=== PATIENT | female | born 1950 | race Caucasian/White ===

== ENCOUNTER 2019-05-21 06:00 | Outpatient (RCR) | payer MEDICARE, OTHER, SELFPAY | END 2019-06-11 00:01 | LOC: APT 06:00 | PROVIDERS: Family Provider Nurse Practitioner Family; Visit Provider Family Medicine | DX: M25.562 Pain in left knee (principal) | CPT/HCPCS: 97110 ×5; 97161 ==

== ENCOUNTER 2019-06-13 | Outpatient (RCR) | payer MEDICARE, OTHER, SELFPAY | END 2019-06-26 | disposition home or self-care (01) | LOC: APT | PROVIDERS: PCP Family Medicine; Visit Provider Family Medicine | DX: M25.562 Pain in left knee (principal) | CPT/HCPCS: 97110 ==

== ENCOUNTER 2019-08-05 13:17 | Outpatient (CLI) | payer MEDICARE, OTHER, SELFPAY ==
--- NOTE | 2019-08-05 13:38 | MM_ITS ---
WS: [id number] BILATERAL DIGITAL SCREENING MAMMOGRAPHY WITH CAD CLINICAL INFORMATION: SCREEN HISTORY: Screening mammogram. No current complaints. COMPARISON: May 15, 2018 TECHNIQUE: Bilateral CC and MLO views. FINDINGS: Scattered fibroglandular densities bilaterally. Punctate and lucent centered calcifications. No suspi cious focal mass, asymmetry, calcifications, or architectural distortion. No evidence of malignancy. MM/[place] [id number] IMPRESSION: BI-RADS: 2-Benign FOLLOW UP: 1 Year Follow-up Recommend return to annual screening mammography.
== END 2019-08-05 13:18 | disposition home or self-care (01) ==
LOC: RADSHAW 13:22
PROVIDERS: Family Provider Nurse Practitioner Family; PCP Family Medicine; Visit Provider Family Medicine
DX: Z12.31 Encounter for screening mammogram for malignant neoplasm of breast (principal)
CPT/HCPCS: 77067

== ENCOUNTER 2020-10-12 09:54 | Outpatient (CLI) | payer MEDICARE, OTHER, SELFPAY ==
--- NOTE | 2020-10-12 10:03 | MM_ITS ---
WS: [id number] BILATERAL SCREENING DIGITAL MAMMOGRAM WITH CAD HISTORY: SCREENING COMPARISON: 08/05/2019 and 05/08/2017 and 05/15/2018 Bilateral CC and MLO views submitted. Computer aided detection analyzed. Breast composition: There are scattered areas of fibroglandular density. No suspicious masses, microc alcifications or architectural distortion. Benign calcifications. MM/[place] [id number] IMPRESSION: BI-RADS: 2-Benign FOLLOW UP: 1 Year Follow-up
== END 2020-10-12 09:55 | disposition home or self-care (01) ==
LOC: RADSHAW 09:56
PROVIDERS: PCP Family Medicine; Visit Provider Family Medicine
DX: Z12.31 Encounter for screening mammogram for malignant neoplasm of breast (principal)
CPT/HCPCS: 77067

== ENCOUNTER 2020-12-06 20:00 | Emergency (ER) | payer MEDICARE, OTHER, SELFPAY ==
--- NOTE | 2020-12-06 20:25 | XRR_ITS ---
PROCEDURE INFORMATION: Exam: XR Chest Exam date and time: 12/06/2020 8:25 PM Age: 70 years old Clinical indication: Other: Weakness; Additional info: Nausea, weakness TECHNIQUE: Imaging protocol: XR of the chest. Views: 1 view. COMPARISON: No relevant prior studies available. FINDINGS: Lungs: Unremarkable. No consolidation. Pleural spaces: Unremarkable. No pleural effusion. No pneumothorax. Heart/Mediastinum: Unremarkable. No cardiomegaly. Bones/joints: Unremarkable. XR/XR chest 1V portable [id number] IMPRESSION: No acute findings.
--- NOTE | 2020-12-06 20:25 | ECG_ITS ---
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 Measurements Intervals [place] Rate: 83 P: 73 [place]: 164 QRS: 64 QRSD: 86 T: 76 QT: 388 QTc: 457 Interpretive Statements SINUS RHYTHM POSSIBLE LEFT ATRIAL ENLARGEMENT [-0.1mV P WAVE IN V1/V2] MINIMAL ST DEPRESSION [0.025+ mV ST DEPRESSION] No previous ECG available for comparison Electronically Signed On 12-07-2020 21:09:58 CDT by Jorge Yanes M.D. [id number]
[2020-12-06 20:57] VITALS: BP 151/79; PULSE 95; RESP 17; TEMP 36.6; O2SAT 96; BMI 32.9
[2020-12-06 21:32] VITALS: BP 148/82; PULSE 75; RESP 20; O2SAT 95
[2020-12-06 21:47] LABS: Basophils # 0.1 10^3/uL (0.0-0.1); Basophils % 0.8 %; Eosinophils # 0.1 10^3/uL (0.0-0.8); Eosinophils % 1.5 %; Hematocrit 43.2 % (37.0-47.0); Lymphocytes # 2.6 10^3/uL (0.8-4.8); Lymphocytes % 35.9 %; Mean Corpuscular HGB Conc 32.4 g/dL (30.0-36.0); Mean Corpuscular Hemoglobin 30.4 pg (28.0-34.0); Mean Corpuscular Volume 93.9 fL (81-99); Mean Platelet Volume 12.2 fL (7.4-10.4); Monocytes # 0.7 10^3/uL (0.2-0.9); Monocytes % 9.5 %; Neutrophils # 3.72 10^3/uL (1.8-7.7); Neutrophils % 52.2 %; Nucleated Red Blood Cells % 0 %; Platelet Count 261 10^3/cmm (130-400); Red Cell Distribution Width 13.1 % (12.1-15.1); White Blood Count 7.2 10^3/uL (4.0-10.0)
--- NOTE | 2020-12-06 21:49 | XRR_ITS ---
PROCEDURE INFORMATION: Exam: XR Abdomen Exam date and time: 12/06/2020 9:49 PM Age: 70 years old Clinical indication: Bloating; Additional info: Abd pain, bloating TECHNIQUE: Imaging protocol: XR of the abdomen. Views: Frontal supine view of the abdomen. 1 View. COMPARISON: CR (CHEST, ) 12/06/2020 9:31 PM FINDINGS: Gastrointestinal tract: Normal. No bowel dilation. Bones/joints: Unremarkable. XR/XR KUB portable [id number] IMPRESSION: No acute findings.
[2020-12-06 21:54] LABS: Bilirubin Urine Neg (Negative); Blood Urine Neg (Negative); Glucose Urine UA Norm (Normal); Ketones Urine Negative (Negative); Nitrate Urine Negative (Negative); Protein Urine Neg (Negative); Specific Gravity, Urine 1.005 (1.005-1.030); Urine Appearance Clear (CLEAR); Urine Color Yellow (Yellow); Urobilinogen Urine Norm (Negative); pH Urine 7 (5-7)
[2020-12-06 21:55] LABS: Add Urine Microscopic? YES; Leukocyte Esterase Urine 1+ (Negative)
[2020-12-06 21:58] LABS: Lactic Sepsis W/Reflex 1.1 mmol/L (0.5-2.2); Troponin(5th) Baseline 11 ng/L (0-10)
[2020-12-06 22:00] VITALS: BP 142/75; PULSE 77; RESP 22; O2SAT 94
[2020-12-06] MEDS: sodium chloride 0.9% 1,000 ML 999 ML IV ×2 (22:00→23:58)
[2020-12-06 22:03] LABS: Alanine Aminotransferase 24 U/L (0-33); Albumin Level 4.1 g/dL (3.5-5.2); Alkaline Phosphatase 74 IU/L (35-105); Anion Gap 14.4 (5-19); Aspartate Amino Transferase 34 U/L (0-32); Blood Urea Nitrogen 6 mg/dL (8-23); Calcium 9.6 mg/dL (8.5-10.5); Carbon Dioxide 27 mmol/L (22-29); Chloride 101 mmol/L (98-107); Globulin 2.3 g/dL (1.3-4.6); Glucose 117 mg/dL (65-115); Osmolality Calculated 287 mOsm/kg (285-295); Potassium 3.4 mmol/L (3.5-5.1); Sodium 139 mmol/L (136-145); Thyroid Stimulating Hormone 3.08 uIU/mL (0.27-4.20); Total Bilirubin 0.6 mg/dL (0.15-1.2); Total Protein 6.4 g/dL (6.6-8.7)
[2020-12-06 22:17] LABS: Magnesium 1.9 mg/dL (1.7-2.3)
[2020-12-06 22:17] LABS: Add Urine Culture? No; Bacteria Urine 2+ /hpf; RBC Urine 0-4 /hpf (0-2); Squamous Epithelial Cell Urine 15-25 /hpf (0-5); WBC Urine 25-40 /hpf (0-5)
[2020-12-06 22:20] LABS: Creatine Phosphokinase 515 U/L (26-192)
--- NOTE | 2020-12-06 22:25 | ECG_ITS ---
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 Measurements Intervals [place] Rate: 72 P: 69 MT: 175 QRS: 45 QRSD: 90 T: 74 QT: 438 QTc: 482 Interpretive Statements SINUS RHYTHM MINIMAL ST DEPRESSION [0.025+ mV ST DEPRESSION] Compared to ECG 12/06/2020 20:53:14 No significant changes Electronically Signed On 12-09-2020 0:33:16 CDT by Jorge Yanes M.D. [email or web address] [email or web address].[email or web address]/store/[id number]
[2020-12-06] MEDS: cefTRIAXone 1,000 MG in sodium chloride 0.9% (plus) 50 ML 100 MG IV (23:15)
[2020-12-06 23:45] VITALS: BP 162/103; PULSE 78; RESP 21; O2SAT 94
[2020-12-07] VITALS: BP 162/90; PULSE 85; RESP 21; O2SAT 95
[2020-12-07 00:38] VITALS: BP 155/85; PULSE 79; RESP 14; TEMP 36.6; O2SAT 96
--- NOTE | 2020-12-07 07:14 | W.ED.DIZZY ---
HPI - Dizziness General: Chief Complaint: Dizziness Stated Complaint: nausea, weak Time Seen by Provider: 12/06/20 21:20 History of Present Illness: HPI Narrative: 70-year-old female who complains of malaise, dizziness when getting up, nausea, anorexia, for the past few days. She notes that she has been moving, and working out in the heat quite a bit. She reports several instances of getting too hot . She notes that her urine has been stronger as well. She denies coughing or vomiting. She denies diarrhea. MD elicited complaint: dizziness and lightheadedness Pertinent past history: other Onset (ago): day(s) Timing: gradual onset Severity: moderate Description: lightheadedness, off-balance and near-syncope Context: exertion and other History of similar symptoms: No Exacerbating factors: movement/ambulation and change in body position Relieving factors: rest Associated symptoms: Reports malaise, nausea and weakness (Generalized); Denies change in hearing, chest pain, chills, cough, diaphoresis, fevers/chills, headache(s), nasal congestion, palpitations, rash, short of breath or syncope Associated neuro symptoms: Deny confusion, difficulty speaking, dysphagia, extremity weakness, facial numbness, facial weakness or visual changes Review of Systems Const: Reports: malaise; Denies: chills or diaphoresis ENMT: Denies: change in hearing or nasal congestion Card: Denies: chest pain, palpitations or syncope GI: Reports: nausea; Denies: dysphagia Neuro: Denies: headache(s) or confusion Physical Exam Const: GENERAL APPEARANCE: well developed ORIENTATION/CONSCIOUSNESS: Yes oriented to person, Yes oriented to place and Yes oriented to time HENMT: COMMON NORMALS: normocephalic, external ears normal and Normal external nose present HEAD & SCALP: normocephalic FACE & SINUS: normal facial exam NOSE: Normal external nose present and No nasal discharge present EXTERNAL EAR: Yes external ears normal THROAT: posterior oropharynx normal; no peritonsillar mass Eye: COMMON NORMALS: Equal, round and reactive pupils present, EOMs intact bilaterally and conjunctivae normal EYELID: eyelids normal CONJUNCTIVA: Yes conjunctivae normal PUPIL: Yes Equal, round and reactive pupils present Neck/C-Spine: GENERAL: No tracheal deviation Chest: COMMONS NORMALS: normal inspection of the chest CHEST: No tenderness Resp: COMMON NORMALS: clear to auscultation bilaterally EFFORT & INSPECTION: No tachypneic, No respiratory distress, No retractions, No uses accessory muscles and No tracheal deviation AUSCULTATION: clear to auscultation bilaterally, no rhonchi, no wheezes and lung sounds not diminished Cardio: COMMON NORMALS: regular rate and regular rhythm RATE: regular rate RHYTHM: regular rhythm HEART SOUNDS: no murmurs PERIPHERAL PULSES: radial pulses present GI: INSPECTION: No abdominal distension AUSCULTATION: No Hyperactive bowel sounds present and No Hypoactive bowel sounds present PALPATION: No Guarding due to palpation present (GI) and No Rigid due to palpation PERCUSSION: no dullness to percussion and no tympanic to percussion Neuro: SENSORIUM/ORIENTATION: Yes oriented to person, Yes oriented to place and Yes oriented to time Psych: COMMON NORMALS: mental status grossly normal Skin: COMMON NORMALS: no rashes or lesions noted GENERAL SKIN EXAM: no rashes or lesions noted Course Vital Signs: Vital signs: Vital Signs Temperature 98 F 12/07/20 00:38 Pulse Rate 79 12/07/20 00:38 Respiratory Rate 14 12/07/20 00:38 Blood Pressure 155/85 12/07/20 00:38 Pulse Oximetry 96 12/07/20 00:38 MDM - Dizziness MDM Narrative: Medical decision making narrative: Patient CK is only mildly elevated at 515. Renal function is normal. Potassium is minimally low, otherwise electrolytes and other labs are benign. She does have a significant urinary tract infection on urinalysis. She is received 2 L of fluid here, and is feeling improved. She has been treated with Rocephin for the UTI. She would like to go home. She is going to be discharged on cefdinir, and oral Zofran for the nausea. She knows to return for any worsening symptoms whatsoever. Her KUB was also negative as well as her chest x-ray. Lab Data: Labs: Lab Results 12/06/20 12/06/20 12/06/20 Range/Units 21:21 21:21 21:21 WBC 7.2 (4.0-10.0) 10^3/ uL RBC 4.60 (4.1-5.3) 10^6/u L Hgb 14.0 (11.5-15.3) g/dL Hct 43.2 (37.0-47.0) % MCV 93.9 (81-99) fL MCH 30.4 (28.0-34.0) pg MCHC 32.4 (30.0-36.0) g/dL RDW 13.1 (12.1-15.1) % Plt Count 261 (130-400) 10^3/c mm MPV 12.2 H (7.4-10.4) fL Neut % (Auto) 52.2 % Lymph % (Auto) 35.9 % [place] % (Auto) 9.5 % Eos % (Auto) 1.5 % Baso % (Auto) 0.8 % Neut # (Auto) 3.72 (1.8-7.7) 10^3/u L Lymph # (Auto) 2.6 (0.8-4.8) 10^3/u L [place] # (Auto) 0.7 (0.2-0.9) 10^3/u L Eos # (Auto) 0.1 (0.0-0.8) 10^3/u L Baso # (Auto) 0.1 (0.0-0.1) 10^3/u L Nucleated RBC % (a uto) 0 % Nucleated RBCs # 0.0 /100WBC Sodium 139 (136-145) mmol/L Potassium 3.4 L (3.5-5.1) mmol/L Chloride 101 (98-107) mmol/L Carbon Dioxide 27 (22-29) mmol/L Anion Gap 14.4 (5-19) BUN 6 L (8-23) mg/dL Creatinine 0.7 (0.5-0.9) mg/dL GFR Calculation Not Reportable Glucose 117 H (65-115) mg/dL Calculated Osmolal ity 287 (285-295) mOsm/k g Lactic Acid 1.1 (0.5-2.2) mmol/L Calcium 9.6 (8.5-10.5) mg/dL Magnesium (1.7-2.3) mg/dL Total Bilirubin 0.6 (0.15-1.2) mg/dL AST 34 H (0-32) U/L ALT 24 (0-33) U/L Alkaline Phosphata se 74 (35-105) IU/L Creatine Kinase (26-192) U/L Troponin T Baselin e (0-10) ng/L Total Protein 6.4 L (6.6-8.7) g/dL Albumin 4.1 (3.5-5.2) g/dL Globulin 2.3 (1.3-4.6) g/dL TSH 3.08 (0.27-4.20) uIU/ mL Urine Color (Yellow) Urine Appearance (CLEAR) Urine pH (5-7) Ur Specific Gravit y (1.005-1.030) Urine Protein (Negative) Urine Glucose (UA) (Normal) Urine Ketones (Negative) Urine Blood (Negative) Urine Nitrate (Negative) Urine Bilirubin (Negative) Urine Urobilinogen (Negative) mg/dL Ur Leukocyte [place] ase (Negative) Urine RBC (0-2) /hpf Urine WBC (0-5) /hpf Ur Squamous Epith Cells (0-5) /hpf Amorphous Sediment Urine Bacteria (NONE) /hpf 12/06/20 12/06/20 12/06/20 Range/Units 21:21 21:21 21:31 WBC (4.0-10.0) 10^3/ uL RBC (4.1-5.3) 10^6/u L Hgb (11.5-15.3) g/dL Hct (37.0-47.0) % MCV (81-99) fL MCH (28.0-34.0) pg MCHC (30.0-36.0) g/dL RDW (12.1-15.1) % Plt Count (130-400) 10^3/c mm MPV (7.4-10.4) fL Neut % (Auto) % Lymph % (Auto) % [place] % (Auto) % Eos % (Auto) % Baso % (Auto) % Neut # (Auto) (1.8-7.7) 10^3/u L Lymph # (Auto) (0.8-4.8) 10^3/u L [place] # (Auto) (0.2-0.9) 10^3/u L Eos # (Auto) (0.0-0.8) 10^3/u L Baso # (Auto) (0.0-0.1) 10^3/u L Nucleated RBC % (a uto) % Nucleated RBCs # /100WBC Sodium (136-145) mmol/L Potassium (3.5-5.1) mmol/L Chloride (98-107) mmol/L Carbon Dioxide (22-29) mmol/L Anion Gap (5-19) BUN (8-23) mg/dL Creatinine (0.5-0.9) mg/dL GFR Calculation Glucose (65-115) mg/dL Calculated Osmolal ity (285-295) mOsm/k g Lactic Acid (0.5-2.2) mmol/L Calcium (8.5-10.5) mg/dL Magnesium 1.9 (1.7-2.3) mg/dL Total Bilirubin (0.15-1.2) mg/dL AST (0-32) U/L ALT (0-33) U/L Alkaline Phosphata se (35-105) IU/L Creatine Kinase 515 H* (26-192) U/L Troponin T Baselin e 11 H (0-10) ng/L Total Protein (6.6-8.7) g/dL Albumin (3.5-5.2) g/dL Globulin (1.3-4.6) g/dL TSH (0.27-4.20) uIU/ mL Urine Color Yellow (Yellow) Urine Appearance Clear (CLEAR) Urine pH 7 (5-7) Ur Specific Gravit y 1.005 (1.005-1.030) Urine Protein Neg (Negative) Urine Glucose (UA) Norm (Normal) Urine Ketones Negative (Negative) Urine Blood Neg (Negative) Urine Nitrate Negative (Negative) Urine Bilirubin Neg (Negative) Urine Urobilinogen Norm (Negative) mg/dL Ur Leukocyte [place] ase 1+ H (Negative) Urine RBC 0-4 H (0-2) /hpf Urine WBC 25-40 H (0-5) /hpf Ur Squamous Epith Cells 15-25 H (0-5) /hpf Amorphous Sediment Not Reportable Urine Bacteria 2+ H (NONE) /hpf Discharge Plan Discharge Patient Disposition: Home Clinical Impression: Acute dehydration Urinary tract infection Qualifiers: Urinary tract infection type: acute cystitis Hematuria presence: without hematuria Qualified Code(s): N30.00 - Acute cystitis without hematuria Condition: Stable Prescriptions: New cefdinir 300 mg capsule 300 mg PO BID 7 Days Qty: 14 RF: 0 Zofran 4 mg tablet 4 mg PO Q6H PRN (Reason: nausea and vomiting) Qty: 10 RF: 0 Discharge Orders: Discharge ED (Routine); Ordered 12/07/20 Ordered By: Semaj Saab Referrals: Que Joyce MD [Primary Care Provider] - 1-3 days Discharge Diet: Advance as tolerated Discharge Activity: Increase activity as tolerated Patient Instructions: Dehydration (ED), Urinary Tract Infection in Women (ED) Activity Restrictions/Additional Instructions: Return for fever greater than 100, mental status changes, worsening dehydration, any other concerning symptoms. Make sure liquid intake is appropriate. Follow-up in the next couple of days with your doctor. Antibiotics as directed. Coding Level of Care Code ED Higher Level Teaching Assistant for Juliana Romero
== END 2020-12-07 00:40 | disposition home or self-care (01) ==
PROVIDERS: Physician Assistant; Emergency Provider Emergency Medicine; PCP Family Medicine
DX: N30.00 Acute cystitis without hematuria (principal); E86.0 Dehydration; R53.81 Other malaise
CPT/HCPCS: 71045; 74018; 80053; 81001; 82550; 83605; 83735; 84443; 84484; 85025; 93005; 96361; 96365; 99284; J0696; J7030

== ENCOUNTER 2021-03-08 15:45 | Outpatient (CLI) | payer MEDICARE, OTHER, SELFPAY ==
--- NOTE | 2021-03-08 | XR_ITS ---
WS: [id number] SCREENING DEXA SCAN [facility] CLINICAL INFORMATION: OSTEOPOROSIS COMPARISON: None. FINDINGS: The L1-L4 bone mineral density measures 1.249 g/cm2. This corresponds to a T score score of 0.6 and Z score of 1.9. Left femoral neck bone mineral density measures 0.951 g/cm2. This corresponds to a T score of -0.4 an d Z score of 0.9. Right femoral neck bone mineral density measures 0.978 g/cm2. This corresponds to a T score -0.2of an d Z score of 1.1. Mean femoral neck bone mineral density measures 0.965 g/cm2. This corresponds to a T score of -0.3 an d Z score of 1.0. XR/XR DEXA axial skeleton* [id number] IMPRESSION: Normal bone mineralization. Patient's FRAX calculated 10 year probability for major osteoporotic fracture i s 9.1 % and osteoporotic hip fracture is 1.1%.
== END 2021-03-08 15:46 | disposition home or self-care (01) ==
PROVIDERS: PCP Family Medicine; Visit Provider Family Medicine
DX: M81.0 Age-related osteoporosis without current pathological fracture (principal)
CPT/HCPCS: 77080

== ENCOUNTER 2021-11-12 13:02 | Outpatient (CLI) | payer MEDICARE, OTHER, SELFPAY ==
--- NOTE | 2021-11-12 13:07 | MM_ITS ---
WS: [id number] BILATERAL 3D TOMOSYNTHESIS DIGITAL SCREENING MAMMOGRAPHY WITH CAD CLINICAL INFORMATION: SCREENING HISTORY: Screening mammogram. No current complaints. COMPARISON: October 12, 2020 TECHNIQUE: Bilateral CC and MLO views. FINDINGS: Scattered fibroglandular densities bilaterally. Punctate and lucent centered calcifications. Stable i ntramammary lymph nodes upper outer LEFT breast. No suspicious focal mass, asymmetry, calcifications, or architectural distortion. No evidence of malignancy. MM/[place] [id number] IMPRESSION: BI-RADS: 2-Benign FOLLOW UP: 1 Year Follow-up Recommend return to annual screening mammography.
== END 2021-11-12 13:03 | disposition home or self-care (01) ==
LOC: RAD 13:03
PROVIDERS: PCP Family Medicine; Visit Provider Family Medicine
DX: Z12.31 Encounter for screening mammogram for malignant neoplasm of breast (principal)
CPT/HCPCS: 77063; 77067

== ENCOUNTER → 2021-12-24 10:39 | Outpatient (BNVA) | payer MEDICARE, OTHER, SELFPAY | PROVIDERS: PCP Family Medicine; Visit Provider Podiatrist Foot & Ankle Surgery | DX: S82.51XA Displaced fracture of medial malleolus of right tibia, initial encounter for closed fracture (principal); S99.911A Unspecified injury of right ankle, initial encounter; W19.XXXA Unspecified fall, initial encounter | CPT/HCPCS: 73610; 73620; 73630; 99204 ==

== ENCOUNTER → 2022-02-08 10:18 | Outpatient (BNVA) | payer MEDICARE, OTHER, SELFPAY | PROVIDERS: PCP Family Medicine; Visit Provider Nurse Practitioner Family | DX: R07.89 Other chest pain (principal) | CPT/HCPCS: 71046; 85025 ==

== ENCOUNTER → 2022-03-31 09:02 | Outpatient (BNVA) | payer MEDICARE, OTHER, SELFPAY | PROVIDERS: PCP Family Medicine; Visit Provider Nurse Practitioner Family | DX: R30.0 Dysuria (principal); N39.0 Urinary tract infection, site not specified | CPT/HCPCS: 81000 ==

== ENCOUNTER → 2022-04-27 11:32 | Outpatient (BNVA) | payer MEDICARE, OTHER, SELFPAY | PROVIDERS: PCP Family Medicine; Visit Provider Nurse Practitioner Family | DX: N39.0 Urinary tract infection, site not specified (principal) | CPT/HCPCS: 81000; 87077; 87086; 87184 ==

== ENCOUNTER → 2022-05-11 11:31 | Outpatient (BNVA) | payer MEDICARE, OTHER, SELFPAY | PROVIDERS: PCP Family Medicine; Visit Provider Nurse Practitioner Family | DX: N39.0 Urinary tract infection, site not specified (principal) | CPT/HCPCS: 81000 ==

== ENCOUNTER → 2022-06-29 13:47 | Outpatient (BNVA) | payer MEDICARE, OTHER, SELFPAY | PROVIDERS: PCP Family Medicine; Visit Provider Nurse Practitioner Family | DX: R30.0 Dysuria (principal) | CPT/HCPCS: 81000 ==

== ENCOUNTER → 2022-08-31 09:00 | Outpatient (BNVA) | payer MEDICARE, OTHER, SELFPAY | PROVIDERS: PCP Family Medicine; Visit Provider Nurse Practitioner Family | DX: J01.40 Acute pansinusitis, unspecified (principal); R05.9 Cough, unspecified | CPT/HCPCS: 87426 ==

== ENCOUNTER → 2022-11-02 10:06 | Outpatient (BNVA) | payer MEDICARE, OTHER, SELFPAY | PROVIDERS: PCP Family Medicine; Visit Provider Nurse Practitioner Family | DX: R30.0 Dysuria (principal) | CPT/HCPCS: 81000 ==

== ENCOUNTER → 2022-11-22 10:51 | Outpatient (BNVA) | payer MEDICARE, OTHER, SELFPAY | PROVIDERS: PCP Family Medicine; Visit Provider Nurse Practitioner Family | DX: N39.0 Urinary tract infection, site not specified (principal) | CPT/HCPCS: 81000 ==

== ENCOUNTER → 2023-01-06 10:10 | Outpatient (BNVA) | payer MEDICARE, OTHER, SELFPAY | PROVIDERS: PCP Family Medicine; Visit Provider Nurse Practitioner Family | DX: M79.89 Other specified soft tissue disorders (principal); R39.11 Hesitancy of micturition | CPT/HCPCS: 80053; 81000; 85025 ==

== ENCOUNTER 2023-02-21 11:06 | Outpatient (CLI) | payer MEDICARE, OTHER, SELFPAY ==
--- NOTE | 2023-02-21 11:24 | USCV_ITS ---
Venita Oconnell Age: 72 Gender: F : 1950 Exam Date: 02/21/2023 11:38 Ordering Phys: Deandre Bay DO Technologist: Exam [place] [facility] [place]: Chest pain BP: 125 / 70 HR: 70 Rhythm: Sinus Technical Quality: Adequate MEASUREMENTS (Male / Female) Normal Values 2D ECHO LV Diastolic Diameter PLAX 4.0 cm 4.2 - 5.9 / 3.9 - 5.3 cm LV Systolic Diameter PLAX 2.3 cm IVS Diastolic Thickness 0.9 cm 0.6 - 1.0 / 0.6 - 0.9 cm IVS Systolic Thickness 1.6 cm LVPW Diastolic Thickness 1.1 cm 0.6 - 1.0 / 0.6 - 0.9 cm LVPW Systolic Thickness 1.1 cm LVOT Diameter 2.0 cm LV Ejection Fraction 2D Teich 74.6 % LV Ejection Fraction MOD 2C 80.1 % LV Ejection Fraction 2C AL 80.2 % LA Diameter 2.8 cm IVC Diameter 1.2 cm M-MODE Aortic Annulus Diameter 2.5 cm LA Ao Ratio MM 1.2 MV E Point Septal Separation 0.6 cm DOPPLER AV Peak Velocity 182.0 cm/s LVOT Peak Velocity 100.0 cm/s AV Area Cont Eq vti 2.2 cm squared AV Area Cont Eq pk 1.8 cm squared MV Area PHT 3.9 cm squared Mitral E to A Ratio 0.9 MV E' Velocity 55.0 cm/s Mitral E to MV E' Ratio 9.5 Mitral E to LV E' Lateral Ratio 9.6 Mitral E to LV E' Septal Ratio 9.4 TR Peak Velocity 302.8 cm/s TR Peak Gradient 36.7 mmHg TV Peak E Velocity 101.0 cm/s Right Atrial Pressure 3.0 mmHg Pulmonary Artery Systolic Pressu 39.7 mmHg RV Acceleration Time 0.2 s FINDINGS Left Ventricle Normal left ventricular size, systolic function and wall thickness, with no regional wall motion abnormalities. Left ventricular ejection fraction is estimated at 65 %. Normal diastolic function. Right Ventricle Normal right ventricular size and systolic function. Right ventricular systolic pressure 39.7 mmHg. Right Atrium Normal right atrial size. Left Atrium Normal left atrial size. Mitral Valve Mildly thickened mitral valve. No mitral valve stenosis. Mild mitral valve regurgitation. Aortic Valve Structurally normal trileaflet aortic valve. No aortic valve stenosis. Trace aortic valve regurgitation. Tricuspid Valve Structurally normal tricuspid valve. No tricuspid valve stenosis. Mild tricuspid valve regurgitation. Pulmonic Valve Pulmonic valve not well visualized. Trace pulmonary valve regurgitation. Pericardium No pericardial effusion. Aorta Normal size aortic root and proximal ascending aorta. IVC Normal IVC dimension with >50% respiratory change of the inferior vena cava. CONCLUSIONS 1. Normal left ventricular size, systolic function and wall thickness, with no regional wall motion abnormalities. Left ventricular ejection fraction is estimated at 65 %. Normal diastolic function. 2. Mild mitral and tricuspid valve regurgitation. 3. No prior similar studies to compare. Indira Love MD (Electronically Signed) Final Date: 26 February 2023 08:14 S
== END 2023-02-21 11:07 | disposition home or self-care (01) ==
PROVIDERS: PCP Family Medicine; Visit Provider Electrodiagnostic Medicine
DX: R01.1 Cardiac murmur, unspecified (principal); I08.1 Rheumatic disorders of both mitral and tricuspid valves
CPT/HCPCS: 93306

== ENCOUNTER 2023-03-14 19:10 | Inpatient (IN) | payer MEDICARE, OTHER, SELFPAY ==
[2023-03-14 19:12] VITALS: BP 172/76; PULSE 68; RESP 16; TEMP 36.7; O2SAT 84; BMI 29.2
[2023-03-14 19:21] VITALS: O2SAT 99
--- NOTE | 2023-03-14 19:25 | XRR_ITS ---
PROCEDURE INFORMATION: Exam: XR Right Hip Exam date and time: 03/14/2023 7:52 PM Age: 72 years old Clinical indication: Injury or trauma; Fall; Blunt trauma (contusions or hematomas); Right; Hip and pelvic region TECHNIQUE: Imaging protocol: Radiologic exam of the right hip. Views: 1 view hip with pelvis when performed. COMPARISON: CR XR KUB portable [id number] 12/06/2020 9:57 PM FINDINGS: Bones/joints: Acute transverse fracture through the right proximal femur without involvement of the greater or lesser trochanter. Comminution is present with small displaced fracture fragments. Associated prominent medial angulation of the distal femur relative to the proximal femur. Soft tissues: Asymmetric soft tissue swelling about the right hip small thigh. XR/XR hip RT 2-3V wo/w pel* [id number] IMPRESSION: Acute transverse fracture of the right proximal femoral shaft with prominent medial angulation of the distal femur.
--- NOTE | 2023-03-14 19:25 | XRR_ITS ---
PROCEDURE INFORMATION: Exam: XR Right Knee Exam date and time: 03/14/2023 7:45 PM Age: 72 years old Clinical indication: Injury or trauma; Fall; Blunt trauma; Knee; Right TECHNIQUE: Imaging protocol: Radiologic exam of the right knee. Views: 3 views. COMPARISON: No relevant prior studies available. FINDINGS: Bones/joints: No acute fracture or malalignment. Mild tibiofemoral compartment osteoarthrosis. Soft tissues: Unremarkable. XR/XR knee RT 3V* [id number] IMPRESSION: No acute findings.
--- NOTE | 2023-03-14 19:26 | ED_ITS ---
HPI - Fall General: Chief Complaint: Fall Stated Complaint: fall, right hip pain Time Seen by Provider: 03/14/23 19:19 Source: patient Mode of arrival: EMS Limitations: physical limitation History of Present Illness: Patient is a 72-year-old female who presents to the emergency room via EMS for a fall. Patient states that she was at home moving a table, and slipped and fell on her right lateral hip. Patient has a complaint of lumbar back pain, right hip, right lateral leg, right knee pain. Patient denies any nausea or vomiting. Patient denies hitting her head or losing consciousness. Patient did state that she laid for hours before she was unable to contact family. Patient's pain at this time is 8/10 on pain scale. Denies any other complaints at this time. MD complaint: fall Fall from: standing Fall witnessed: no Loss of consciousness: None Associated symptoms-after fall: Denies abdominal pain, chest pain or headache(s) Review of Systems Const: Denies: fever(s) or chills Eyes: Denies: change in vision or blurry vision ENMT: Denies: throat pain or uvular edema Card: Denies: chest pain or palpitations Resp: Denies: dyspnea or productive cough GI: Denies: abdominal pain, nausea or vomiting : Denies: flank pain or difficulty voiding Musc: Reports: back pain and extremity pain Skin/Breast: Denies: rash or pruritus Neuro: Denies: headache(s) PFSH ED PFSH: Family History Other Cancer Diabetes Social History Smoking and tobacco status: former smoker Alcohol intake: never Caregiver/support person: No Lives independently: Yes Household members: none Marital status: / Number of children: 1 service: No Current occupational status: retired Physical Exam Const: COMMON NORMALS: patient oriented x3 and alert GENERAL APPEARANCE: cooperative HENMT: COMMON NORMALS: normocephalic HEAD & SCALP: normocephalic THROAT: no uvular edema Eye: COMMON NORMALS: Equal, round and reactive pupils present and EOMs intact bilaterally GENERAL EYE: appearance normal, both eyes and all related structures PUPIL: Yes Equal, round and reactive pupils present Neck/C-Spine: COMMON NORMALS: full ROM, no lymphadenopathy and no JVD Lymph: LYMPHATIC: no lymphadenopathy noted Chest: CHEST: Yes Symmetrical chest wall rise Resp: COMMON NORMALS: normal respiratory effort and clear to auscultation bilaterally EFFORT & INSPECTION: Yes symmetric chest movement AUSCULTATION: clear to auscultation bilaterally Cardio: COMMON NORMALS: no JVD and S1 normal heart sound present HEART SOUNDS: S1 normal heart sound present GI: COMMON NORMALS: Normal to inspection, nondistended, normoactive bowel sounds present : BLADDER/KIDNEY EXAM: Yes CVA tenderness Back/Pelvis: GENERAL BACK: Yes CVA tenderness LUMBAR SPINE/LOWER BACK: Yes lumbar spinal tenderness PELVIS: Yes tenderness over symphysis pubis Extremity: COMMON NORMALS: normal to inspection RIGHT LOWER EXTREMITY: Yes hip joint (pain) Right hip: Yes palpation and Yes knee joint (pain) Right knee: Yes palpation Neuro: COMMON NORMALS: patient oriented x3 SENSORIUM/ORIENTATION: Yes alert Course Vital Signs: Vital signs: Vital Signs Temperature 98.0 F 03/14/23 19:12 Pulse Rate 68 03/14/23 19:12 Respiratory Rate 18 03/14/23 19:46 Blood Pressure 172/76 03/14/23 19:12 Pulse Oximetry 98 03/14/23 19:46 Oxygen Delivery Me thod Nasal Cannula 03/14/23 19:21 Oxygen Flow Rate 2 03/14/23 19:21 MDM - Fall Medical Decision Making Patient presents with right hip fracture after a fall spoke to hospitalist along with orthopedist and will admit at this time. Medical Records I reviewed the patient's medical records. XR interpretation done by ED provider, pending radiology final review Discharge Plan Discharge Patient Disposition: Admitted As Inpatient Clinical Impression: Closed fracture of right hip Condition: Stable Coding Level of Care Code ED Talent Development Manager for Juliana Romero
--- NOTE | 2023-03-14 19:37 | XRR_ITS ---
PROCEDURE INFORMATION: Exam: XR Chest Exam date and time: 03/14/2023 8:00 PM Age: 72 years old Clinical indication: Injury or trauma; Fall; Blunt trauma (contusions or hematomas) TECHNIQUE: Imaging protocol: Radiologic exam of the chest. Views: 1 view. COMPARISON: CR XR chest 2V* [id number] 02/08/2022 10:17 AM FINDINGS: Lungs: Moderate lung expansion. Subtle asymmetric left basal opacities. Pleural spaces: No pleural effusion. No pneumothorax. Heart/Mediastinum: Normal cardiomediastinal silhouette. Bones/joints: No acute osseous abnormality. XR/XR chest 1V portable [id number] IMPRESSION: Subtle asymmetric left basal opacities which may be on the basis of atelectasis given suboptimal lung expansion. Superimposed aspiration in the setting of trauma possible.
[2023-03-14 19:46] VITALS: RESP 18; O2SAT 98
[2023-03-14] MEDS: morphine 4 mg/mL SDV 1 mL IVP (19:46)
[2023-03-14 19:49] VITALS: BP 200/94; PULSE 74; RESP 18; O2SAT 98
--- NOTE | 2023-03-14 19:59 | XRR_ITS ---
PROCEDURE INFORMATION: Exam: XR Left Femur Exam date and time: 03/14/2023 8:02 PM Age: 72 years old Clinical indication: Injury or trauma; Fall; Blunt trauma; Thigh or upper leg; Left TECHNIQUE: Imaging protocol: Radiologic exam of the left femur. Views: 2 views. COMPARISON: No relevant prior studies available. FINDINGS: Bones/joints: Unremarkable. No acute fracture. Soft tissues: Vascular calcification. XR/XR femur LT min 2V* [id number] IMPRESSION: No acute osseous abnormality of the left femur.
--- NOTE | 2023-03-14 20:32 | ECG_ITS ---
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 Measurements Intervals [place] Rate: 71 P: 74 [place]: 173 QRS: 44 QRSD: 92 T: 67 QT: 418 QTc: 457 Interpretive Statements SINUS RHYTHM NONSPECIFIC ST & T-WAVE ABNORMALITY Compared to ECG 12/06/2020 22:11:26 T-wave abnormality now present ST (T wave) deviation no longer present Electronically Signed On 03-15-2023 8:27:19 CDT by Benji Barnhart M.D. [id number]
[2023-03-14] MEDS: HYDROmorphone 1 mg/mL INJ 1 mL 0.5 MG IVP (20:34)
[2023-03-14 20:43] VITALS: BP 167/92; PULSE 80; RESP 18; O2SAT 97
--- NOTE | 2023-03-14 21:01 | P.CONIM_ITS ---
Providers/Reason For Consult Consulting Physician/Specialty*: Rc Ramachandran DO/orthopedic surgery Reason for Consult*: Right hip fracture (right subtrochanteric femur fracture Requesting Physician: Dr. Dell Steele Attending Physician: Diogo Sanchez MD Primary Care Provider: Que Joyce MD History of Present Illness History of Present Illness Venita Oconnell is a 72 year old female presents emergency department status post ground-level fall. Has pain in the right hip inability to bear weight found to have a right subtrochanteric femur fracture. History reveals patient has had some pain prior in the right femur region. She states a lot of this has been more sciatica which she has been worked up for. History reveals she has been on bisphosphonates for years she takes this weekly. Findings on x-ray con sistent with an atypical bisphosphonate subtrochanteric femur fracture. Overall patient's fairly healthy she denies any cardiac or pulmonary issues. Denies being on any anticoagulants. Denies loss of consciousness denies any other injuries at this time. Patient lives at home by herself and is very independent does not utilize any cane or walker at baseline. Accompanied by her granddaughter today. Review of Systems General: Reports: 10 or more systems reviewed and unremarkable except in HPI and below Medications/Allergies Home Medications Medication Instructions Recorded Confirmed Last Taken Type donepezil 10 mg tablet 10 mg PO DAILY 12/06/21 01/12/23 Unknown History mupirocin 2 % topical ointment 1 applic topical BID #15 grams 12/24/21 01/12/23 Unknown Rx famciclovir 500 mg tablet 500 mg PO TID 7 days #21 tabs 02/08/22 01/12/23 Un known Rx propranolol 20 mg tablet 10 mg PO ONCE 02/08/22 01/12/23 Unknown History gabapentin 300 mg capsule 300 mg PO BID #60 caps 02/18/22 01/12/23 Unknown Rx furosemide 20 mg tablet (Lasix) 20 mg PO DAILY edema #30 tabs 01/31/23 Unknown Rx Allergies Allergy/AdvReac Type Severity Reaction Status Date / Time No Known Allergies Allergy Verified 03/14/23 19:20 PFSH Acute PFSH: Family History Other Cancer Diabetes Social History (Reviewed 01/12/23 @ 09:34 by ROSALINDA Aleman Smoking and tobacco status: former smoker Alcohol intake: never Caregiver/support person: No Lives independently: Yes Household members: none Marital status: / Number of children: 1 service: No Current occupational status: retired Vitals/I&O/Wt Last Vital Signs Temp 98.0 F 03/14/23 19:12 Pulse 80 03/14/23 20:43 Resp 18 03/14/23 20:43 BP 167/92 03/14/23 20:43 Pulse Ox 97 03/14/23 20:43 O2 Del Method Room Air 03/14/23 20:43 O2 Flow Rate 2 03/14/23 19:21 Weight last 48 hrs Weight 160 lb Physical Exam Narrative: Orthopedic examination: Examination of the right lower extremity demonstrates a mild discomfort along the distal femur no significant swelling noted about the knee. Swelling noted at the right femur. Tenderness to palpation about the right hip. Patient's right lower extremity shortened and externally rotated. Patient has a positive logroll examination. Patient is able to wiggle toes plantarflex and dorsiflex ankle sensations intact light touch distally. Distal pulses palpable lower extremities warm well perfused. Compartments are soft and compressible. Patient is stable pelvis on compression examination. Secondary survey examination: No spine tenderness to palpation. Patient has normal range of motion no tenderness palpation of bilateral upper extremity joints with no deformities noted and no pain on palpation. Left lower extremity no deformities negative logroll left lower extremity has no pain along palpation along the left hip and femur. No tenderness to palpation on left lower extremity joints p atient able to wiggle toes plantarflex and dorsiflex ankle. Const: COMMON NORMALS: no acute distress and average body habitus HENMT: COMMON NORMALS: normocephalic and atraumatic HEAD & SCALP: normocephalic and atraumatic Resp: COMMON NORMALS: normal respiratory effort and No retractions Cardio: COMMON NORMALS: Peripheral pulses 2+ throughout PERIPHERAL PULSES: Peripheral pulses 2+ throughout Data Xray Ortho: My impression: X-rays of the right femur demonstrate a right subtrochanteric femur fracture transverse in nature with lateral cortical thickening consistent with an atypical femur fracture. X-rays of the left femur demonstrate possible subtle lateral cortical beaking but no evidence of fracture. A&P Assessment and plan (1) Subtrochanteric fracture of right femur: Plan N.p.o. at midnight Plan for surgical intervention tomorrow for a right trochanteric femur nail (long) Discontinue bisphosphonate Reviewed x-rays of the contralateral femur, no fracture and no pain at this point time continue for observation Internal medicine to admit as primary for medical management and medical optimization for surgical intervention tomorrow Pain control Hold anticoagulation tomorrow we will start DVT prophylaxis postoperatively MDM: Patient has a right atypical subtrochanteric femur fracture. At this point time would recommend surgical intervention of the long trochanteric femur nail. We will discontinue patient's bisphosphonates x-rays of the left femur show possible subtle lateral cortical wall thickening but there is no evidence of fracture and patient has no pain on examination and no history of any pain to the left side. At this point in time she will be medically optimized recommend surgical intervention given long bone fracture and recommend for earlier mobilization as well as pain control we will get her added onto the surgery schedule tomorrow. She understands the ins and outs procedure the risk benefits complications alternatives with surgery granddaughter is present at bedside. Risk of surgery include not limited to make a better make it worse, blood clot, heart attack, stroke, on the table, malunion, nonunion, infection, hardware complications. Understanding these risks and elects proceed with surgical intervention all questions answered at this time. Get her added on surgery tomorrow. Coding Level of Care Code Acute Code for Juliana Fwd Diagnoses Subtrochanteric fracture of right femur S72.21XA Time Spent (min) 45
--- NOTE | 2023-03-14 21:28 | P.HP_ITS ---
Providers/Chief Complaint Admitting Physician: Diogo Sanchez MD Primary Care Provider: Que Joyce MD Chief Complaint: fall, right hip pain History of Present Illness Venita Oconnell is a 72 year old female with a past medical history of hyperlipidemia, hypothyroidism, who presents [facility] for a fall, on her right hip with right hip pain. Patient tells me that this afternoon she was moving a piece of furniture, when it broke, and she slipped and fell and fell, hit her right hip on the ground, no head trauma, no loss of consciousness, no knee pain, no ankle pain, she does have chronic back pain, but not acutely worsening, currently she is in severe pain despite receiving 4 of morphine, pain is primarily in the right hip, having spasms, she denies a cardiovascular history, no history of smoking, no history of CAD, no history of COPD no history of strokes, no history of diabetes, no history of DVTs or PEs, no history of adverse reaction to anesthetic agents Review of Systems Card: Denies: chest pain Resp: Denies: dyspnea GI: Denies: abdominal pain : Denies: flank pain, difficulty voiding or dysuria Medications/Allergies Home Medications Medication Instructions Recorded Confirmed Last Taken Type donepezil 10 mg tablet 10 mg PO DAILY 12/06/21 01/12/23 Unknown History mupirocin 2 % topical ointment 1 applic topical BID #15 grams 12/24/21 01/12/23 Unknown Rx famciclovir 500 mg tablet 500 mg PO TID 7 days #21 tabs 02/08/22 01/12/23 Unknown Rx propranolol 20 mg tablet 10 mg PO ONCE 02/08/22 01/12/23 Unknown History gabapentin 300 mg capsule 300 mg PO BID #60 caps 02/18/22 01/12/23 Unknown Rx furosemide 20 mg tablet (Lasix) 20 mg PO DAILY edema #30 tabs 01/31/23 Unknown Rx Allergies Allergy/AdvReac Type Severity Reaction Status Date / Time No Known Allergies Allergy Verified 03/14/23 19:20 PFSH Acute PFSH: Medical History History of hyperlipidemia History of hypothyroidism Surgical History History of hysterectomy Family History Other Cancer Diabetes Social History Smoking and tobacco status: former smoker Alcohol intake: never Caregiver/support person: No Lives independently: Yes Household members: none Marital status: / Number of children: 1 service: No Current occupational status: retired Vitals/I&O/Wt Last Vital Signs Temp 98.0 F 03/14/23 19:12 Pulse 80 03/14/23 20:43 Resp 18 03/14/23 20:43 BP 167/92 03/14/23 20:43 Pulse Ox 97 03/14/23 20:43 O2 Del Method Room Air 03/14/23 20:43 O2 Flow Rate 2 03/14/23 19:21 Weight last 48 hrs Weight 72.575 kg Physical Exam Const: COMMON NORMALS: no acute distress and patient oriented x3 HENMT: COMMON NORMALS: normocephalic HEAD & SCALP: normocephalic Eye: COMMON NORMALS: Equal, round and reactive pupils present and EOMs intact bilaterally Neck/C-Spine: COMMON NORMALS: no JVD Lymph: LYMPHATIC: no lymphadenopathy noted Resp: COMMON NORMALS: normal respiratory effort, No retractions, No use of accessory muscles and clear to auscultation bilaterally AUSCULTATION: clear to auscultation bilaterally Cardio: COMMON NORMALS: no JVD, regular rate, regular rhythm, S1 normal heart sound present and S2 normal heart sound present RATE: regular rate RHYTHM: regular rhythm HEART SOUNDS: S1 normal heart sound present and S2 normal heart sound present GI: COMMON NORMALS: Normal to inspection, nondistended, normoactive bowel sounds present, Soft to palpation and non-tender PALPATION: Yes No hepatosplenomegaly present Extremity: COMMON NORMALS: no calf tenderness and no pedal edema Neuro: COMMON NORMALS: patient oriented x3, CN's II-XII intact bilaterally and moves all extremities OTHER: Severe right hip pain to palpation Psych: COMMON NORMALS: mental status grossly normal Urinary Catheter Management: Toribio: Cath Placed During This Visit: yes Urinary Catheter Date of Insertion: 03/14/23 Urinary Catheter Time of Insertion: 21:12 A&P Assessment and plan (1) Subtrochanteric fracture of right femur: Plan Right hip fracture -Pain control Dilaudid 1 mg IV push every 4 hours as needed -Zofran for nausea -SCDs for DVT prophylaxis, Lovenox currently on hold as there is plans of surgery tomorrow -IV fluids -N.p.o. at midnight -TSH, CBC, BMP, EKG series, chest x-ray -Full code Attestations Medical Necessity Statement*: Patient requires hospitalization, inpatient, greater than 2 midnights, for right hip pain with right hip fracture Diagnoses Subtrochanteric fracture of right femur S72.21XA
--- NOTE | 2023-03-14 21:28 | ECG_ITS ---
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 Measurements Intervals [place] Rate: 75 P: 83 CO: 161 QRS: 57 QRSD: 94 T: 74 QT: 396 QTc: 444 Interpretive Statements SINUS RHYTHM NONSPECIFIC ST & T-WAVE ABNORMALITY Compared to ECG 03/14/2023 20:32:36 No significant changes Electronically Signed On 03-15-2023 8:27:06 CDT by Benji Barnhart M.D. [email or web address] medical [id number]
[2023-03-14 21:30] VITALS: BP 170/79; PULSE 74; RESP 18; TEMP 36.7; O2SAT 96
[2023-03-14] MEDS: flu vacc pf 2023-24 (6 mos+) 60 MCG IM (22:05)
[2023-03-14] MEDS: pantoprazole 40 mg SDV IVP (22:08)
[2023-03-14] MEDS: dextrose 5%-sod chloride 0.9% 1,000 ML 100 ML IV (22:14)
[2023-03-14 22:21] LABS: Add Urine Microscopic? NO; Charge for UA Resulting for Rev
[2023-03-14 22:30] LABS: Basophils # 0.1 10^3/uL (0.0-0.1); Basophils % 0.6 %; Eosinophils % 0.2 %; Hematocrit 40.3 % (36-47); Lymphocytes # 1.4 10^3/uL (0.8-4.8); Lymphocytes % 13.5 %; Mean Corpuscular HGB Conc 32.5 g/dL (30-55); Mean Corpuscular Hemoglobin 28.7 pg (27-33); Mean Corpuscular Volume 88.4 fl (85-98); Monocytes # 0.6 10^3/uL (0.2-0.9); Monocytes % 5.8 %; Neutrophils # 8.38 10^3/uL (1.8-7.7); Neutrophils % 79.6 %; Nucleated Red Blood Cells % 0 %; Platelet Count 267 10^3/cmm (157-399); Red Blood Count 4.56 10^6/uL (3.85-5.65); Red Cell Distribution Width 13.4 % (12.1-15.1); White Blood Count 10.52 10^3/uL (3.29-11.43)
[2023-03-14 22:31] LABS: Bilirubin Urine Neg (Negative); Blood Urine Neg (Negative); Glucose Urine UA Norm (Normal); Ketones Urine 1+ (Negative); Leukocyte Esterase Urine Negative (Negative); Nitrate Urine Negative (Negative); Protein Urine Neg (Negative); Specific Gravity, Urine 1.015 (1.005-1.030); Sulfosalicylic Acid Urine Negative (Negative); Urine Appearance Clear (CLEAR); Urine Color Yellow (Yellow); Urobilinogen Urine Norm (Negative); pH Urine 8 (5-7)
[2023-03-14 22:46] LABS: INR 0.96 (0.8-1.2)
[2023-03-14 22:53] LABS: Troponin(5th) Baseline 11 ng/L (0-10)
[2023-03-14 23:00] LABS: Alanine Aminotransferase 13 U/L (0-33); Albumin Level 4.1 g/dL (3.5-5.2); Alkaline Phosphatase 73 U/L (35-105); Anion Gap 12.5 (5-19); Aspartate Amino Transferase 22 U/L (0-32); Blood Urea Nitrogen 11 mg/dL (8-23); Calcium 8.9 mg/dL (8.5-10.5); Carbon Dioxide 29 mmol/L (22-29); Chloride 99 mmol/L (98-107); Chol HDL Ratio 2.43 mg/dL (0.0-4.40); Cholesterol 204 mg/dL (0-200); Creatinine Clr Calc Pharmacy 58.4232; Globulin 2.2 g/dL (1.3-4.6); Glucose 145 mg/dL (65-115); HDL Cholesterol 84 mg/dL (60-100); LDL Cholesterol Calculated 106 mg/dL (50-129); LDL HDL Ratio 1.26 RATIO (0.00-3.22); Osmolality Calculated 286 mOsm/kg (285-295); Potassium 3.5 mmol/L (3.5-5.1); Sodium 137 mmol/L (136-145); Total Bilirubin 0.5 mg/dL (0.15-1.2); Total Protein 6.3 g/dL (6.6-8.7); Triglycerides 69 mg/dL (0-150)
[2023-03-14 23:04] LABS: Estmated Average Glucose 126
[2023-03-14 23:26] LABS: Thyroid Stimulating Hormone 30.45 uIU/mL (0.27-4.20)
[2023-03-15] VITALS (16 sets, daily range): BP systolic 99–151; BP diastolic 54–79; PULSE 72–108; RESP 14–20; TEMP 36.2–36.8; O2SAT 94–97
--- NOTE | 2023-03-15 | XR_ITS ---
WS: [id number] EXAMINATION: XR femur RT min 2V* [id number] REASON FOR EXAM: right hip orif FINDINGS: C-arm fluoroscopy provided for hip pinning procedure with total fluoroscopy time 351.1 seco nds ORDER DATE: 03/15/2023 12:00 AM
[2023-03-15 01:07] LABS: Troponin 5 2HR 11.55 ng/L (0-10)
[2023-03-15 01:08] LABS: Troponin 5 2HR Delta 0.55 ABS# (0-10)
[2023-03-15] MEDS: HYDROmorphone 1 mg/mL INJ 1 mL IVP ×2 (03:09→08:25)
--- NOTE | 2023-03-15 03:26 | ECG_ITS ---
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 Measurements Intervals [place] Rate: 72 P: 70 [place]: 174 QRS: 55 QRSD: 89 T: 63 QT: 397 QTc: 435 Interpretive Statements SINUS RHYTHM NONSPECIFIC ST & T-WAVE ABNORMALITY Compared to ECG 03/14/2023 21:58:16 No significant changes Electronically Signed On 03-15-2023 8:27:32 CDT by Benji Barnhart M.D. [email or web address] [id number]
[2023-03-15 04:18] LABS: Troponin 5 6HR 10.14 ng/L (0-10)
[2023-03-15 04:21] LABS: Troponin 5 6HR Delta -0.86 ng/L (0-12)
[2023-03-15 07:24] LABS: Free T4 Free Thyroxine 0.31 ng/dL (0.82-1.77); T3 Free 0.9 PG/ML (2.0-4.4)
[2023-03-15] MEDS: dextrose 5%-sod chloride 0.9% 1,000 ML 100 ML IV ×2 (08:26→21:30)
--- NOTE | 2023-03-15 08:42 | PC.PHAR ---
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
--- NOTE | 2023-03-15 10:18 | PC.CHAP ---
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 bending shed worker visit [] Patient/Family/Request visit [] Outpatient visit [] Follow-up visit [] Physician referral [] Code/Alert [x] Routine visit [] Staff referral [] Actively dying [] Patient sleeping [] Family support [] [] Out of room [] Palliative care [] [] Receiving care in room [] Pre-surgical visit [] Trauma [] Long length of stay [] ICU visit [] Other: Relational/Emotional Strength [x] Patient feels connected with others/family/visitors/staff [] Distress [] Loneliness/isolation [] Abandonment Spirituality of Patient [] Person of Maureen [] Attends Church of their Maureen [x] Believes in Prayer [] Reads Bible or Synagogue materials [] There are Spiritual issues to be addressed Brush Hand Interventions [x] Prayer [x] Active listening [] Non-anxious presence [] Spiritual/emotional support [] Crisis/trauma care [] Spiritual counseling [] Bereavement support [] Provided bereavement packet [] Provided Bible/devotional materials [] Provided toy/stuffed animal, coloring book to patient or family member [] Provided Communion [] Anointing/Beverly [] Salvation [] Completed spiritual assessment [] Other: Impact on Illness or Injury [] Angry [] Fearful [] Anxious [] Often cries [] Exhaustion [] Unable to work [] Unable to attend amish [] Unable to walk/stand [] Unable to read [] Unable to drive [] Unable to eat/drink [] Unable to sleep [] Unable to be with family [] Patient intubated [] Other: Summary Time spent with patient 10 min
--- NOTE | 2023-03-15 10:46 | PM.PN ---
Subjective Subjective: Patient is going for surgery around noon No history of hypothyroidism in the past Lives alone, will do PT evaluation after surgery Vitals/I&O/Wt Last Vital Signs Temp 98.0 F 03/15/23 07:41 Pulse 78 03/15/23 07:41 Resp 17 03/15/23 08:25 BP 146/66 03/15/23 07:41 Pulse Ox 97 03/15/23 07:41 O2 Del Method Room Air 03/15/23 07:41 O2 Flow Rate 2 03/14/23 19:21 03/14/23 03/15/23 03/15/23 22:59 06:59 14:59 Intake Total 500 / 500 0 / 500 950 / 950 Output Total 550 / 550 Balance 500 / 500 -550 / -50 950 / 950 Weight last 48 hrs Weight 72.575 kg Physical Exam Narrative: Euvolemic Laying supine Awake and alert GCS 15 Pleasant and cooperative Currently on room air S1, S2 Urinary Catheter Management: Toribio: Cath Placed During This Visit: yes Reason for Continuing Indwelling Catheter: Required Immobilization for Trauma or Surgery or Anesthesia Urinary Catheter Date of Insertion: 03/14/23 Urinary Catheter Time of Insertion: 21:12 Data 03/14/23 22:05 03/14/23 22:05 A&P Assessment and plan (1) Subtrochanteric fracture of right femur: (2) Closed fracture of right hip: (3) Avulsion fracture of medial malleolus of right tibia: Qualifiers: Encounter type: initial encounter Fracture type: closed Qualified Code(s): S82.51XA - Displaced fracture of medial malleolus of right tibia, initial encounter for closed fracture (4) Hypothyroidism: Plan Acute hip fracture Going for surgery today New diagnosis of hypothyroidism We will start low-dose levothyroxine after surgery Patient not complaining constipation, symptoms of hypothyroidism Lives alone, will request PT after surgery Full code Start diet after surgery She is euvolemic no need of Lasix Attestations Medical Necessity Statement*: Continue medical management Diagnoses Subtrochanteric fracture of right femur S72.21XA Closed fracture of right hip S72.001A Avulsion fracture of medial malleolus of right tibia S82.51XA Encounter type: initial encounter Fracture type: closed Hypothyroidism E03.9
[2023-03-15] MEDS: acetaminophen 1,000 MG/100 ML PIGGYBACK 400 MG IV ×2 (12:55→13:02)
--- NOTE | 2023-03-15 12:59 | P.HPUD_ITS ---
Surgery/Procedure H&P Update DATE OF PROCEDURE: March 15, 2023 DATE H&P PERFORMED: 03/14/23 H&P UPDATE INFORMATION: I have reviewed H&P completed within last 30 days, I have examined patient prior to procedure and No changes to prior documentation CHANGES TO PREVIOUS DOCUMENTATION: None. Patient has bisphosphonate fracture discontinue bisphosphonates. Plan to proceed with right subtrochanteric femur fracture open reduction internal f ixation with cephalomedullary nail long. PREOP DIAGNOSIS: Right subtrochanteric femur fracture PRIMARY INDICATION FOR PROCEDURE: Right subtrochanteric femur fracture PLANNED PROCEDURE: Operation Date: 03/15/23 12:50 Proposed Procedures p Trochanteric Femoral Nail(Right) - Rc Ramachandran DO
[2023-03-15] MEDS: ketorolac 30 mg/mL INJ IVP (13:03)
--- NOTE | 2023-03-15 13:12 | ANES.PREANE2 ---
Pre-Anesthetic Assessment Height/Weight: Height 1.57 m Weight 72.575 kg Temp Pulse Resp BP Pulse Ox O2 Del Method O2 Flow Rate 97.8 F 83 18 151/72 96 Room Air 2 03/15/23 11:19 03/15/23 11:19 03/15/23 11:19 03/15/23 11:19 03/15/23 11:19 03/15/23 11:19 03/14/23 19:21 Preop Diagnosis: Right subtrochanteric femur fracture Operation Date: 03/15/23 12:50 Proposed Procedures p Trochanteric Femoral Nail(Right) - Rc Madie, DO Familial anesthetic complications: None Was Beta Anthony taken within 24 hours: N/A Was Clonidine taken within 24 hours: N/A Last intake: Intake Last Liquid Date 03/14/23 Last Liquid Time 23:00 Last Solid Date 03/14/23 Last Solid Time 09:00 Social No alcohol and No tobacco Exam alert, oriented x 3, clear to auscultation bilaterally and regular rate & rhythm Airway Mallampati: Class II Dentition: false Metabolic Hyperlipidemia and Thyroid Disease [facility] [place] osteoporosis Anesthetic Plan ASA status: 2 Anesthesia: General Risk of > 500 ml blood loss (7ml/kg in children): No Medications/Allergies Home Medications Medication Instructions Recorded Confirmed Last Taken Type donepezil 10 mg tablet 10 mg PO DAILY 12/06/21 01/12/23 Unknown History mupirocin 2 % topical ointment 1 applic topical BID #15 grams 12/24/21 01/12/23 Unknown Rx famciclovir 500 mg tablet 500 mg PO TID 7 days #21 tabs 02/08/22 01/12/23 Unknown Rx propranolol 20 mg tablet 10 mg PO ONCE 02/08/22 01/12/23 Unknown History gabapentin 300 mg capsule 300 mg PO BID #60 caps 02/18/22 01/12/23 Unknown Rx furosemide 20 mg tablet (Lasix) 20 mg PO DAILY edema #30 tabs 01/31/23 Unknown Rx Allergies Allergy/AdvReac Type Severity Reaction Status Date / Time No Known Allergies Allergy Verified 03/14/23 19:20 Current Medications Generic Name Dose Route Start Last Admin Trade Name Freq PRN Reason Stop Dose Admin Donepezil HCl 10 mg 03/15/23 09:00 03/15/23 09:51 Donepezil 5 Mg Tablet PO Not Given DAILY KATHY Gabapentin 300 mg 03/15/23 09:00 03/15/23 09:51 Gabapentin 300 Mg Capsule PO Not Given BID KATHY Hydromorphone HCl 1 mg 03/14/23 21:30 03/15/23 08:25 Hydromorphone 1 Mg/Ml Inj 1 Ml IVP 1 mg Q4H PRN Administration pain Dextrose/Sodium Chloride 1,000 mls @ 100 mls/hr 03/14/23 21:30 03/15/23 08:26 Dextrose 5%-Sod Chloride 0.9% IV 100 mls/hr .Q10H KATHY Administration Acetaminophen 1,000 mg in 100 mls @ 400 mls/hr 03/15/23 13:00 03/15/23 13:11 Acetaminophen IV 03/15/23 13:14 Infused DITCH CLEANER ONE Infusion Pantoprazole Sodium 40 mg 03/14/23 21:30 03/14/23 22:08 Pantoprazole 40 Mg Sdv IVP 40 mg Q24H KATHY Administration PFSH Anesthesia Medical History History of hyperlipidemia History of hypothyroidism Surgical History History of hysterectomy Family History Other Cancer Diabetes Social History Smoking and tobacco status: former smoker Alcohol intake: never Caregiver/support person: No Lives independently: Yes Household members: none Marital status: / Number of children: 1 service: No Current occupational status: retired Data Anesthesia 03/14/23 22:05 03/14/23 22:05 Short CBC 03/14/23 Range/Units 22:05 WBC 10.52 (3.29-11.43) 10^3/uL Hgb 13.10 (11.27-16.99) g/dL Hct 40.3 (36-47) % MCV 88.4 (85-98) fl Plt Count 267 (157-399) 10^3/cmm Neut % (Auto) 79.6 % Neut # (Auto) 8.38 H (1.8-7.7) 10^3/uL BMP 03/14/23 22:05 Sodium 137 Potassium 3.5 Chloride 99 Carbon Dioxide 29 BUN 11 Creatinine 0.6 Glucose 145 H Calcium 8.9 Cardiac Enzymes 03/14/23 03/15/23 03/15/23 Range/Units 22:05 00:00 03:33 Troponin T Baseline 11 H (0-10) ng/L Troponin T 120 Minute 11.55 H (0-10) ng/L Delta Troponin T 0.55 (0-10) ABS# Troponin T Hi Sens 6Hr 10.14 H (0-10) ng/L Troponin T Hi Sens 6Hr Delta -0.86 L (0-12) ng/L Liver Function 03/14/23 Range/Units 22:05 Total Bilirubin 0.5 (0.15-1.2) mg/dL AST 22 (0-32) U/L ALT 13 (0-33) U/L Alkaline Phosphatase 73 (35-105) U/L Albumin 4.1 (3.5-5.2) g/dL Urine 03/14/23 Range/Units 22:00 Urine Color Yellow (Yellow) Urine Appearance Clear (CLEAR) Urine pH 8 H (5-7) Ur Specific [place] 1.015 (1.005-1.030) Urine Protein Neg (Negative) Urine Glucose (UA) Norm (Normal) Urine Ketones 1+ H (Negative) Urine Nitrate Negative (Negative) Urine Bilirubin Neg (Negative) Ur Leukocyte Esterase Negative (Negative) Blood Bank 03/14/23 22:05 Blood Type O Positive Rho(D) Type Positive Antibody Screen Negative Coags 03/14/23 22:05 PT 13.00 INR 0.96 Cardiac Studies: Echocardiogram 02/21/23
[2023-03-15] MEDS: sodium chloride 0.9% 1,000 ML 30 ML IV (13:17)
[2023-03-15] MEDS: ceFAZolin 2,000 MG in sodium chloride 0.9% (plus) 50 ML 100 MG IV ×2 (14:31→22:38)
[2023-03-15] MEDS: tranexamic acid 1,000 mg/10mL SDV 1000 MG IV (15:05)
[2023-03-15] MEDS: vancomycin 1,000 MG SDV 1000 MG XX (15:24)
--- NOTE | 2023-03-15 17:50 | P.OP_ITS ---
Operative Report Date of procedure: March 15, 2023 Surgeon: Rc Ramachandran DO Procedure: Preop Diagnosis ? Right Atypical BIsphosphanate Subtrochanteric femur fracture ? Procedure: Post-op diagnosis: Same Procedure done: Open reduction internal fixation RIght subtrochanteric femur fracture with cephalomedullary nail and grafting Implants: Akbar right long gamma nail 11 mm x 340 mm 125 degree Lag screw 10.5 mm x 90 mm Distal interlocking screws 42.5 mm, 47.5mm [place] DBM with cancellous chips 3 cc Surgeon: Rc Ramachandran DO Estimated blood loss: 250cc IV fluids: 1500mL Urine output: See anesthesia record Complications: None Condition: stable Disposition: floor Brief History: Patient is a pleasant 72-year-old female sustained a ground-level fall injuring her right femur.? She is brought to theED x-rays and found to have right subtrochanteric femur fracture.? She was admitted by the hospitalist team and she was medically optimized for surgical intervention.? Orthopedic surgery team was consulted.? Patient was then seen and evaluated by myself and showed her findings consistent with her preoperative diagnosis.?? Patient was found to have been on bisphosphonates for years and she has a short transverse fracture of the right subtrochanteric region consistent with an atypical bisphosphonate fracture with lateral cortical wall thickening. We did x-ray the other femur she has been asymptomatic there is mild thickening here but no significant beaking and no pain or fracture. We talked about the risks of these fractures as there is inherent increased risks of not needing with these. Patient was subsequently medically optimized by the hospitalist team and cleared for surgical intervention.? I detailed discussion with patient about her treatment options as far as nonoperative and operative intervention.? She understands the risk benefits complications alternatives to surgical and nonsurgical treatment options.? Ultimately recommended surgical intervention for pain control as well as early mobilization.? Patient understands and agrees with current plan.? All questions answered at this time.? Consent was obtained. Procedure: Patient was seen evaluated in the preoperative holding area.? Consent was reviewed with patient.? Correct extremity was then marked.? Patient was then seen evaluated by anesthesia once cleared for surgery was taken back to the operative suite.? She underwent anesthesia per the anesthesia department on the hospital bed and then once appropriately anesthetized and then transported onto the [place] table.? Once on the [place] table she was appropriately secured and all bony prominences were well-padded.? This point time patient received appropriate preoperative antibiotics.? Final timeout performed.? Large fluoroscopic C arm was then brought into the operative suite and visualized fracture.? Attempts were made to gross traction and manual reduction utilizing the [place] bed however these were unsuccessful for anatomic reduction with plan for requiring open reduction and internal fixation.? This point time the right lower extremity was then prepped and draped in standard orthopedic fashion. X-ray was then brought in marker was made to andria out the site of the fracture.? I then placed a longitudinal incision over the fracture site sharp scalpel incision through skin and subcutaneous tissue.? I utilized a Angel elevator to mobilize over the IT band.? This was split longitudinally.? I utilized electrocautery to maintain exact hemostasis.? Next I encountered the vastus lateralis.? This was just split longitudinally with its fibers utilizing a blunt Angel elevator.? I next encountered fracture hematoma this was completely evacuated and identified at the fracture fragments.? I then utilized a Bhakti clamp and was able to achieve a satisfactory reduction with alternating slight traction as well as altering rotation and the reduction the Bhakti clamp was tightened in my cortices were aligned anatomically. This was visible with my open fracture visualization. Reduction was satisfactory aligning the medial and lateral cortex which had appropriate bony contact. ?I was satisfied with my reduction on multiple orthogonal images and then proceeded with my cephalomedullary nail.? I made a standard 3 cm incision proximal to the greater trochanter.? I then made incision through skin and subcutaneous tissue bluntly split the fascia directly down to the greater trochanter.? I inserted my guidepin and made sure I was in center center position of the greater trochanter at the tip of the greater trochanter.? This is impacted into place confirmed on lateral images to be in appropriate position and then advanced to the level of the lesser trochanter.? I then inserted my o pening reamer.? And then passed my ball-tipped guidewire distally to appropriate depth.? This was confirmed to be intramedullary and I maintain my reduction throughout the case.? Ball tip was set right at the appropriate level at the level of the superior pole of the patella.? This was confirmed to be in center of the canal on the lateral film as well.? This was then subsequently measured? 340mm. I then sequentially reamed the canal up to a size 13 which had excellent chatter.? Reduction was maintained exactly throughout the entire reaming process. At this point time I selected 11 mm x 340 mm 125 degree long left gamma nail, then loaded my nail on the targeter and this was gently impacted into place appropriate depth.? This point time I looked distally at the tip of the nail in both AP and lateral confirming center center position and no anterior cortex perforation.? At this point time I then utilized bilateral previously made incision for my lag screw.? My lag screw guide sleeve was then inserted directly onto bone I then advanced my guidewire to a center center position into the femoral head with an excellent tip to apex distance this was measured to be 90 mm.? I then reamed op ened in place 10.5 mm x 90 mm lag screw by hand to appropriate tip to apex distance which had excellent fixation.? At this point time the setscrew was then subsequently placed and locked in the device.? Once this was then completed we then proceeded with placement of our distal interlocking screws.? We utilized freehand perfect alatna technique.? We then subsequently made small incisions blunt dissection directly onto bone inserted the drill bit utilizing perfect alatna technique drilled subsequently measured and placed 2 distal interlocking screws to appropriate depth and had excellent fixation.? This completed her construct.? The outer jig was subsequently removed.? reduction clamps were removed and final x-rays were taken which showed stable reduction of subtrochanteric femur fracture and stable fixation.? Wounds were then thoroughly irrigated with normal saline. Given the increased risks of nonunion with these fractures I subsequently placed graft of [place] DBM with cancellous chips around the fracture site to encourage healing. Vancomycin powder was placed within the incision sites. Incisions were then closed in layered fashion of deep 0 Vicryl suture and strata fix for fascia deep 0vicryl for subcutaneous tissue 2-0 Vicryl suture and janett.? Silverlon dressings were then applied to the incision.? Patient was then awakened from anesthesia she was then transported from the [place] bed onto the hospital bed in stable condition taken to PACU in stable condition. Disposition: Patient tolerated procedure without complications.? She is taken back in stable condition.? She will return to the floor.? She received appropriate discharge instruction as well as pain medication and DVT prophylaxis.?? She will be given appropriate instructions as far as her PWB 30-50%.? We will see her back in 2 weeks for repeat evaluation and x-rays and plan for staple removal.? She will receive appropriate PT/OT as well as perioperative antibiotics.? Patient understands agrees with current plan.? All questions answered.? We will see her in the office in 2 weeks.
--- NOTE | 2023-03-15 17:51 | W.PM.BPON ---
Documented by User: JUANA Kimbrough 03/15/23 17:54 Date of procedure: [March 15, 2023] Surgeon name: [Dr. Madie GO] Program Manager(s) name(s): [n/a] Procedure(s) performed: [right long trochanteric femur nail] Description of findings: [Right subtrochanteric femur fracture] Estimated blood loss: [250 ml] Specimen(s) removed: [n/a] Post-operative diagnosis: [Right subtrochanteric femur fracture] Documented by User: Rc Ramachandran DO 03/15/23 20:03 Date of procedure: [March 15, 2023] Surgeon name: [Dr. Madie GO] Program Manager(s) name(s): [n/a] Procedure(s) performed: [right subtrochanteric femur fracture open reduction internal fixation with cephalomedullary nail ] Description of findings: [Right subtrochanteric femur fracture] Estimated blood loss: [250 ml] Specimen(s) removed: [n/a] Post-operative diagnosis: [Right subtrochanteric femur fracture]
--- NOTE | 2023-03-15 17:55 | XRR_ITS ---
PROCEDURE INFORMATION: Exam: XR Right Hip Exam date and time: 03/15/2023 6:03 PM Age: 72 years old Clinical indication: Device placement; Prior surgery; Surgery date: Post-operative (0-2 days); Surgery type: Gamma nail right; Additional info: Post-op troch nail imaging needed TECHNIQUE: Imaging protocol: Radiologic exam of the right hip. Views: 1 view hip with pelvis when performed. COMPARISON: CR (PELVIS, ) 03/14/2023 7:52 PM FINDINGS: Bones/joints: Status post ORIF of proximal right femur fracture. Soft tissues: Postop changes of the soft tissues. XR/XR hip RT 2-3V wo/w pel* [id number] IMPRESSION: Status post ORIF of proximal right femur fracture.
--- NOTE | 2023-03-15 17:55 | PM.PACU ---
PACU note Narrative: Patient is a 72-year-old female that just underwent a right trochanteric femoral nail placement due to Right subtrochanteric femur fracture. pt transferred to PACU in stable condition. Dressing is dry. pt is awake and alert. pt can wiggle toes and plantarflex and dorsiflex foot. pt able to perform straight leg raise, Femoral nerve intact. Distal pulses are palpable toes are warm and well-perfused. Cap refill is normal and under 2 seconds. Sensation to foot is intact. Pain is controlled. Exam: awake Disposition: admitted
[2023-03-15] MEDS: fentaNYL 50 mcg/mL INJ 2mL 100 MCG (18:18)
--- NOTE | 2023-03-15 18:25 | ANE.PACU2 ---
Inpatient post-anesthesia follow up: Airway intact: Yes Vital signs: Temperature 98.2 F Pulse Rate 96 Respiratory Rate 17 Blood Pressure 112/60 Pulse Oximetry 96 Oxygen Delivery Me thod Nasal Cannula Oxygen Flow Rate 2 Fraction of Inspir ed Oxygen Hydration adequate: Yes Nausea and vomiting: No Pain level: 1 Mental status: Baseline
[2023-03-15] MEDS: pantoprazole 40 mg SDV IVP (20:31)
[2023-03-15] MEDS: chlorhexidine gluconate 0.12% Btl 473 mL 30 ML MUCOUS MEM (20:34)
[2023-03-15] MEDS: enoxaparin 40 mg/0.4 mL Syringe SUBCUT (20:35)
[2023-03-16] VITALS (13 sets, daily range): BP systolic 91–124; BP diastolic 45–71; PULSE 75–116; RESP 16–19; TEMP 36.6–37.7; O2SAT 90–96
[2023-03-16] MEDS: HYDROmorphone 1 mg/mL INJ 1 mL 0.5 MG IVP (03:42)
[2023-03-16 05:40] LABS: Basophils % 0.3 %; Hematocrit 27.8 % (36-47); Lymphocytes # 1.1 10^3/uL (0.8-4.8); Lymphocytes % 11.8 %; Mean Corpuscular HGB Conc 31.7 g/dL (30-55); Mean Corpuscular Hemoglobin 29.5 pg (27-33); Mean Corpuscular Volume 93.3 fl (85-98); Mean Platelet Volume 12.6 fL (7.4-10.4); Monocytes # 0.9 10^3/uL (0.2-0.9); Monocytes % 9.4 %; Neutrophils # 7.58 10^3/uL (1.8-7.7); Neutrophils % 78.2 %; Nucleated Red Blood Cells % 0 %; Platelet Count 212 10^3/cmm (157-399); Red Blood Count 2.98 10^6/uL (3.85-5.65); Red Cell Distribution Width 13.8 % (12.1-15.1); White Blood Count 9.69 10^3/uL (3.29-11.43)
[2023-03-16 06:01] LABS: Blood Urea Nitrogen 6 mg/dL (8-23); Calcium 7.6 mg/dL (8.5-10.5); Carbon Dioxide 23 mmol/L (22-29); Chloride 105 mmol/L (98-107); Creatinine Clr Calc Pharmacy 58.4232; Glucose 174 mg/dL (65-115); Osmolality Calculated 290 mOsm/kg (285-295); Sodium 139 mmol/L (136-145)
[2023-03-16 06:02] LABS: Anion Gap 14.4 (5-19); Potassium 3.4 mmol/L (3.5-5.1)
[2023-03-16] MEDS: levothyroxine 25 mcg Tablet PO (06:23)
[2023-03-16] MEDS: oxyCODONE 5 mg IR Tab/Cap PO ×2 (06:41→17:39)
--- NOTE | 2023-03-16 08:45 | PM.DCS ---
Discharge Providers Date of Admission: 03/14/23 20:20 Date of Discharge: March 16, 2023 Attending Provider at Admission: Diogo Sanchez MD Attending Provider at Discharge: Isatu Giang MD Primary Care Provider: Que Joyce MD Diagnoses at Discharge Discharge Diagnosis (1) Subtrochanteric fracture of right femur: Status: Acute (2) Closed fracture of right hip: Status: Acute (3) Avulsion fracture of medial malleolus of right tibia: Status: Acute Qualifiers: Encounter type: initial encounter Fracture type: closed Qualified Code(s): S82.51XA - Displaced fracture of medial malleolus of right tibia, initial encounter for closed fracture (4) Hypothyroidism: Status: Acute Reason for Visit Reason for Visit: fall, right hip pain Hospital Course Hospital Course 72 female who was admitted to the hospital for management evaluation of right subtrochanteric femur fracture, Dr. Marcos was consulted, status post intervention on 03/15, patient did well with physical therapy, H&H was repeated before her discharge, her propranolol was discontinued that probably would explain her rebound tachycardia, she is not in significant pain, she must go home, bedside commode and a walker has been arranged. Of note, she was diagnosed with hypothyroidism Free T4 is low and TSH is 30 he has been started on low-dose levothyroxine, she will need up titration of her medication I will give her close follow-up with PCP Physical Exam Narrative: Pleasant and cooperative GCS 15 Doing well on room air Abdomen soft S1, S2 Urinary Catheter Management: Toribio: Cath Placed During This Visit: yes Reason for Continuing Indwelling Catheter: Perioperative Use in Selected Surgeries Urinary Catheter Date of Insertion: 03/14/23 Urinary Catheter Time of Insertion: 21:12 Discharge Data Studies Completed and Pending Completed Studies During Hospitalization Category Date Time Status CXRP [XR chest 1V portable [id number]] Stat Exams 03/14/23 19:37 Completed XR femur LT min 2V* [id number] Stat Exams 03/14/23 19:59 Completed XR hip RT 2-3V wo/w pel* [id number] Routine Exams 03/15/23 17:55 Completed XR hip RT 2-3V wo/w pel* [id number] Stat Exams 03/14/23 19:25 Completed XR knee RT 3V* [id number] Stat Exams 03/14/23 19:25 Completed Pending at discharge Category Date Time Status C-arm Fluoroscopy [id number] Routine Exams 03/15/23 21:12 Taken XR femur RT min 2V* [id number] Routine Exams 03/15/23 Taken Hemoglobin and Hematocrit Stat Lab 03/16/23 08:44 Ordered Radiology Impressions Knee X-Ray 03/14/23 19:25 IMPRESSION: No acute findings. Chest X-Ray 03/14/23 19:37 IMPRESSION: Subtle asymmetric left basal opacities which may be on the basis of atelectasis given suboptimal lung expansion. Superimposed aspiration in the setting of trauma possible. Hip/Pelvis X-Ray 03/15/23 17:55 IMPRESSION: Status post ORIF of proximal right femur fracture. Laboratory Results WBC 9.69 10^3/uL (3.29-11.43) 03/16/23 05:12 RBC 2.98 10^6/uL (3.85-5.65) L 03/16/23 05:12 Hgb 8.80 g/dL (11.27-16.99) L 03/16/23 05:12 Hct 27.8 % (36-47) L 03/16/23 05:12 MCV 93.3 fl (85-98) 03/16/23 05:12 MCH 29.5 pg (27-33) 03/16/23 05:12 MCHC 31.7 g/dL (30-55) 03/16/23 05:12 RDW 13.8 % (12.1-15.1) 03/16/23 05:12 Plt Count 212 10^3/cmm (157-399) 03/16/23 05:12 MPV 12.6 fL (7.4-10.4) H 03/16/23 05:12 Neut % (Auto) 78.2 % 03/16/23 05:12 Lymph % (Auto) 11.8 % 03/16/23 05:12 [place] % (Auto) 9.4 % 03/16/23 05:12 Eos % (Auto) 0.0 % 03/16/23 05:12 Baso % (Auto) 0.3 % 03/16/23 05:12 Neut # (Auto) 7.58 10^3/uL (1.8-7.7) 03/16/23 05:12 Lymph # (Auto) 1.1 10^3/uL (0.8-4.8) 03/16/23 05:12 [place] # (Auto) 0.9 10^3/uL (0.2-0.9) 03/16/23 05:12 Eos # (Auto) 0.0 10^3/uL (0.0-0.8) 03/16/23 05:12 Baso # (Auto) 0.0 10^3/uL (0.0-0.1) 03/16/23 05:12 Nucleated RBC % (auto) 0 % 03/16/23 05:12 Nucleated RBCs # 0.0 /100WBC 03/16/23 05:12 PT 13.00 SECONDS (12.1-14.9) 03/14/23 22:05 INR 0.96 (0.8-1.2) 03/14/23 22:05 Sodium 139 mmol/L (136-145) 03/16/23 05:12 Potassium 3.4 mmol/L (3.5-5.1) L 03/16/23 05:12 Chloride 105 mmol/L (98-107) 03/16/23 05:12 Carbon Dioxide 23 mmol/L (22-29) 03/16/23 05:12 Anion Gap 14.4 (5-19) 03/16/23 05:12 BUN 6 mg/dL (8-23) L 03/16/23 05:12 Creatinine 0.6 mg/dL (0.5-0.9) 03/16/23 05:12 GFR Calculation Not Reportable 03/16/23 05:12 Glucose 174 mg/dL (65-115) H 03/16/23 05:12 Estimat Average Glucose 126 03/14/23 22:05 Hemoglobin A1c 6.0 % (4.0-6.0) 03/14/23 22:05 Calculated Osmolality 290 mOsm/kg (285-295) 03/16/23 05:12 Calcium 7.6 mg/dL (8.5-10.5) L 03/16/23 05:12 Total Bilirubin 0.5 mg/dL (0.15-1.2) 03/14/23 22:05 AST 22 U/L (0-32) 03/14/23 22:05 ALT 13 U/L (0-33) 03/14/23 22:05 Alkaline Phosphatase 73 U/L (35-105) 03/14/23 22:05 Troponin T Baseline 11 ng/L (0-10) H 03/14/23 22:05 Troponin T 120 Minute 11.55 ng/L (0-10) H 03/15/23 00:00 Delta Troponin T 0.55 ABS# (0-10) 03/15/23 00:00 Troponin T Hi Sens 6Hr 10.14 ng/L (0-10) H 03/15/23 03:33 Troponin T Hi Sens 6Hr Delta -0.86 ng/L (0-12) L 03/15/23 03:33 Total Protein 6.3 g/dL (6.6-8.7) L 03/14/23 22:05 Albumin 4.1 g/dL (3.5-5.2) 03/14/23 22:05 Globulin 2.2 g/dL (1.3-4.6) 03/14/23 22:05 Triglycerides 69 mg/dL (0-150) 03/14/23 22:05 Cholesterol 204 mg/dL (0-200) H 03/14/23 22:05 LDL Cholesterol, Calc 106 mg/dL (50-129) 03/14/23 22:05 HDL Cholesterol 84 mg/dL (60-100) 03/14/23 22:05 LDL/HDL Ratio 1.26 RATIO (0.00-3.22) 03/14/23 22:05 Cholesterol/HDL Ratio 2.43 mg/dL (0.0-4.40) 03/14/23 22:05 TSH 30.45 uIU/mL (0.27-4.20) H 03/14/23 22:05 Free T4 0.31 ng/dL (0.82-1.77) L 03/15/23 03:33 Free T3 0.9 PG/ML (2.0-4.4) L 03/15/23 03:33 Urine Color Yellow (Yellow) 03/14/23 22:00 Urine Appearance Clear (CLEAR) 03/14/23 22:00 Urine pH 8 (5-7) H 03/14/23 22:00 Ur Specific Wann 1.015 (1.005-1.030) 03/14/23 22:00 Urine Protein Neg (Negative) 03/14/23 22:00 Urine Glucose (UA) Norm (Normal) 03/14/23 22:00 Urine Ketones 1+ (Negative) H 03/14/23 22:00 Urine Blood Neg (Negative) 03/14/23 22:00 Urine Nitrate Negative (Negative) 03/14/23 22:00 Urine Bilirubin Neg (Negative) 03/14/23 22:00 Prot Sulfosalicylic Acd Negative (Negative) 03/14/23 22:00 Urine Urobilinogen Norm mg/dL (Negative) 03/14/23 22:00 Ur Leukocyte Esterase Negative (Negative) 03/14/23 22:00 Blood Type O Positive 03/14/23 22:05 Rho(D) Type Positive 03/14/23 22:05 Antibody Screen Negative 03/14/23 22:05 Vitals Last Vital Signs Temp 98.2 F 03/16/23 07:39 Pulse 96 03/16/23 07:39 Resp 17 03/16/23 07:39 BP 112/60 03/16/23 07:39 Pulse Ox 96 03/16/23 07:39 O2 Del Method Nasal Cannula 03/16/23 01:36 O2 Flow Rate 2 03/16/23 01:36 Discharge Plan Discharge Patient Disposition: Home Condition: Stable Prescriptions: New oxycodone 5 mg Tablet 5 mg PO Q6H PRN (Reason: Mod to severe pain , 2nd line) Qty: 10 0RF aspirin 325 mg tablet 325 mg PO BID Qty: 60 0RF pantoprazole [Protonix] 20 mg tablet,delayed release (DR/EC) 20 mg PO BID Qty: 60 0RF levothyroxine 25 mcg Tablet 25 mcg PO QAM Qty: 60 3RF sennosides-docusate sodium [Senna-S] 8.6-50 mg tablet 1 tab-cap PO DAILY Qty: 10 0RF Continued donepezil 10 mg tablet 10 mg PO QPM propranolol 20 mg tablet 10 mg PO ONCE famciclovir 500 mg tablet 500 mg PO TID 7 Days Qty: 21 0RF gabapentin 300 mg capsule 300 mg PO BID Qty: 60 0RF mupirocin 2 % ointment 1 applic topical BID Qty: 15 0RF furosemide [Lasix] 20 mg tablet 20 mg PO DAILY Qty: 30 2RF Discharge Orders: Discharge Order (Routine); Ordered 03/16/23 Ordered By: Isatu Giang Other Ambulatory Orders: DME: [employer] (Order) Location: None Selected Ordered By: Isatu Giang DME: Walker (Order) Location: None Selected Ordered By: Isatu Giang Referrals: Que Joyce MD [Primary Care Provider] - Patient Instructions: Opioid Safety Activity Restrictions/Additional Instructions: Orthopedic discharge instructions: Weightbearing as tolerated at 30-50% to the operative extremity. Ice as needed for pain and swelling Encourage knee and hip range of motion as tolerated PT/OT Take pain medication as prescribed Take antinausea medication as needed Supplement with Citracal vitamin D for bone health and healing Take (blood thinner) as prescribed for blood clot prevention Take Colace as needed for constipation Leave Silverlon dressings on and in place for 7 days. After this they may be removed you may shower/rinse incisions with warm soapy water, pat dry redress with a dry dressing. Okay to sponge bath/shower with [place] dressings as they should be waterproof however if they do get saturated or wet please take these off dry the incision and redressed with a new dry sterile bandage. Follow-up in the orthopedic office with Dr. Ramachandran in 2 weeks for repeat x-rays and incision check/staple removal Contact the office for any questions or concerns (i.e. increasing redness and drainage around the incision, fevers, or chills, or severe worsening in pain/change in symptoms) Discharge Attestations Time Spent in Discharge Care*: greater than 30 min Quality Metrics Clinical Quality Measures [ No reported AMI, CVA or VTE this stay] Coding Level of Care Code Acute Code for Chg Fwd Diagnoses Subtrochanteric fracture of right femur S72.21XA Closed fracture of right hip S72.001A Avulsion fracture of medial malleolus of right tibia S82.51XA Encounter type: initial encounter Fracture type: closed Hypothyroidism E03.9
[2023-03-16] MEDS: donepezil 5 MG Tablet 10 MG PO (08:47)
[2023-03-16] MEDS: calcium carb-vit d 600mg/400unit 1 Tablet 1 EACH PO ×2 (08:47→17:37)
[2023-03-16] MEDS: gabapentin 300 mg Capsule PO ×2 (08:47→17:37)
[2023-03-16] MEDS: docusate sodium 100 mg Capsule PO ×2 (08:47→17:36)
[2023-03-16] MEDS: iron polysaccharide complex 150 mg Capsule PO ×2 (08:48→17:37)
[2023-03-16] MEDS: mupirocin oint 22 gm 1 APPLIC NASAL ×2 (08:48→17:41)
[2023-03-16] MEDS: multivitamin therapeutic Tablet 1 TAB PO (08:48)
[2023-03-16] MEDS: chlorhexidine gluconate 0.12% Btl 473 mL 30 ML MUCOUS MEM ×4 (08:49→20:47)
[2023-03-16] MEDS: dextrose 5%-sod chloride 0.9% 1,000 ML 100 ML IV (09:10)
[2023-03-16 09:13] LABS: Hematocrit 28.1 % (36-47)
--- NOTE | 2023-03-16 09:40 | PM.PN ---
Subjective Subjective: Patient initially reported that she wanted to go home hands walker and a bedside commode was arranged however when the granddaughter arrived patient wanted to go to SNF/rehab Discharge orders were canceled Granddaughter told us that she already has diagnosis of hypothyroidism and takes 100 mcg levothyroxine Vitals/I&O/Wt Last Vital Signs Temp 98.2 F 03/16/23 07:39 Pulse 96 03/16/23 07:39 Resp 17 03/16/23 07:39 BP 112/60 03/16/23 07:39 Pulse Ox 96 03/16/23 07:39 O2 Del Method Nasal Cannula 03/16/23 01:36 O2 Flow Rate 2 03/16/23 01:36 03/15/23 03/16/23 03/16/23 22:59 06:59 14:59 Intake Total 2600 / 3700 50 / 3750 1000 / 1000 Output Total 1200 / 1200 200 / 1400 Balance 1400 / 2500 -150 / 2350 1000 / 1000 Weight last 48 hrs Weight 72.575 kg Physical Exam Narrative: Nonfocal neuro exam Awake and alert Doing well on room air Abdomen soft Family at the bedside Pleasant and cooperative Urinary Catheter Management: Toribio: Cath Placed During This Visit: yes Reason for Continuing Indwelling Catheter: Perioperative Use in Selected Surgeries Urinary Catheter Date of Insertion: 03/14/23 Urinary Catheter Time of Insertion: 21:12 Data 03/16/23 08:03 03/16/23 05:12 A&P Assessment and plan (1) Hypothyroidism: (2) Subtrochanteric fracture of right femur: (3) Closed fracture of right hip: Plan Patient will go to SNF Continue levothyroxine Continue propanolol Check H&H Continue DVT prophylaxis Patient is hemodynamically stable Continue PT Attestations Medical Necessity Statement*: Discharge tomorrow Diagnoses Hypothyroidism E03.9 Subtrochanteric fracture of right femur S72.21XA Closed fracture of right hip S72.001A
[2023-03-16] MEDS: potassium chloride oral liq 20 mEq/15 mL UDC 40 MEQ PO (10:03)
--- NOTE | 2023-03-16 10:44 | PC.CHAP ---
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 visit [] Patient/Family/Request visit [] Outpatient visit [] Follow-up visit [] Physician referral [] Code/Alert [x] Routine visit [] Staff referral [] Actively dying [] Patient sleeping [] Family support [] [] Out of room [] Palliative care [] [x] Receiving care in room [] Pre-surgical visit [] Trauma [] Long length of stay [] ICU visit [] Other: Relational/Emotional Strength [x] Patient feels connected with others/family/visitors/staff [] Distress [] Loneliness/isolation [] Abandonment Spirituality of Patient [x] Person of Maureen [] Attends Moravian of their Maureen [x] Believes in Prayer [] Reads Bible or Gnosticist materials [] There are Spiritual issues to be addressed 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 Java 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 Interventions [x] Prayer [x] Active listening [x] Non-anxious presence [x] Spiritual/emotional support [] Crisis/trauma care [x] Spiritual counseling [] Bereavement support [] Provided bereavement packet [] Provided Bible/devotional materials [] Provided toy/stuffed animal, coloring book to patient or family member [] Provided Communion [] Anointing/[place] [] Salvation [x] Completed spiritual assessment [] Other: Impact on Illness or Injury [] Angry [] Fearful [] Anxious [] Often cries [] Exhaustion [] Unable to work [] Unable to attend restoration [] Unable to walk/stand [] Unable to read [] Unable to drive [] Unable to eat/drink [] Unable to sleep [] Unable to be with family [] Patient intubated [] Other: Summary senior had a [facility] see who she does +1 has a good attitude Time spent with patient 10 mins
--- NOTE | 2023-03-16 13:26 | P.PN_ITS ---
Subjective Subjective: Patient is a 72-year-old female who is 1 day postop right Trochanteric femoral nail. Denies any fevers, nausea or vomiting. Denies any acute events overnight. Patient says she is doing well and she got up with physical therapy yesterday and today. Pain is controlled. They are currently trying to get patient placed in a rehab/penitentiary facility. Case management thought pt would likely be placed and discharged from hospital tomorrow. Vitals/I&O/Wt Last Vital Signs Temp 98.1 F 03/16/23 12:00 Pulse 104 H 03/16/23 12:08 Resp 17 03/16/23 12:00 BP 107/64 03/16/23 12:08 Pulse Ox 94 03/16/23 12:00 O2 Del Method Nasal Cannula 03/16/23 01:36 O2 Flow Rate 2 03/16/23 01:36 03/15/23 03/16/23 03/16/23 22:59 06:59 14:59 Intake Total 2600 / 3700 50 / 3750 1000 / 1000 Output Total 1200 / 1200 200 / 1400 Balance 1400 / 2500 -150 / 2350 1000 / 1000 Weight last 48 hrs Weight 160 lb Physical Exam Narrative: Patient is up and sitting comfortably on chair in her room. She appears in no acute distress or pain. Patient was able to stand up and weight bear. Const: COMMON NORMALS: no acute distress and alert Resp: COMMON NORMALS: normal respiratory effort EFFORT & INSPECTION: Yes able to speak in complete sentences and No respiratory distress Extremity: NARRATIVE EXTREMITY EXAM: Right hip-Silverlon dressing is on dry and intact. No erythema, Warmth or swelling or any other sign of infection seen. Patient is able to stand up and weight-bear in room. She can dorsiflex and plantarflex foot. She is able to perform right straight leg raise. Patient can wiggle toes and toes are warm and well-perfused. pedal pulse 2+. Neuro: SENSORIUM/ORIENTATION: Yes alert Skin: GENERAL SKIN EXAM: dry skin Urinary Catheter Management: Toribio: Cath Placed During This Visit: yes Reason for Continuing Indwelling Catheter: Perioperative Use in Selected Surgeries Urinary Catheter Date of Insertion: 03/14/23 Urinary Catheter Time of Insertion: 21:12 Data 03/16/23 08:03 03/16/23 05:12 A&P Assessment and plan (1) Subtrochanteric fracture of right femur: Plan Plan: -Imaging and Labs reviewed -Hospitalist on board for medical management. -VTE prophylaxis-continue Lovenox -Weightbearing on right leg as tolerated -Pain control -PT -Case management working on placement into Rehab/penitentiary facility Attestations Medical Necessity Statement*: Ongoing care for right trochanteric femoral nail due to Right subtrochanteric femur fracture Coding Level of Care Code Acute Code for [facility] Fwd Diagnoses Subtrochanteric fracture of right femur S72.21XA
[2023-03-16] MEDS: ceFAZolin 2,000 MG in sodium chloride 0.9% (plus) 50 ML 100 MG IV ×2 (15:41→21:43)
[2023-03-16] MEDS: propranolol 20 mg Tablet 10 MG PO (17:37)
[2023-03-16 17:58] LABS: Hepatitis A Antibody IgM Non-Reactive (Nonreactive); Hepatitis B Core IgM Non-Reactive (Nonreactive); Hepatitis B Surface Antigen Non-Reactive (Nonreactive); Hepatitis C Virus Antibody Non-Reactive (Nonreactive)
[2023-03-16 18:22] LABS: HIV 1 & 2 Antibody Non-Reactive (Non-Reactiv); HIV 1 & 2 Antigen Non-Reactive (Non-Reactiv)
--- NOTE | 2023-03-16 18:50 | PC.NURSE ---
Pt presents with feelings of racing heart and HR of 191. Sinus tach noted on telemetry. Notified Dr. Giang. Labetolol 10mg IVP ordered and EKG.
[2023-03-16] MEDS: labetalol 5 mg/mL SDV 20mL 10 MG IVP (18:58)
[2023-03-16] MEDS: enoxaparin 40 mg/0.4 mL Syringe SUBCUT (20:47)
[2023-03-16] MEDS: pantoprazole 40 mg SDV IVP (21:54)
[2023-03-17] MEDS: dextrose 5%-sod chloride 0.9% 1,000 ML 100 ML IV (02:20)
[2023-03-17 03:05] VITALS: BP 102/58; PULSE 101; RESP 19; TEMP 36.9; O2SAT 92
[2023-03-17 06:00] VITALS: PULSE 113
[2023-03-17 06:10] VITALS: RESP 16
[2023-03-17] MEDS: levothyroxine 25 mcg Tablet PO (06:10)
[2023-03-17] MEDS: oxyCODONE 5 mg IR Tab/Cap PO (06:10)
[2023-03-17] MEDS: propranolol 20 mg Tablet 10 MG PO (07:36)
[2023-03-17] MEDS: calcium carb-vit d 600mg/400unit 1 Tablet 1 EACH PO (07:36)
[2023-03-17] MEDS: docusate sodium 100 mg Capsule PO (07:36)
[2023-03-17] MEDS: donepezil 5 MG Tablet 10 MG PO (07:37)
[2023-03-17] MEDS: chlorhexidine gluconate 0.12% Btl 473 mL 30 ML MUCOUS MEM (07:37)
[2023-03-17] MEDS: multivitamin therapeutic Tablet 1 TAB PO (07:37)
[2023-03-17] MEDS: iron polysaccharide complex 150 mg Capsule PO (07:37)
[2023-03-17] MEDS: gabapentin 300 mg Capsule PO (07:37)
[2023-03-17] MEDS: mupirocin oint 22 gm 1 APPLIC NASAL (07:38)
[2023-03-17 08:00] VITALS: BP 95/50; PULSE 84; RESP 16; TEMP 36.9; O2SAT 93
--- NOTE | 2023-03-17 09:28 | PM.DCS ---
Discharge Providers Date of Admission: 03/14/23 20:20 Date of Discharge: March 17, 2023 Attending Provider at Admission: Diogo Sanchez MD Attending Provider at Discharge: Isatu Giang MD Primary Care Provider: Que Joyce MD Diagnoses at Discharge Discharge Diagnosis (1) Subtrochanteric fracture of right femur: Status: Acute Reason for Visit Reason for Visit: fall, right hip pain Hospital Course Hospital Course 72 female who was admitted to the hospital for management evaluation of right subtrochanteric femur fracture, Dr. Marcos was consulted, status post intervention on 03/15, patient did well with physical therapy, H&H was repeated before her discharge, her propranolol was discontinued that probably would explain her rebound tachycardia, she is not in significant pain, going to assisted living facility & home health services arranged as well. Patient already has diagnosis of hypothyroidism her home medications were not updated, granddaughter brought all of her medications, I will resume her home dose of levothyroxine. Considering the side effect of propanolol I will discontinue and add metoprolol for her tachycardia. Physical Exam Narrative: Pleasant and cooperative GCS 15 Doing well on room air Abdomen soft S1, S2 Urinary Catheter Management: Toribio: Cath Placed During This Visit: yes Reason for Continuing Indwelling Catheter: Perioperative Use in Selected Surgeries Urinary Catheter Date of Insertion: 03/14/23 Urinary Catheter Time of Insertion: 21:12 Discharge Data Studies Completed and Pending Completed Studies During Hospitalization Category Date Time Status CXRP [XR chest 1V portable [id number]] Stat Exams 03/14/23 19:37 Completed XR femur LT min 2V* [id number] Stat Exams 03/14/23 19:59 Completed XR femur RT min 2V* [id number] Routine Exams 03/15/23 Completed XR hip RT 2-3V wo/w pel* [id number] Routine Exams 03/15/23 17:55 Completed XR hip RT 2-3V wo/w pel* [id number] Stat Exams 03/14/23 19:25 Completed XR knee RT 3V* [id number] Stat Exams 03/14/23 19:25 Completed Radiology Impressions Knee X-Ray 03/14/23 19:25 IMPRESSION: No acute findings. Chest X-Ray 03/14/23 19:37 IMPRESSION: Subtle asymmetric left basal opacities which may be on the basis of atelectasis given suboptimal lung expansion. Superimposed aspiration in the setting of trauma possible. Hip/Pelvis X-Ray 03/15/23 17:55 IMPRESSION: Status post ORIF of proximal right femur fracture. Laboratory Results WBC 9.69 10^3/uL (3.29-11.43) 03/16/23 05:12 RBC 2.98 10^6/uL (3.85-5.65) L 03/16/23 05:12 Hgb 8.90 g/dL (11.27-16.99) L 03/16/23 08:03 Hct 28.1 % (36-47) L 03/16/23 08:03 MCV 93.3 fl (85-98) 03/16/23 05:12 MCH 29.5 pg (27-33) 03/16/23 05:12 MCHC 31.7 g/dL (30-55) 03/16/23 05:12 RDW 13.8 % (12.1-15.1) 03/16/23 05:12 Plt Count 212 10^3/cmm (157-399) 03/16/23 05:12 MPV 12.6 fL (7.4-10.4) H 03/16/23 05:12 Neut % (Auto) 78.2 % 03/16/23 05:12 Lymph % (Auto) 11.8 % 03/16/23 05:12 Arthur % (Auto) 9.4 % 03/16/23 05:12 Eos % (Auto) 0.0 % 03/16/23 05:12 Baso % (Auto) 0.3 % 03/16/23 05:12 Neut # (Auto) 7.58 10^3/uL (1.8-7.7) 03/16/23 05:12 Lymph # (Auto) 1.1 10^3/uL (0.8-4.8) 03/16/23 05:12 Arthur # (Auto) 0.9 10^3/uL (0.2-0.9) 03/16/23 05:12 Eos # (Auto) 0.0 10^3/uL (0.0-0.8) 03/16/23 05:12 Baso # (Auto) 0.0 10^3/uL (0.0-0.1) 03/16/23 05:12 Nucleated RBC % (auto) 0 % 03/16/23 05:12 Nucleated RBCs # 0.0 /100WBC 03/16/23 05:12 PT 13.00 SECONDS (12.1-14.9) 03/14/23 22:05 INR 0.96 (0.8-1.2) 03/14/23 22:05 Sodium 139 mmol/L (136-145) 03/16/23 05:12 Potassium 3.4 mmol/L (3.5-5.1) L 03/16/23 05:12 Chloride 105 mmol/L (98-107) 03/16/23 05:12 Carbon Dioxide 23 mmol/L (22-29) 03/16/23 05:12 Anion Gap 14.4 (5-19) 03/16/23 05:12 BUN 6 mg/dL (8-23) L 03/16/23 05:12 Creatinine 0.6 mg/dL (0.5-0.9) 03/16/23 05:12 GFR Calculation Not Reportable 03/16/23 05:12 Glucose 174 mg/dL (65-115) H 03/16/23 05:12 Estimat Average Glucose 126 03/14/23 22:05 Hemoglobin A1c 6.0 % (4.0-6.0) 03/14/23 22:05 Calculated Osmolality 290 mOsm/kg (285-295) 03/16/23 05:12 Calcium 7.6 mg/dL (8.5-10.5) L 03/16/23 05:12 Total Bilirubin 0.5 mg/dL (0.15-1.2) 03/14/23 22:05 AST 22 U/L (0-32) 03/14/23 22:05 ALT 13 U/L (0-33) 03/14/23 22:05 Alkaline Phosphatase 73 U/L (35-105) 03/14/23 22:05 Troponin T Baseline 11 ng/L (0-10) H 03/14/23 22:05 Troponin T 120 Minute 11.55 ng/L (0-10) H 03/15/23 00:00 Delta Troponin T 0.55 ABS# (0-10) 03/15/23 00:00 Troponin T Hi Sens 6Hr 10.14 ng/L (0-10) H 03/15/23 03:33 Troponin T Hi Sens 6Hr Delta -0.86 ng/L (0-12) L 03/15/23 03:33 Total Protein 6.3 g/dL (6.6-8.7) L 03/14/23 22:05 Albumin 4.1 g/dL (3.5-5.2) 03/14/23 22:05 Globulin 2.2 g/dL (1.3-4.6) 03/14/23 22:05 Triglycerides 69 mg/dL (0-150) 03/14/23 22:05 Cholesterol 204 mg/dL (0-200) H 03/14/23 22:05 LDL Cholesterol, Calc 106 mg/dL (50-129) 03/14/23 22:05 HDL Cholesterol 84 mg/dL (60-100) 03/14/23 22:05 LDL/HDL Ratio 1.26 RATIO (0.00-3.22) 03/14/23 22:05 Cholesterol/HDL Ratio 2.43 mg/dL (0.0-4.40) 03/14/23 22:05 TSH 30.45 uIU/mL (0.27-4.20) H 03/14/23 22:05 Free T4 0.31 ng/dL (0.82-1.77) L 03/15/23 03:33 Free T3 0.9 PG/ML (2.0-4.4) L 03/15/23 03:33 Urine Color Yellow (Yellow) 03/14/23 22:00 Urine Appearance Clear (CLEAR) 03/14/23 22:00 Urine pH 8 (5-7) H 03/14/23 22:00 Ur Specific [place] 1.015 (1.005-1.030) 03/14/23 22:00 Urine Protein Neg (Negative) 03/14/23 22:00 Urine Glucose (UA) Norm (Normal) 03/14/23 22:00 Urine Ketones 1+ (Negative) H 03/14/23 22:00 Urine Blood Neg (Negative) 03/14/23 22:00 Urine Nitrate Negative (Negative) 03/14/23 22:00 Urine Bilirubin Neg (Negative) 03/14/23 22:00 Prot Sulfosalicylic Acd Negative (Negative) 03/14/23 22:00 Urine Urobilinogen Norm mg/dL (Negative) 03/14/23 22:00 Ur Leukocyte Esterase Negative (Negative) 03/14/23 22:00 Hepatitis A IgM Ab Non-reactive (Nonreactive) 03/16/23 16:58 Hep Bs Antigen Non-reactive (Nonreactive) 03/16/23 16:58 Hep B Core IgM Ab Non-reactive (Nonreactive) 03/16/23 16:58 Hepatitis C Antibody Non-reactive (Nonreactive) 03/16/23 16:58 HIV 1&2 Ab & HIV 1 Ag Non-reactive (Non-Reactiv) 03/16/23 16:58 HIV 1&2 Antibody Non-reactive (Non-Reactiv) 03/16/23 16:58 Blood Type O Positive 03/14/23 22:05 Rho(D) Type Positive 03/14/23 22:05 Antibody Screen Negative 03/14/23 22:05 Vitals Last Vital Signs Temp 98.5 F 03/17/23 08:00 Pulse 84 03/17/23 08:00 Resp 16 03/17/23 08:00 BP 95/50 03/17/23 08:00 Pulse Ox 93 03/17/23 08:00 O2 Del Method Room Air 03/17/23 03:05 O2 Flow Rate 2 03/16/23 01:36 Discharge Plan Discharge Patient Disposition: Xfer SNF Condition: Stable Prescriptions: New oxycodone 5 mg Tablet 5 mg PO Q6H PRN (Reason: Mod to severe pain , 2nd line) Qty: 10 0RF docusate sodium 100 mg Capsule 100 mg PO BID Qty: 20 0RF aspirin 325 mg tablet 325 mg PO BID Qty: 60 0RF pantoprazole [Protonix] 20 mg tablet,delayed release (DR/EC) 20 mg PO BID Qty: 60 0RF calcium carbonate-vitamin D3 600 mg-10 mcg (400 unit) Tablet 1 ea PO BID Qty: 30 0RF sennosides-docusate sodium [Senna-S] 8.6-50 mg tablet 1 tab-cap PO DAILY Qty: 10 0RF metoprolol tartrate 25 mg tablet 25 mg PO BID Qty: 60 0RF Continued donepezil 10 mg tablet 10 mg PO QPM famciclovir 500 mg tablet 500 mg PO TID 7 Days Qty: 21 0RF mupirocin 2 % ointment 1 applic topical BID Qty: 15 0RF atorvastatin 40 mg Tablet 40 mg PO QPM Effexor XR 75 mg Capsule,Extended Release 24hr 75 mg PO QPM triamcinolone acetonide 0.1 % cream 1 applic TOPICAL TID PRN (Reason: Rash) levothyroxine 100 mcg Tablet 100 mcg PO QAM omeprazole 20 mg Capsule,Delayed Release(Dr/Ec) 20 mg PO BEDTIME Premarin 0.3 mg Tablet 0.3 mg PO QAM Discontinued propranolol 20 mg tablet 10 mg PO QAM Discharge Orders: Discharge Order (Routine); Ordered 03/17/23 Ordered By: Isatu Giang Other Ambulatory Orders: DME: [employer] (Order) Location: None Selected Ordered By: Isatu Giang DME: Walker (Order) Location: None Selected Ordered By: Isatu Giang Referrals: [facility] [Outside] Que Joyce MD [Primary Care Provider] - Activity Restrictions/Additional Instructions: Orthopedic discharge instructions: Weightbearing as tolerated at 30-50% to the operative extremity. Ice as needed for pain and swelling Encourage knee and hip range of motion as tolerated PT/OT Take pain medication as prescribed Take antinausea medication as needed Supplement with Citracal vitamin D for bone health and healing Take (blood thinner) as prescribed for blood clot prevention Take Colace as needed for constipation Leave Silverlon dressings on and in place for 7 days. After this they may be removed you may shower/rinse incisions with warm soapy water, pat dry redress with a dry dressing. Okay to sponge bath/shower with Silverlon dressings as they should be waterproof however if they do get saturated or wet please take these off dry the incision and redressed with a new dry sterile bandage. Follow-up in the orthopedic office with Dr. Ramachandran in 2 weeks for repeat x-rays and incision check/staple removal Contact the office for any questions or concerns (i.e. increasing redness and drainage around the incision, fevers, or chills, or severe worsening in pain/change in symptoms) Discharge Attestations Time Spent in Discharge Care*: greater than 30 min Quality Metrics Clinical Quality Measures [ No reported AMI, CVA or VTE this stay] Coding Level of Care Code Acute Code for [facility] Fwd Diagnoses Subtrochanteric fracture of right femur S72.21XA
--- NOTE | 2023-03-17 11:24 | PC.SOCIAL ---
IMM Update pg 2 of IMM updated and reviewed w/ patient. Copy provided and copy dated, initialed and placed in chart.
[2023-03-17 12:37] VITALS: BP 95/50; PULSE 84; RESP 16; TEMP 36.9; O2SAT 93
== END 2023-03-17 12:41 | disposition home health service (06) | DRG 482 ==
LOC: ER 20:09 → MEDSURG 20:21
PROVIDERS: Student in an Organized Health Care Education/Training Program; Admitting Provider Family Medicine; Emergency Provider Emergency Medicine; PCP Family Medicine; Visit Provider Internal Medicine
PROC: 0QS606Z Reposition Right Upper Femur with Intramedullary Internal Fixation Device, Open Approach (ICD-10-PCS; CPT 27245; principal; 2023-03-15 12:50)
DX: M84.75 Atypical femoral fracture (principal); Z79.83 Long term (current) use of bisphosphonates; G89.29 Other chronic pain; M54.30 Sciatica, unspecified side; Z87.891 Personal history of nicotine dependence; E03.9 Hypothyroidism, unspecified; Z75.1 Person awaiting admission to adequate facility elsewhere; E78.5 Hyperlipidemia, unspecified
CPT/HCPCS: 36415; 51702; 71045; 73502; 73552; 73562; 76000; 80048; 80053; 80061; 80074; 81003; 83036; 84439; 84443; 84481; 84484; 85014; 85018; 85025; 85610; 86850; 86900; 87806; 90471; 90686; 93005; 96365; 96372; 96375; 97110; 97116; 97161; 97165; 99285; C1713; C1776; C9113; J0131; J0690; J1100; J1170; J1650; J1885; J2270; J2405; J2704; J3010; J3370; J3490; J7030; J7042; P9047

== ENCOUNTER → 2023-03-30 14:47 | Outpatient (BNVA) | payer MEDICARE, OTHER, SELFPAY | PROVIDERS: PCP Family Medicine; Visit Provider Physician Assistant | DX: Z87.81 Personal history of (healed) traumatic fracture (principal) | CPT/HCPCS: 73502; 99024 ==

== ENCOUNTER → 2023-05-25 15:02 | Outpatient (BNVA) | payer MEDICARE, OTHER, SELFPAY | PROVIDERS: PCP Family Medicine; Visit Provider Physician Assistant | DX: Z87.81 Personal history of (healed) traumatic fracture (principal); S72.21XD Displaced subtrochanteric fracture of right femur, subsequent encounter for closed fracture with routine healing; X58.XXXD Exposure to other specified factors, subsequent encounter | CPT/HCPCS: 73502; 99024; 99213 ==

== ENCOUNTER → 2023-09-19 10:07 | Outpatient (BNVA) | payer MEDICARE, OTHER, SELFPAY | PROVIDERS: PCP Family Medicine; Visit Provider Student in an Organized Health Care Education/Training Program | DX: Z87.81 Personal history of (healed) traumatic fracture (principal) | CPT/HCPCS: 73502; 99213 ==

== ENCOUNTER 2023-09-25 06:00 | Outpatient (RCR) | payer MEDICARE, OTHER, SELFPAY | END 2023-10-10 23:59 | disposition home or self-care (01) | LOC: APT 06:00 | PROVIDERS: PCP Family Medicine; Visit Provider Student in an Organized Health Care Education/Training Program | DX: Z98.890 Other specified postprocedural states (principal) | CPT/HCPCS: 97110; 97161 ==

== ENCOUNTER 2023-10-11 06:00 | Outpatient (RCR) | payer MEDICARE, OTHER, SELFPAY | END 2023-11-10 23:59 | disposition home or self-care (01) | LOC: APT 06:00 | PROVIDERS: PCP Family Medicine; Visit Provider Student in an Organized Health Care Education/Training Program | DX: Z98.890 Other specified postprocedural states (principal) | CPT/HCPCS: 97110 ==

== ENCOUNTER → 2023-11-09 10:39 | Outpatient (BNVA) | payer MEDICARE, OTHER, SELFPAY | PROVIDERS: PCP Family Medicine; Visit Provider Nurse Practitioner Family | DX: N39.0 Urinary tract infection, site not specified (principal) | CPT/HCPCS: 81000 ==

== ENCOUNTER → 2023-11-21 10:02 | Outpatient (BNVA) | payer MEDICARE, OTHER, SELFPAY | PROVIDERS: PCP Family Medicine; Visit Provider Nurse Practitioner Family | DX: N39.0 Urinary tract infection, site not specified (principal) | CPT/HCPCS: 81000 ==

== ENCOUNTER 2023-12-28 08:29 | Outpatient (CLI) | payer MEDICARE, OTHER, SELFPAY ==
--- NOTE | 2023-12-28 08:40 | MR_ITS ---
WS: [id number] MRI BRAIN WITHOUT CONTRAST HISTORY: MEMORY LOSS COMPARISON: None available. TECHNIQUE: Diffusion imaging, multiplanar T1, T2 and FLAIR imaging obtained. No evidence for acute infarct or hemorrhage. [place]-white matter differentiation is normal. Mild bilate ral hippocampal atrophy. There is extensive T2 and FLAIR signal hyperintensities throughout the white matter. Nearly confluent signal surrounding the ventricles with more patchy foci in the subcortical white matter extending towards the vertex. Mild cerebral atrophy. No remote or acute infarcts are volume loss. Ventricles and extra-axial spaces are normal. No inferior displacement of cerebellar tonsils. The sella turcica and pituitary gland are unremarkabl e. Dural venous sinuses and [place] demonstrate no abnormality on this unenhanced studies. Paranasal sinuses: Extensive heterogeneous signal in the maxillary sinuses. Consistent with chronic s inus disease. Similar findings extend into the frontal ethmoid and sphenoid sinuses. Mastoid air cells: Normal. Calvarium and scalp: Intact. MR/MR head wo con* [id number] IMPRESSION: 1. No acute infarct. 2. Moderately advanced small vessel ischemic changes noted bilaterally. 3. Mild hippocampal atrophy. 4. Extensive heterogeneous signal throughout the paranasal sinuses. Most likel y related to chronic sinus disease with inspissated material.
== END 2023-12-28 08:30 | disposition home or self-care (01) ==
LOC: RAD 08:30
PROVIDERS: PCP Family Medicine; Visit Provider Internal Medicine
DX: R41.3 Other amnesia (principal); G31.89 Other specified degenerative diseases of nervous system; R93.0 Abnormal findings on diagnostic imaging of skull and head, not elsewhere classified
CPT/HCPCS: 70551

== ENCOUNTER → 2024-02-14 13:20 | Outpatient (BNVA) | payer MEDICARE, OTHER, SELFPAY | PROVIDERS: PCP Family Medicine; Visit Provider Nurse Practitioner Family | DX: E03.9 Hypothyroidism, unspecified (principal); E78.5 Hyperlipidemia, unspecified; Z87.81 Personal history of (healed) traumatic fracture | CPT/HCPCS: 80053; 80061; 84443; 85025 ==

== ENCOUNTER 2024-03-11 13:21 | Emergency (ER) | payer MEDICARE, OTHER, SELFPAY ==
[2024-03-11 13:31] VITALS: BP 114/86; PULSE 112; TEMP 36.7; O2SAT 96; BMI 31.0
[2024-03-11 14:03] LABS: Basophils # 0.1 10^3/uL (0.0-0.1); Basophils % 0.6 %; Eosinophils # 0.2 10^3/uL (0.0-0.8); Eosinophils % 1.8 %; Hematocrit 36.8 % (36-47); Lymphocytes # 2.8 10^3/uL (0.8-4.8); Lymphocytes % 21.9 %; Mean Corpuscular HGB Conc 28.8 g/dL (30-55); Mean Corpuscular Hemoglobin 21.2 pg (27-33); Mean Corpuscular Volume 73.7 fl (85-98); Monocytes # 1.2 10^3/uL (0.2-0.9); Monocytes % 9.2 %; Neutrophils # 8.42 10^3/uL (1.8-7.7); Neutrophils % 66.2 %; Nucleated Red Blood Cells % 0 %; Platelet Count 354 10^3/cmm (157-399); Red Blood Count 4.99 10^6/uL (3.85-5.65); White Blood Count 12.72 10^3/uL (3.29-11.43)
[2024-03-11 14:11] LABS: Alanine Aminotransferase 12 U/L (0-33); Albumin Level 4.1 g/dL (3.5-5.2); Alkaline Phosphatase 125 U/L (35-105); Aspartate Amino Transferase 23 U/L (0-32); Blood Urea Nitrogen 14 mg/dL (8-23); Calcium 8.9 mg/dL (8.5-10.5); Carbon Dioxide 21 mmol/L (22-29); Chloride 99 mmol/L (98-107); Globulin 3.8 g/dL (1.3-4.6); Glucose 132 mg/dL (65-115); Lipase 22 U/L (13-60); Osmolality Calculated 284 mOsm/kg (285-295); Sodium 136 mmol/L (136-145); Total Bilirubin 0.6 mg/dL (0.15-1.2); Total Protein 7.9 g/dL (6.6-8.7)
[2024-03-11 14:13] LABS: Slide Review Slide Review Perform
--- NOTE | 2024-03-11 14:25 | CT_ITS ---
WS: [id number] CT ABDOMEN AND PELVIS WITH CONTRAST HISTORY: abd pain TECHNIQUE: Imaging performed of the abdomen and pelvis with IV contrast. Single phase imaging of the abdomen. Coronal and sagittal reformats are submitted. All CT scans at [facility] use at [address] one of these dose optimization techniques: automated exposure control; mA and/or kV adjustment per patient size (includes targeted exams where dose is matched to clinical indication); or iterative re construction. IV CONTRAST: Omnipaque 350; 100 mL IV. Oral contrast: No DLP: 574.01 mGy.cm COMPARISON: None available. Lower thorax: Benign granuloma LEFT lung base. Mild cardiomegaly. No hiatal hernia. Liver/biliary system: Normal size liver. Multiple scattered cysts and diffuse too small to characteri ze hypodensities within the liver. No intrahepatic duct dilatation. Normal portal vein. Gallbladder: Normal. No gallstones or wall thickening. No pericholecystic fluid. Pancreas: Normal size pancreas and pancreatic duct. No adjacent inflammation. Spleen: Normal size spleen. No mass or infarct. Adrenal glands: Normal. Right kidney: Normal. Left kidney: Normal. Aorta: Normal. Lymphadenopathy: None. Free fluid: None. GI tract: Stomach is not distended. Increased fluid within the small bowel but no obstruction. There is also increased fluid within the colon. Appendix is not identified. Abdominal wall: Unremarkable abdominal wall. No hernia. Pelvis: No free fluid or adenopathy within the pelvis. Prior hysterectomy. Urinary bladder is only sl ightly distended. Bones: Degenerative disc disease in the lumbar spine. Prior ORIF RIGHT hip. CT/CT abdomen pelvis w con* [id number] IMPRESSION: 1. No GI tract obstruction. 2. There is increased fluid in the small bowel and liquid feces. May be due to gastroenteritis. 3. Hepatic cyst. Additional too small to characterize hypodensities in the nima er. 4. No free fluid or adenopathy. 5. No renal obstruction.
--- NOTE | 2024-03-11 14:27 | ECG_ITS ---
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 Measurements Intervals [place] Rate: 134 P: 0 MS: 0 QRS: 60 QRSD: 89 T: 21 QT: 307 QTc: 459 Interpretive Statements ATRIAL FIBRILLATION WITH RAPID VENTRICULAR RESPONSE ST DEVIATION AND MODERATE T-WAVE ABNORMALITY, CONSIDER INFERIOR ISCHEMIA [-0.1+ mV T-WAVE IN II/aVF] Compared to ECG 03/15/2023 03:43:40 Possible ischemia now present Sinus rhythm no longer present T-wave abnormality still present Electronically Signed On 03-11-2024 18:42:17 CDT by Benji Barnhart M.D. [email or web address], [id number]
--- NOTE | 2024-03-11 14:31 | ED_ITS ---
HPI - Abdominal Pain 2 General: Chief Complaint: Abdominal Pain Stated Complaint: abd pain Time Seen by Provider: 03/11/24 13:56 Source: patient and family Mode of arrival: ambulatory Limitations: no limitations History of Present Illness: 73-year-old female who states that for t he last few days she has had some abdominal cramping along with diarrhea and just not feeling well. Had some general fatigue and malaise. Per granddaughter she does have dementia but seems to have a little increased confusion and definitely increased weakness. No fevers she denies any worsening improving factors. Associated Symptoms: Reports diarrhea and nausea; Denies chills, dysuria and fever(s) Related Data Home Medications Medication Instructions Recorded Confirmed donepezil 10 mg tablet 10 mg PO QPM 12/06/21 02/14/24 atorvastatin 40 mg tablet 40 mg PO QPM 03/16/23 02/14/24 conjugated estrogens 0.3 mg tablet 0.3 mg PO QAM 03/16/23 02/14/24 (Premarin) levothyroxine 100 mcg tablet 100 mcg PO QAM 03/16/23 02/14/24 omeprazole 20 mg capsule,delayed 20 mg PO BEDTIME 03/16/23 02/14/24 release triamcinolone acetonide 0.1 % 1 applic topical TID PRN Rash 03/16/23 02/14/24 topical cream Previous Rx's Medication Instructions Recorded mupirocin 2 % topical ointment 1 applic topical BID #15 grams 12/24/21 famciclovir 500 mg tablet 500 mg PO TID 7 days #21 tabs 02/08/22 pantoprazole 20 mg tablet,delayed 20 mg PO BID #60 tabs 03/16/23 release (Protonix) sennosides 8.6 mg-docusate sodium 1 tab-cap PO DAILY #10 tabs 03/16/23 50 mg tablet (Senna-S) calcium carbonate 600 mg-vitamin 1 ea PO BID #30 tabs 03/17/23 D3 10 mcg (400 unit) tablet docusate sodium 100 mg capsule 100 mg PO BID #20 caps 03/17/23 metoprolol tartrate 25 mg tablet 25 mg PO BID #60 tabs 03/17/23 hydrocodone 5 mg-acetaminophen 325 1 tab PO Q6H PRN pain 5 days #20 10/19/23 mg tablet tabs albuterol sulfate 90 mcg/actuation 2 puff inhalation QID PRN 10/18/23 aerosol inhaler shortness of breath or wheezing #6.7 grams amoxicillin 875 mg-potassium 1 tab PO BID #20 tabs 10/18/23 clavulanate 125 mg tablet prednisone 20 mg tablet 20 mg PO BID #10 tabs 10/18/23 escitalopram oxalate 10 mg tablet 10 mg PO DAILY #30 tabs 02/14/24 (Lexapro) hydroxyzine pamoate 25 mg capsule 25 mg PO BID PRN itching #60 caps 02/14/24 ferrous gluconate 324 mg (38 mg 324 mg PO BID #60 tabs 02/15/24 iron) tablet potassium chloride 20 mEq See Rx Instructions PO BID #36 tabs 02/15/24 tablet,extended release(part/cryst) (Klor-Con M) ondansetron 4 mg disintegrating 4 mg PO Q6H PRN nausea and 03/11/24 tablet vomiting #14 tabs Allergies Allergy/AdvReac Type Severity Reaction Status Date / Time No Known Allergies Allergy Verified 03/11/24 13:37 Review of Systems 2 Const: Reports: fatigue and malaise; Denies: fever(s), chills, body aches or change in appetite Eyes: Denies: blurry vision or eye discomfort ENMT: Denies: throat pain or dental pain Card: Denies: chest pain Resp: Denies: dyspnea GI: Reports: abdominal pain, nausea and diarrhea : Denies: dysuria Musc: Denies: neck pain or back pain Skin/Breast: Denies: rash Neuro: Denies: headache(s) PFSH ED 2 PFSH: Medical History Hyperlipidemia Hypothyroidism History of hypothyroidism History of hyperlipidemia Subtrochanteric fracture of right femur Closed fracture of right hip Avulsion fracture of medial malleolus of right tibia Surgical History History of hysterectomy Family History Other Cancer Diabetes Social History Smoking and tobacco/nicotine status: never used tobacco/nicotine Alcohol intake: never Caregiver/support person: No Lives independently: Yes Household members: none Marital status: / Number of children: 1 service: No Current occupational status: retired Physical Exam 2 Const: COMMON NORMALS: patient oriented x3 HENMT: COMMON NORMALS: normocephalic and atraumatic HEAD & SCALP: n ormocephalic and atraumatic Eye: COMMON NORMALS: Equal, round and reactive pupils present and EOMs intact bilaterally PUPIL: Yes Equal, round and reactive pupils present Neck/C-Spine: COMMON NORMALS: full ROM and supple Chest: COMMONS NORMALS: normal inspection of the chest and normal palpation of entire chest wall Resp: COMMON NORMALS: normal respiratory effort, No retractions, No use of accessory muscles and clear to auscultation bilaterally AUSCULTATION: clear to auscultation bilaterally Cardio: COMMON NORMALS: No murmurs present (Cardio) RATE: tachycardic R HYTHM: abnormal rhythm irregularly irregular GI: COMMON NORMALS: Normal to inspection, nondistended, normoactive bowel sounds present, Soft to palpation, non-tender and no masses PALPATION: Yes Soft to palpation Extremity: COMMON NORMALS: normal to inspection and full ROM Neuro: COMMON NORMALS: patient oriented x3, moves all extremities and no focal motor deficits Psych: COMMON NORMALS: mental status grossly normal, Normal thought process present and cooperative THOUGHT PROCESS: Normal thought process present Skin: COMMON NORMALS: no rashes or lesions noted and no wounds GENERAL SKIN EXAM: no rashes or lesions noted Course 2 Vital Signs: Vital signs: Vital Signs Temperature 98.0 F 03/11/24 13:31 Pulse Rate 96 03/11/24 14:47 Respiratory Rate 14 03/11/24 14:47 Blood Pressure 138/78 03/11/24 14:47 Pulse Oximetry 96 03/11/24 14:47 Oxygen Delivery Me thod Room Air 03/11/24 14:47 MDM - Abdominal Pain Medical Decision Making Patient presents here with some abdominal cramping along with vomiting diarrhea she feels much improved here after fluids she did have 1. A tachycardia could have been flutter she states she has had this in the past she had 1 episode of diarrhea here as well I did offer admission the nurse that spoke to her about admission after episode of diarrhea she is pretty adamant that she wants to go home and she feels much improved did get her follow-up with cardiology and with her PCP will send off stool cultures and C. difficile she is return if worsening she understands agrees to plan Medical Records I reviewed the patient's medical records. Lab Data I reviewed the patient's lab results. 03/11/24 13:46 03/11/24 13:46 Labs/Radiology: Radiology Impressions Abdomen/Pelvis CT 03/11/24 14:25 IMPRESSION: 1. No GI tract obstruction. 2. There is increased fluid in the small bowel and liquid feces. May be due to gastroenteritis. 3. Hepatic cyst. Additional too small to characterize hypodensities in the liver. 4. No free fluid or adenopathy. 5. No renal obstruction. Chest X-Ray 03/11/24 15:33 IMPRESSION: 1. Negative chest. Laboratory Results WBC 12.72 10^3/uL (3.29-11.43) H 03/11/24 13:46 RBC 4.99 10^6/uL (3.85-5.65) 03/11/24 13:46 Hgb 10.60 g/dL (11.27-16.99) L 03/11/24 13:46 Hct 36.8 % (36-47) 03/11/24 13:46 MCV 73.7 fl (85-98) L 03/11/24 13:46 MCH 21.2 pg (27-33) L 03/11/24 13:46 MCHC 28.8 g/dL (30-55) L 03/11/24 13:46 RDW 21.0 % (12.1-15.1) H 03/11/24 13:46 Plt Count 354 10^3/cmm (157-399) 03/11/24 13:46 MPV Not Reportable 03/11/24 13:46 Neut % (Auto) 66.2 % 03/11/24 13:46 Lymph % (Auto) 21.9 % 03/11/24 13:46 [place] % (Auto) 9.2 % 03/11/24 13:46 Eos % (Auto) 1.8 % 03/11/24 13:46 Baso % (Auto) 0.6 % 03/11/24 13:46 Neut # (Auto) 8.42 10^3/uL (1.8-7.7) H 03/11/24 13:46 Lymph # (Auto) 2.8 10^3/uL (0.8-4.8) 03/11/24 13:46 [place] # (Auto) 1.2 10^3/uL (0.2-0.9) H 03/11/24 13:46 Eos # (Auto) 0.2 10^3/uL (0.0-0.8) 03/11/24 13:46 Baso # (Auto) 0.1 10^3/uL (0.0-0.1) 03/11/24 13:46 Nucleated RBC % (auto) 0 % 03/11/24 13:46 Nucleated RBCs # 0.0 /100WBC 03/11/24 13:46 Sodium 136 mmol/L (136-145) 03/11/24 13:46 Potassium 3.0 mmol/L (3.5-5.1) L 03/11/24 13:46 Chloride 99 mmol/L (98-107) 03/11/24 13:46 Carbon Dioxide 21 mmol/L (22-29) L 03/11/24 13:46 Anion Gap 19.0 (5-19) 03/11/24 13:46 BUN 14 mg/dL (8-23) 03/11/24 13:46 Creatinine 1.0 mg/dL (0.5-0.9) H 03/11/24 13:46 GFR Calculation Not Reportable 03/11/24 13:46 Glucose 132 mg/dL (65-115) H 03/11/24 13:46 Calculated Osmolality 284 mOsm/kg (285-295) L 03/11/24 13:46 Calcium 8.9 mg/dL (8.5-10.5) 03/11/24 13:46 Magnesium 1.2 mg/dL (1.7-2.3) L 03/11/24 13:46 Total Bilirubin 0.6 mg/dL (0.15-1.2) 03/11/24 13:46 AST 23 U/L (0-32) 03/11/24 13:46 ALT 12 U/L (0-33) 03/11/24 13:46 Alkaline Phosphatase 125 U/L (35-105) H 03/11/24 13:46 Total Protein 7.9 g/dL (6.6-8.7) 03/11/24 13:46 Albumin 4.1 g/dL (3.5-5.2) 03/11/24 13:46 Globulin 3.8 g/dL (1.3-4.6) 03/11/24 13:46 Lipase 22 U/L (13-60) 03/11/24 13:46 TSH 7.60 uIU/mL (0.27-4.20) H 03/11/24 13:46 All radiology interpretation(s) finalized by discharge EKG Data EKG 1: I personally reviewed and interpreted this EKG as follows: EKG interpretation date: 03/11/24 EKG interpretation time: 14:27 Interpretation: atrial flutter rvr hr [address] elevation qrs 89 qtc 386 EKG 2: I personally reviewed and interpreted this EKG as follows: EKG interpretation date: 03/11/24 EKG interpretation time: 16:11 Interpretation: nsr hr [address] elevation qrs 94 qtc 435 Discharge Plan Discharge Patient Disposition: Home Clinical Impression: Abdominal pain, Vomiting, Palpitation Condition: Stable Prescriptions: New ondansetron 4 mg tablet,disintegrating 4 mg PO Q6H PRN (Reason: nausea and vomiting) Qty: 14 0RF No Action donepezil 10 mg tablet 10 mg PO QPM famciclovir 500 mg tablet 500 mg PO TID 7 Days Qty: 21 0RF hydrocodone-acetaminophen 5-325 mg tablet 1 tab PO Q6H PRN (Reason: pain) 5 Days Qty: 20 0RF amoxicillin-pot clavulanate 875-125 mg tablet 1 tab PO BID Qty: 20 0RF prednisone 20 mg tablet 20 mg PO BID Qty: 10 0RF albuterol sulfate 90 mcg/actuation HFA aerosol inhaler 2 puff inhalation QID PRN (Reason: shortness of breath or wheezing) Qty: 6.7 0RF mupirocin 2 % ointment 1 applic topical BID Qty: 15 0RF escitalopram oxalate [Lexapro] 10 mg tablet 10 mg PO DAILY Qty: 30 0RF hydroxyzine pamoate 25 mg capsule 25 mg PO BID PRN (Reason: itching) Qty: 60 0RF potassium chloride [Klor-Con M20] 20 mEq tablet,ER particles/crystals See Rx Instructions PO BID Qty: 36 0RF Rx Instructions: 1 tab BID X 3 days then once daily ferrous gluconate 324 mg (38 mg iron) tablet 324 mg PO BID Qty: 60 0RF Senna-S 8.6-50 mg tablet 1 tab-cap PO DAILY Qty: 10 0RF Protonix 20 mg tablet,delayed release (DR/EC) 20 mg PO BID Qty: 60 0RF atorvastatin 40 mg Tablet 40 mg PO QPM triamcinolone acetonide 0.1 % cream 1 applic TOPICAL TID PRN (Reason: Rash) levothyroxine 100 mcg Tablet 100 mcg PO QAM omeprazole 20 mg Capsule,Delayed Release(Dr/Ec) 20 mg PO BEDTIME Premarin 0.3 mg Tablet 0.3 mg PO QAM docusate sodium 100 mg Capsule 100 mg PO BID Qty: 20 0RF calcium carbonate-vitamin D3 600 mg-10 mcg (400 unit) Tablet 1 ea PO BID Qty: 30 0RF metoprolol tartrate 25 mg tablet 25 mg PO BID Qty: 60 0RF Discharge Orders: Discharge ED (Routine); Ordered 03/11/24 Ordered By: Dell Steele Referrals: Freddy Pugh MD [Primary Care Provider] - Benji Barnhart M.D [Physician] - 4-7 days Discharge Diet: Advance as tolerated Discharge Activity: Resume usual activity Patient Instructions: Acute Nausea and Vomiting (ED), Abdominal Pain (ED) Coding Level of Care Code ED [employer]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
[2024-03-11 14:47] VITALS: BP 138/78; PULSE 96; RESP 14; O2SAT 96
[2024-03-11] MEDS: ondansetron 2 mg/ML SDV 2 mL 4 MG IVP (14:47)
[2024-03-11] MEDS: potassium chloride ER 20 mEq Tablet 60 MEQ PO (14:47)
[2024-03-11] MEDS: sodium chloride 0.9% 1,000 ML 999 ML IV (14:47)
[2024-03-11 14:55] LABS: Magnesium 1.2 mg/dL (1.7-2.3)
[2024-03-11] MEDS: iohexol 350 mg/mL 500 mL Btl (per mL) IV (14:57)
--- NOTE | 2024-03-11 15:33 | XR_ITS ---
WS: [id number] Exam: XR chest 1V portable [id number] Date/Time of Exam: 03/11/2024 3:33 PM Reason For Exam: weakness Comparison 03/14/2023. Lungs are clear and fully inflated. Normal cardiomediastinal silhouette. No pleural effusions. Degene rative changes of the T-spine. XR/XR chest 1V portable [id number] IMPRESSION: 1. Negative chest.
--- NOTE | 2024-03-11 16:11 | ECG_ITS ---
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 Measurements Intervals [place] Rate: 91 P: 66 DC: 163 QRS: 51 QRSD: 94 T: 82 QT: 386 QTc: 477 Interpretive Statements SINUS RHYTHM MODERATE ST DEPRESSION [0.05+ mV ST DEPRESSION] Compared to ECG 03/11/2024 14:27:48 ST (T wave) deviation now present Atrial flutter no longer present T-wave abnormality no longer present Possible ischemia no longer present Electronically Signed On 03-11-2024 18:53:06 CDT by Benji Barnhart M.D. [id number]
--- NOTE | 2024-03-11 16:57 | DCPLANNER ---
messaged heart care for er f/u
[2024-03-11 17:09] VITALS: BP 154/79; PULSE 90; RESP 16; O2SAT 96
[2024-03-11 17:13] VITALS: BP 154/79; PULSE 90; RESP 16; O2SAT 96
--- NOTE | 2024-03-11 17:15 | PC.NURSE ---
iv discontinued prior to discharge
[2024-03-11 18:05] LABS: C.Diff PCR (Lab) NEGATIVE (Negative)
== END 2024-03-11 17:15 | disposition home or self-care (01) ==
PROVIDERS: Emergency Provider Emergency Medicine; PCP Internal Medicine
DX: R10.9 Unspecified abdominal pain (principal); F03.90 Unspecified dementia, unspecified severity, without behavioral disturbance, psychotic disturbance, mood disturbance, and anxiety; R53.1 Weakness; R11.2 Nausea with vomiting, unspecified; R19.7 Diarrhea, unspecified; R00.0 Tachycardia, unspecified
CPT/HCPCS: 36415; 71045; 74177; 80053; 82274; 83630; 83690; 83735; 84443; 85025; 87045; 87177; 87209; 87427; 87449; 87493; 93005; 96374; 99285; J2405; J7030

== ENCOUNTER → 2024-03-19 10:44 | Outpatient (BNVA) | payer MEDICARE, OTHER, SELFPAY | PROVIDERS: PCP Internal Medicine; Visit Provider Student in an Organized Health Care Education/Training Program | DX: Z87.81 Personal history of (healed) traumatic fracture (principal); Z09 Encounter for follow-up examination after completed treatment for conditions other than malignant neoplasm | CPT/HCPCS: 73502; 99213 ==

== ENCOUNTER 2024-03-21 12:25 | Observation (INO) | payer MEDICARE, OTHER, SELFPAY ==
[2024-03-21 12:26] VITALS: BP 162/67; PULSE 72; RESP 13; TEMP 36.6; O2SAT 94; BMI 30.2
--- NOTE | 2024-03-21 12:36 | ED_ITS ---
HPI - Abdominal Pain 2 General: Chief Complaint: Abdominal Pain Stated Complaint: abd pain Time Seen by Provider: 03/21/24 12:26 History of Present Illness: 73-year-old female with a history of hyp erlipidemia hypothyroidism and dementia who presents to the emergency room with epigastric abdominal pain, nausea and vomiting. Apparently this started this morning. No dysuria. No altered mental status. No focal motor deficits. No chest pain. No fevers. Related Data Home Medications Medication Instructions Recorded Confirmed atorvastatin 40 mg tablet 40 mg PO QPM 03/16/23 03/21/24 conjugated estrogens 0.3 mg tablet 0.3 mg PO QAM 03/16/23 03/21/24 (Premarin) levothyroxine 100 mcg tablet 100 mcg PO QAM 03/16/23 03/21/24 omeprazole 20 mg capsule,delayed 20 mg PO BEDTIME 03/16/23 03/21/24 release duloxetine 20 mg capsule,delayed 20 mg PO DAILY 03/21/24 03/21/24 release propranolol 20 mg tablet 20 mg PO BID 03/21/24 03/21/24 Previous Rx's Medication Instructions Recorded ferrous gluconate 324 mg (38 mg 324 mg PO BID #60 tabs 02/15/24 iron) tablet Allergies Allergy/AdvReac Type Severity Reaction Status Date / Time No Known Allergies Allergy Verified 03/21/24 12:40 Review of Systems 2 Narrative: Constitutional symptoms: Negative except as documented in HPI. Skin symptoms: Negative except as documented in HPI. Eye symptoms: Negative except as documented in HPI. ENMT symptoms: Negative except as documented in HPI. Respiratory symptoms: Negative except as documented in HPI. Cardiovascular symptoms: Negative except as documented in HPI. Gastrointestinal symptoms: Negative except as documented in HPI. Genitourinary symptoms: Negative except as documented in HPI. Musculoskeletal symptoms: Negative except as documented in HPI. Neurologic symptoms: Negative except as documented in HPI. Psychiatric symptoms: Negative except as documented in HPI. Endocrine symptoms: Negative except as documented in HPI. PFSH ED 2 PFSH: Medical History Hyperlipidemia Hypothyroidism History of hypothyroidism History of hyperlipidemia Subtrochanteric fracture of right femur Closed fracture of right hip Avulsion fracture of medial malleolus of right tibia Surgical History History of hysterectomy Family History Other Cancer Diabetes Social History Smoking and tobacco/nicotine status: never used tobacco/nicotine Alcohol intake: never Caregiver/support person: No Lives independently: Yes Household members: none Marital status: / Number of children: 1 service: No Current occupational status: retired Physical Exam 2 Narrative: EXAM NARRATIVE: General: Alert, no acute distress. Skin: Warm, dry. Head: Normocephalic, atraumatic. Neck: Supple, trachea midline. Eye: Extraocular movements are intact. Ears, nose, mouth and throat: mucosa moist. Cardiovascular: Regular, Normal peripheral perfusion. Respiratory: Lungs are clear to auscultation, respirations are non-labored, breath sounds are equal, Symmetrical chest wall expansion. Gastrointestinal: Soft, some epigastric tenderness to palpation, Non distended Musculoskeletal: Normal ROM, no deformity. Neurological: Alert and oriented, No focal neurological deficit observed. Psychiatric: Cooperative, appropriate mood & affect. Course 2 Vital Signs: Vital signs: Vital Signs Temperature 97.8 F 03/21/24 12:26 Pulse Rate 72 03/21/24 12:26 Respiratory Rate 13 03/21/24 12:26 Blood Pressure 162/67 03/21/24 12:26 Pulse Oximetry 94 03/21/24 12:26 Oxygen Delivery Me thod Room Air 03/21/24 12:26 MDM - Abdominal Pain Medical Decision Making Medical decision making: Differential diagnosis for this patient with nausea and vomiting including but not limited to and based on the above HPI, review of systems and physical exam: Urinary tract infection. Appendicitis. Cholecystis. colitis. small bowel obstruction. crohn's flare. pancreatitis. gastritis. peptic ulcer. cyclic vomiting. Viral illness. Influenza. COVID. - Workup - labwork and imaging ordered to evaluate, rule in and rule out above pathologies. Lab Review: Laboratory results were reviewed and interpreted by myself the emergency room physician. No leukocytosis. Stable anemia at 10.7. No renal failure. BUN/creatinine are 7 and 0.7. Glucose is mildly elevated at 161. Her potassium is low at 2.7. Urine has leukocyte esterase greater than 100 whites and nitrite positive I reviewed the patient's medical record. Reexamination: Patient remained slightly confused. I spoke with her daughter and is uncomfortable with sending her back home at this point she would like for her to be observed overnight. No focal motor deficits. No altered mental status. She is pleasantly confused. Consultation: I spoke with Dr. Lagos who is on-call for the hospitalist service. He agrees to observation. Assessment and plan: Urinary tract infection Metabolic encephalopathy Hypokalemia ?P.o. potassium. IV Rocephin. -I discussed the patient with the hospitalist on-call who is admitting the patient. - Discussed findings and plan with patient. Answered any questions. - All laboratory values were reviewed and interpreted personally by myself, the ER physician - Evaluation and treatment of this problem were appropriate in the emergency setting Lab Data 03/21/24 12:41 03/21/24 12:41 Labs/Radiology: Laboratory Results WBC 7.58 10^3/uL (3.29-11.43) 03/21/24 12:41 RBC 4.73 10^6/uL (3.85-5.65) 03/21/24 12:41 Hgb 10.70 g/dL (11.27-16.99) L 03/21/24 12:41 Hct 36.9 % (36-47) 03/21/24 12:41 MCV 78.0 fl (85-98) L 03/21/24 12:41 MCH 22.6 pg (27-33) L 03/21/24 12:41 MCHC 29.0 g/dL (30-55) L 03/21/24 12:41 RDW 25.0 % (12.1-15.1) H 03/21/24 12:41 Plt Count 270 10^3/cmm (157-399) 03/21/24 12:41 MPV 11.5 fL (7.4-10.4) H 03/21/24 12:41 Neut % (Auto) 72.8 % 03/21/24 12:41 Lymph % (Auto) 16.5 % 03/21/24 12:41 [place] % (Auto) 7.9 % 03/21/24 12:41 Eos % (Auto) 2.0 % 03/21/24 12:41 Baso % (Auto) 0.4 % 03/21/24 12:41 Neut # (Auto) 5.52 10^3/uL (1.8-7.7) 03/21/24 12:41 Lymph # (Auto) 1.3 10^3/uL (0.8-4.8) 03/21/24 12:41 [place] # (Auto) 0.6 10^3/uL (0.2-0.9) 03/21/24 12:41 Eos # (Auto) 0.2 10^3/uL (0.0-0.8) 03/21/24 12:41 Baso # (Auto) 0.0 10^3/uL (0.0-0.1) 03/21/24 12:41 Nucleated RBC % (auto) 0 % 03/21/24 12:41 Nucleated RBCs # 0.0 /100WBC 03/21/24 12:41 Sodium 140 mmol/L (136-145) 03/21/24 12:41 Potassium 2.7 mmol/L (3.5-5.1) L* 03/21/24 12:41 Chloride 101 mmol/L (98-107) 03/21/24 12:41 Carbon Dioxide 26 mmol/L (22-29) 03/21/24 12:41 Anion Gap 15.7 (5-19) 03/21/24 12:41 BUN 7 mg/dL (8-23) L 03/21/24 12:41 Creatinine 0.7 mg/dL (0.5-0.9) 03/21/24 12:41 GFR Calculation Not Reportable 03/21/24 12:41 Glucose 161 mg/dL (65-115) H 03/21/24 12:41 Calculated Osmolality 291 mOsm/kg (285-295) 03/21/24 12:41 Lactic Acid 1.1 mmol/L (0.5-2.2) 03/21/24 12:41 Calcium 7.7 mg/dL (8.5-10.5) L 03/21/24 12:41 Total Bilirubin 0.7 mg/dL (0.15-1.2) 03/21/24 12:41 AST 19 U/L (0-32) 03/21/24 12:41 ALT 9 U/L (0-33) 03/21/24 12:41 Alkaline Phosphatase 120 U/L (35-105) H 03/21/24 12:41 C-Reactive Protein 12.0 mg/L (0.0-4.9) H 03/21/24 12:41 Total Protein 6.7 g/dL (6.6-8.7) 03/21/24 12:41 Albumin 3.6 g/dL (3.5-5.2) 03/21/24 12:41 Globulin 3.1 g/dL (1.3-4.6) 03/21/24 12:41 Lipase 17 U/L (13-60) 03/21/24 12:41 Urine Color Dark yellow (Yellow) A 03/21/24 13:30 Urine Appearance Turbid (CLEAR) A 03/21/24 13:30 Urine pH 6.0 (5-7) 03/21/24 13:30 Ur Specific [place] 1.022 (1.005-1.030) 03/21/24 13:30 Urine Protein 2+ (Negative) A 03/21/24 13:30 Urine Glucose (UA) Negative (Normal) 03/21/24 13:30 Urine Ketones 1+ (Negative) H 03/21/24 13:30 Urine Blood 1+ (Negative) A 03/21/24 13:30 Urine Nitrate Positive (Negative) A 03/21/24 13:30 Urine Bilirubin Negative (Negative) 03/21/24 13:30 Urine Urobilinogen 1.0 mg/dL (Negative) 03/21/24 13:30 Ur Leukocyte Esterase 2+ (Negative) A 03/21/24 13:30 Urine RBC 3-5 /hpf (0-2) 03/21/24 13:30 Urine WBC >100 /hpf (0-5) H 03/21/24 13:30 Ur Squamous Epith Cells 0-5 /hpf (0-5) 03/21/24 13:30 Amorphous Sediment Not Reportable 03/21/24 13:30 Urine Bacteria 4+ /hpf (NONE) H 03/21/24 13:30 Hyaline Casts 3.71 /lpf 03/21/24 13:30 No radiology studies performed this visit Discharge Plan Discharge Patient Disposition: Admitted As Inpatient Clinical Impression: Urinary tract infection, Acute metabolic encephalopathy, Hypokalemia Condition: Stable Coding Level of Care Code 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
[2024-03-21 12:53] LABS: Basophils % 0.4 %; Eosinophils # 0.2 10^3/uL (0.0-0.8); Hematocrit 36.9 % (36-47); Lymphocytes # 1.3 10^3/uL (0.8-4.8); Lymphocytes % 16.5 %; Mean Corpuscular Hemoglobin 22.6 pg (27-33); Mean Platelet Volume 11.5 fL (7.4-10.4); Monocytes # 0.6 10^3/uL (0.2-0.9); Monocytes % 7.9 %; Neutrophils # 5.52 10^3/uL (1.8-7.7); Neutrophils % 72.8 %; Nucleated Red Blood Cells % 0 %; Platelet Count 270 10^3/cmm (157-399); Red Blood Count 4.73 10^6/uL (3.85-5.65); White Blood Count 7.58 10^3/uL (3.29-11.43)
[2024-03-21 13:00] LABS: Slide Review Slide Review Perform
[2024-03-21 13:05] LABS: Lactic Sepsis W/Reflex 1.1 mmol/L (0.5-2.2)
--- NOTE | 2024-03-21 13:20 | PC.PHAR ---
Went over med list with patient and daughter, daughter takes care of her medicine. she had me discontinue lots of her medications. she is currently only taking a few meds
[2024-03-21 13:42] LABS: Alanine Aminotransferase 9 U/L (0-33); Albumin Level 3.6 g/dL (3.5-5.2); Alkaline Phosphatase 120 U/L (35-105); Anion Gap 15.7 (5-19); Aspartate Amino Transferase 19 U/L (0-32); Blood Urea Nitrogen 7 mg/dL (8-23); Calcium 7.7 mg/dL (8.5-10.5); Carbon Dioxide 26 mmol/L (22-29); Chloride 101 mmol/L (98-107); Creatinine Clr Calc Pharmacy 53.9795; Globulin 3.1 g/dL (1.3-4.6); Glucose 161 mg/dL (65-115); Lipase 17 U/L (13-60); Osmolality Calculated 291 mOsm/kg (285-295); Sodium 140 mmol/L (136-145); Total Bilirubin 0.7 mg/dL (0.15-1.2); Total Protein 6.7 g/dL (6.6-8.7)
[2024-03-21 13:46] LABS: Bilirubin Urine Negative (Negative); Blood Urine 1+ (Negative); Glucose Urine UA Negative (Normal); Ketones Urine 1+ (Negative); Leukocyte Esterase Urine 2+ (Negative); Nitrate Urine Positive (Negative); Protein Urine 2+ (Negative); Specific Gravity, Urine 1.022 (1.005-1.030); Urine Appearance Turbid (CLEAR); Urine Color Dark Yellow (Yellow)
[2024-03-21 13:47] LABS: Potassium 2.7 mmol/L (3.5-5.1)
[2024-03-21 13:51] LABS: Bacteria Urine 4+ /hpf; Hyaline Casts Urine 3.71 /lpf; Squamous Epithelial Cell Urine 0-5 /hpf (0-5); WBC Urine >100 /hpf (0-5)
[2024-03-21 13:55] LABS: Add Urine Culture? Yes
[2024-03-21] MEDS: famotidine 20 mg/2 mL INJ 40 MG IVP (13:58)
[2024-03-21] MEDS: potassium chloride oral liq 20 mEq/15 mL UDC 40 MEQ PO (13:58)
--- NOTE | 2024-03-21 14:17 | XRR_ITS ---
PROCEDURE INFORMATION: Exam: XR Abdomen Exam date and time: 03/21/2024 2:31 PM Age: 73 years old Clinical indication: Abdominal pain; Additional info: Abd pain TECHNIQUE: Imaging protocol: Radiologic exam of the abdomen. Views: Frontal supine view of the abdomen. 1 View. COMPARISON: CT abdomen pelvis w con* [id number] 03/11/2024 2:53 PM FINDINGS: Gastrointestinal tract: Nonobstructive bowel gas pattern. No evidence of free air or pneumatosis. Bones/joints: No evidence of acute osseous abnormality. Degenerative changes of the lumbar spine noted. XR/XR abdomen 1V* [id number] IMPRESSION: 1. Nonobstructive bowel gas pattern.
[2024-03-21] MEDS: cefTRIAXone 1,000 mg SDV 1000 MG IVP (14:18)
[2024-03-21 14:32] VITALS: BP 131/74; PULSE 70; RESP 18; O2SAT 99
--- NOTE | 2024-03-21 15:37 | P.HP_ITS ---
Providers/Chief Complaint 2 Primary Care Provider: Freddy Pugh MD Chief Complaint: abd pain History of Present Illness Venita Oconnell is a 73 year old female with a past medical history of dementia, hypothyroidism, hyperlipidemia, who presents to [facility] due to increased confusion, abdominal pain, nausea, vomiting. According to patient's daughter at bedside patient has dementia, she lives at home by herself but family overs are nearby, she is dependent on family members, for her mobility, she does not drive, family large bring her meals, pay her bills, she can ambulate on her own, she did have a fall about 2 weeks ago, no significant head trauma, she has never left the gas on, no history of behavioral issues, but daughter does tell me that she has become more confused recently that her normal self, currently she is alert to person, not to place, not to time she does follow commands and is pleasant, she has no particular complaints daughter tells me that today she has been complaining of epigastric discomfort, nausea, vomiting she did not eat breakfast this morning she does not remember what she had for dinner last night, she knows her birthdate she knows that she looks and altered but does not remember her address, Review of Systems 2 Const: Denies: fever(s) Card: Denies: chest pain Resp: Denies: dyspnea Medications/Allergies Home Medications Medication Instructions Recorded Confirmed Last Taken Type atorvastatin 40 mg tablet 40 mg PO QPM 03/16/23 03/21/24 03/20/24 History conjugated estrogens 0.3 mg tablet 0.3 mg PO QAM 03/16/23 03/21/24 03/21/24 History (Premarin) levothyroxine 100 mcg tablet 100 mcg PO QAM 03/16/23 03/21/24 03/21/24 History omeprazole 20 mg capsule,delayed 20 mg PO BEDTIME 03/16/23 03/21/24 03/20/24 History release ferrous gluconate 324 mg (38 mg 324 mg PO BID #60 tabs 02/15/24 03/21/24 03/21/24 Rx iron) tablet duloxetine 20 mg capsule,delayed 20 mg PO DAILY 03/21/24 03/21/24 03/21/24 History release propranolol 20 mg tablet 20 mg PO BID 03/21/24 03/21/24 03/20/24 History Allergies Allergy/AdvReac Type Severity Reaction Status Date / Time No Known Allergies Allergy Verified 03/21/24 12:40 PFSH Acute 2 PFSH: Medical History Hyperlipidemia Hypothyroidism History of hypothyroidism History of hyperlipidemia Subtrochanteric fracture of right femur Closed fracture of right hip Avulsion fracture of medial malleolus of right tibia Surgical History History of hysterectomy Family History Other Cancer Diabetes Social History Smoking and tobacco/nicotine status: never used tobacco/nicotine Alcohol intake: never Caregiver/support person: No Lives independently: Yes Household members: none Marital status: / Number of children: 1 service: No Current occupational status: retired Vitals/I&O/Wt Last Vital Signs Temp 97.8 F 03/21/24 12:26 Pulse 70 03/21/24 14:32 Resp 18 03/21/24 14:32 BP 131/74 03/21/24 14:32 Pulse Ox 99 03/21/24 14:32 O2 Del Method Room Air 03/21/24 14:32 Weight last 48 hrs Weight 70.307 kg Physical Exam 2 Const: COMMON NORMALS: no acute distress ORIENTATION/CONSCIOUSNESS: Yes awake and Yes oriented to person; not oriented to place and not oriented to time Resp: COMMON NORMALS: normal respiratory effort, No retractions, No use of accessory muscles and clear to auscultation bilaterally AUSCULTATION: clear to auscultation bilaterally Cardio: COMMON NORMALS: no JVD, regular rate, regular rhythm, S1 normal heart sound present and S2 normal heart sound present RATE: regular rate RHYTHM: regular rhythm HEART SOUNDS: S1 normal heart sound present and S2 normal heart sound present GI: COMMON NORMALS: Normal to inspection, nondistended, normoactive bowel sounds present, Soft to palpation and non-tender Extremity: COMMON NORMALS: no pedal edema Neuro: COMMON NORMALS: patient oriented x3, CN's II-XII intact bilaterally and moves all extremities Psych: COMMON NORMALS: mental status grossly normal Data 03/21/24 12:41 03/21/24 12:41 A&P Assessment and plan (1) AMS (altered mental status): (2) Hyperlipidemia: (3) Hypothyroidism: (4) Hypokalemia: (5) Urinary tract infection: Plan Altered mental status ? Secondary to UTI ?continue Rocephin -Has underlying dementia -History of fall CT head Abdominal pain, nausea, vomiting ? KUB ordered ? Monitor blood work UTI Continue Rocephin Hypokalemia, replace p.o. DNR/DNI, confirmed with daughter and patient at bedside SCDs for DVT prophylaxis Attestations 2 Medical Necessity Statement*: Patient requires hospitalization, outpatient observation, for altered mental status, UTI Coding Level of Care Code Acute Code for Chg Fwd Diagnoses AMS (altered mental status) R41.82 Hyperlipidemia E78.5 Hypothyroidism E03.9 Hypokalemia E87.6 Urinary tract infection N39.0
--- NOTE | 2024-03-21 16:15 | CTR_ITS ---
PROCEDURE INFORMATION: Exam: CT Head Without Contrast Exam date and time: 03/21/2024 4:48 PM Age: 73 years old Clinical indication: Altered mental status/memory loss; Additional info: AMS TECHNIQUE: Imaging protocol: Computed tomography of the head without contrast. Radiation optimization: All CT scans at this facility use at least one of these dose optimization techniques: automated exposure control; mA and/or kV adjustment per patient size (includes targeted exams where dose is matched to clinical indication); or iterative reconstruction. COMPARISON: MR head wo con* [id number] 12/28/2023 8:48 AM RADIATION DOSE METRICS: Total DLP (mGy-cm): 1016 FINDINGS: Brain: Sequela of moderate chronic microvascular ischemic changes with periventricular and deep white matter hypoattenuation. [place]-white differentiation is otherwise maintained. No evidence of intra-axial or extra-axial hemorrhage. No mass effect or midline shift. Basilar cisterns are patent. Cerebral ventricles: No hydrocephalus. Paranasal sinuses: Complete opacification of the visualized paranasal sinuses, including the maxillary, ethmoid and sphenoid sinuses, similar to prior MRI from December 2023 Mastoid air cells: The visualized mastoids and middle ears are clear. Bones: Calvarium is intact. No evidence of acute fracture. Soft tissues: No gross soft tissue abnormality. CT/CT head wo con* [id number] IMPRESSION: 1. No acute intracranial abnormality. 2. Paranasal sinus disease. Follow-up ENT evaluation is recommended.
[2024-03-21 16:36] VITALS: BP 136/68; PULSE 74; RESP 17; O2SAT 96
[2024-03-21 16:58] VITALS: BP 136/68; PULSE 74; RESP 17; O2SAT 96
[2024-03-21 18:24] LABS: Anion Gap 15.2 (5-19); Blood Urea Nitrogen 6 mg/dL (8-23); Calcium 7.9 mg/dL (8.5-10.5); Carbon Dioxide 28 mmol/L (22-29); Chloride 103 mmol/L (98-107); Creatinine Clr Calc Pharmacy 53.9795; Glucose 107 mg/dL (65-115); Osmolality Calculated 294 mOsm/kg (285-295); Potassium 3.2 mmol/L (3.5-5.1); Sodium 143 mmol/L (136-145)
[2024-03-21 18:28] LABS: Magnesium 0.9 mg/dL (1.7-2.3)
[2024-03-21 19:21] LABS: Estmated Average Glucose 111; Hemoglobin A1C 5.5 % (4.0-6.0)
[2024-03-21 19:32] LABS: Chol HDL Ratio 2.76 mg/dL (0.0-4.40); Cholesterol 116 mg/dL (0-200); HDL Cholesterol 42 mg/dL (60-100); LDL Cholesterol Calculated 58 mg/dL (50-129); LDL HDL Ratio 1.38 RATIO (0.00-3.22); Thyroid Stimulating Hormone 0.61 uIU/mL (0.27-4.20); Triglycerides 80 mg/dL (0-150)
[2024-03-21 20:00] VITALS: BP 138/56; PULSE 83; RESP 17; TEMP 36.7; O2SAT 94
[2024-03-21] MEDS: haloperidol inj 5 mg/mL INJ 1 mL 2 MG IM (20:10)
[2024-03-21] MEDS: ferrous gluconate 324 mg Tablet PO (21:11)
[2024-03-21] MEDS: propranolol 20 mg Tablet PO (21:11)
[2024-03-21] MEDS: atorvastatin 40 mg Tablet PO (21:12)
[2024-03-21] MEDS: enoxaparin 40 mg/0.4 mL Syringe SUBCUT (21:13)
[2024-03-21] MEDS: pantoprazole 40 mg SDV IVP (21:15)
[2024-03-21] MEDS: magnesium sulfate premix 4 GM/100 ML PREMIX IV (23:11)
[2024-03-21] MEDS: potassium chloride ER 20 mEq Tablet 40 MEQ PO (23:11)
[2024-03-22] VITALS: BP 145/73; PULSE 85; RESP 17; TEMP 37.1; O2SAT 94
[2024-03-22 01:46] VITALS: O2SAT 95
[2024-03-22 04:00] VITALS: BP 121/75; PULSE 87; RESP 17; TEMP 37; O2SAT 91
[2024-03-22 05:16] LABS: Basophils # 0.1 10^3/uL (0.0-0.1); Basophils % 0.6 %; Eosinophils # 0.2 10^3/uL (0.0-0.8); Eosinophils % 1.9 %; Hematocrit 36.4 % (36-47); Lymphocytes # 1.5 10^3/uL (0.8-4.8); Lymphocytes % 17.2 %; Mean Corpuscular HGB Conc 28.3 g/dL (30-55); Mean Corpuscular Hemoglobin 22.3 pg (27-33); Mean Corpuscular Volume 78.8 fl (85-98); Mean Platelet Volume 11.9 fL (7.4-10.4); Monocytes # 0.8 10^3/uL (0.2-0.9); Monocytes % 9.6 %; Neutrophils # 6.12 10^3/uL (1.8-7.7); Neutrophils % 70.1 %; Nucleated Red Blood Cells % 0.3 %; Platelet Count 320 10^3/cmm (157-399); Red Blood Count 4.62 10^6/uL (3.85-5.65); Red Cell Distribution Width 25.2 % (12.1-15.1); White Blood Count 8.73 10^3/uL (3.29-11.43)
[2024-03-22 05:30] LABS: Partial Thromboplastin Time 29.7 SECONDS (23.9-36.7)
[2024-03-22 05:36] LABS: Anion Gap 12.9 (5-19); Blood Urea Nitrogen 5 mg/dL (8-23); Calcium 7.8 mg/dL (8.5-10.5); Carbon Dioxide 28 mmol/L (22-29); Chloride 103 mmol/L (98-107); Creatinine Clr Calc Pharmacy 53.7321; Glucose 115 mg/dL (65-115); Osmolality Calculated 288 mOsm/kg (285-295); Potassium 3.9 mmol/L (3.5-5.1); Sodium 140 mmol/L (136-145)
[2024-03-22] MEDS: levothyroxine 100 mcg Tablet PO (06:07)
[2024-03-22 07:41] LABS: Magnesium 2.5 mg/dL (1.7-2.3)
[2024-03-22 08:00] VITALS: BP 145/77; PULSE 84; RESP 16; TEMP 36.9; O2SAT 94
[2024-03-22] MEDS: duloxetine 20 mg Capsule PO (09:16)
[2024-03-22] MEDS: phosphorus 250 mg Tablet PO (09:16)
[2024-03-22] MEDS: propranolol 20 mg Tablet PO (09:16)
[2024-03-22] MEDS: ferrous gluconate 324 mg Tablet PO (09:16)
[2024-03-22] MEDS: magnesium lactate 84 mg Tablet PO (09:16)
[2024-03-22] MEDS: cefTRIAXone 1,000 mg SDV 1000 MG IVP (11:31)
[2024-03-22 12:00] VITALS: BP 114/69; PULSE 73; RESP 18; TEMP 36.9; O2SAT 92
--- NOTE | 2024-03-22 12:54 | PM.DCS ---
Discharge Providers Date of Admission: 03/21/24 16:34 Date of Discharge: March 22, 2024 Attending Provider at Admission: Diogo Sanchez MD Attending Provider at Discharge: Diogo Sanchez MD Primary Care Provider: Freddy Pugh MD Diagnoses at Discharge Discharge Diagnosis (1) AMS (altered mental status): Status: Acute (2) Hyperlipidemia: Status: Acute (3) Hypothyroidism: Status: Acute (4) Hypokalemia: Status: Acute (5) Urinary tract infection: Status: Acute Reason for Visit Reason for Visit: abd pain Hospital Course Hospital Course Venita Oconnell is a 73 year old female with a past medical history of dementia, hypothyroidism, hyperlipidemia, who presents to [facility] due to increased confusion, abdominal pain, nausea, vomiting. According to patient's daughter at bedside patient has dementia, she lives at home by herself but family overs are nearby, she is dependent on family members, for her mobility, she does not drive, family large bring her meals, pay her bills, she can ambulate on her own, she did have a fall about 2 weeks ago, no significant head trauma, she has never left the gas on, no history of behavioral issues, but daughter does tell me that she has become more confused recently that her normal self, currently she is alert to person, not to place, not to time she does follow commands and is pleasant, she has no particular complaints daughter tells me that today she has been complaining of epigastric discomfort, nausea, vomiting she did not eat breakfast this morning she does not remember what she had for dinner last night, she knows her birthdate she knows that she looks and altered but does not remember her address, Patient was admitted to [facility] for abdominal pain, nausea, vomiting, altered mental status secondary to UTI, head CT no acute findings, managed on IV antibiotics, received potassium replacement therapy, overall clinically improved. On discharge she will be discharged on Levaquin for 5 remaining days, if any recurrent fevers, changes in mentation, please come back to the emergency room Patient has a history of dementia, during the hospitalization she did have episodes of confusion, especially during the night, likely secondary to to ing, will discharge her on Zyprexa 5 mg at bedtime. On discharge patient is alert to person, to place, not to time she follows all commands, no episodes of agitation during my examination, but does have short-term memory loss and she does not remember her address, which according to family yesterday, was about at her baseline Physical Exam Const: COMMON NORMALS: no acute distress ORIENTATION/CONSCIOUSNESS: Yes awake and Yes oriented to person; not oriented to place and not oriented to time Resp: COMMON NORMALS: normal respiratory effort, No retractions, No use of accessory muscles and clear to auscultation bilaterally AUSCULTATION: clear to auscultation bilaterally Cardio: COMMON NORMALS: regular rate, regular rhythm, S1 normal heart sound present and S2 normal heart sound present RATE: regular rate RHYTHM: regular rhythm HEART SOUNDS: S1 normal heart sound present and S2 normal heart sound present GI: COMMON NORMALS: Normal to inspection, nondistended, normoactive bowel sounds present and non-tender Extremity: COMMON NORMALS: no pedal edema Neuro: SENSORIUM/ORIENTATION: Yes oriented to person, No oriented to place and No oriented to time Psych: COMMON NORMALS: mental status grossly normal Discharge Data Studies Completed and Pending Completed Studies During Hospitalization Category Date Time Status CT head wo con* [id number] Stat Cat Scan 03/21/24 16:15 Completed XR abdomen 1V* [id number] Stat Exams 03/21/24 14:17 Completed Pending at discharge Category Date Time Status Blood Culture Routine Lab 03/21/24 18:41 Ordered Partial Thromboplastin Time AM LABS Lab 03/23/24 04:00 Ordered Partial Thromboplastin Time AM LABS Lab 03/24/24 04:00 Ordered Urine Culture Stat Lab 03/21/24 13:30 Results Radiology Impressions Abdomen X-Ray 03/21/24 14:17 IMPRESSION: 1. Nonobstructive bowel gas pattern. Head CT 03/21/24 16:15 IMPRESSION: 1. No acute intracranial abnormality. 2. Paranasal sinus disease. Follow-up ENT evaluation is recommended. Laboratory Results WBC 8.73 10^3/uL (3.29-11.43) 03/22/24 04:11 RBC 4.62 10^6/uL (3.85-5.65) 03/22/24 04:11 Hgb 10.30 g/dL (11.27-16.99) L 03/22/24 04:11 Hct 36.4 % (36-47) 03/22/24 04:11 MCV 78.8 fl (85-98) L 03/22/24 04:11 MCH 22.3 pg (27-33) L 03/22/24 04:11 MCHC 28.3 g/dL (30-55) L 03/22/24 04:11 RDW 25.2 % (12.1-15.1) H 03/22/24 04:11 Plt Count 320 10^3/cmm (157-399) 03/22/24 04:11 MPV 11.9 fL (7.4-10.4) H 03/22/24 04:11 Neut % (Auto) 70.1 % 03/22/24 04:11 Lymph % (Auto) 17.2 % 03/22/24 04:11 Robertson % (Auto) 9.6 % 03/22/24 04:11 Eos % (Auto) 1.9 % 03/22/24 04:11 Baso % (Auto) 0.6 % 03/22/24 04:11 Neut # (Auto) 6.12 10^3/uL (1.8-7.7) 03/22/24 04:11 Lymph # (Auto) 1.5 10^3/uL (0.8-4.8) 03/22/24 04:11 Robertson # (Auto) 0.8 10^3/uL (0.2-0.9) 03/22/24 04:11 Eos # (Auto) 0.2 10^3/uL (0.0-0.8) 03/22/24 04:11 Baso # (Auto) 0.1 10^3/uL (0.0-0.1) 03/22/24 04:11 Nucleated RBC % (auto) 0.3 % 03/22/24 04:11 Nucleated RBCs # 0.0 /100WBC 03/22/24 04:11 APTT 29.7 SECONDS (23.9-36.7) 03/22/24 04:11 Sodium 140 mmol/L (136-145) 03/22/24 04:11 Potassium 3.9 mmol/L (3.5-5.1) 03/22/24 04:11 Chloride 103 mmol/L (98-107) 03/22/24 04:11 Carbon Dioxide 28 mmol/L (22-29) 03/22/24 04:11 Anion Gap 12.9 (5-19) 03/22/24 04:11 BUN 5 mg/dL (8-23) L 03/22/24 04:11 Creatinine 0.7 mg/dL (0.5-0.9) 03/22/24 04:11 GFR Calculation Not Reportable 03/22/24 04:11 Glucose 115 mg/dL (65-115) 03/22/24 04:11 Estimat Average Glucose 111 03/21/24 18:41 Hemoglobin A1c 5.5 % (4.0-6.0) 03/21/24 18:41 Calculated Osmolality 288 mOsm/kg (285-295) 03/22/24 04:11 Lactic Acid 1.1 mmol/L (0.5-2.2) 03/21/24 12:41 Calcium 7.8 mg/dL (8.5-10.5) L 03/22/24 04:11 Phosphorus 2.0 mg/dL (2.5-4.5) L 03/22/24 04:11 Magnesium 2.5 mg/dL (1.7-2.3) H 03/22/24 04:11 Total Bilirubin 0.7 mg/dL (0.15-1.2) 03/21/24 12:41 AST 19 U/L (0-32) 03/21/24 12:41 ALT 9 U/L (0-33) 03/21/24 12:41 Alkaline Phosphatase 120 U/L (35-105) H 03/21/24 12:41 C-Reactive Protein 12.0 mg/L (0.0-4.9) H 03/21/24 12:41 Total Protein 6.7 g/dL (6.6-8.7) 03/21/24 12:41 Albumin 3.6 g/dL (3.5-5.2) 03/21/24 12:41 Globulin 3.1 g/dL (1.3-4.6) 03/21/24 12:41 Triglycerides 80 mg/dL (0-150) 03/21/24 18:41 Cholesterol 116 mg/dL (0-200) 03/21/24 18:41 LDL Cholesterol, Calc 58 mg/dL (50-129) 03/21/24 18:41 HDL Cholesterol 42 mg/dL (60-100) L 03/21/24 18:41 LDL/HDL Ratio 1.38 RATIO (0.00-3.22) 03/21/24 18:41 Cholesterol/HDL Ratio 2.76 mg/dL (0.0-4.40) 03/21/24 18:41 Lipase 17 U/L (13-60) 03/21/24 12:41 TSH 0.61 uIU/mL (0.27-4.20) 03/21/24 18:41 Urine Color Dark yellow (Yellow) A 03/21/24 13:30 Urine Appearance Turbid (CLEAR) A 03/21/24 13:30 Urine pH 6.0 (5-7) 03/21/24 13:30 Ur Specific [place] 1.022 (1.005-1.030) 03/21/24 13:30 Urine Protein 2+ (Negative) A 03/21/24 13:30 Urine Glucose (UA) Negative (Normal) 03/21/24 13:30 Urine Ketones 1+ (Negative) H 03/21/24 13:30 Urine Blood 1+ (Negative) A 03/21/24 13:30 Urine Nitrate Positive (Negative) A 03/21/24 13:30 Urine Bilirubin Negative (Negative) 03/21/24 13:30 Urine Urobilinogen 1.0 mg/dL (Negative) 03/21/24 13:30 Ur Leukocyte Esterase 2+ (Negative) A 03/21/24 13:30 Urine RBC 3-5 /hpf (0-2) 03/21/24 13:30 Urine WBC >100 /hpf (0-5) H 03/21/24 13:30 Ur Squamous Epith Cells 0-5 /hpf (0-5) 03/21/24 13:30 Amorphous Sediment Not Reportable 03/21/24 13:30 Urine Bacteria 4+ /hpf (NONE) H 03/21/24 13:30 Hyaline Casts 3.71 /lpf 03/21/24 13:30 Vitals Last Vital Signs Temp 98.4 F 03/22/24 08:00 Pulse 84 03/22/24 08:00 Resp 16 03/22/24 08:00 BP 145/77 03/22/24 08:00 Pulse Ox 94 03/22/24 08:00 O2 Del Method Room Air 03/22/24 08:00 Discharge Plan Discharge Patient Disposition: Xfer SNF Condition: Stable Prescriptions: New olanzapine [Zyprexa Zydis] 5 mg tablet,disintegrating 5 mg PO BEDTIME 30 Days Qty: 30 0RF levofloxacin 750 mg tablet 750 mg PO DAILY 5 Days Qty: 5 0RF Continued ferrous gluconate 324 mg (38 mg iron) tablet 324 mg PO BID Qty: 60 0RF atorvastatin 40 mg Tablet 40 mg PO QPM levothyroxine 100 mcg Tablet 100 mcg PO QAM omeprazole 20 mg Capsule,Delayed Release(Dr/Ec) 20 mg PO BEDTIME Premarin 0.3 mg Tablet 0.3 mg PO QAM propranolol 20 mg tablet 20 mg PO BID duloxetine 20 mg capsule,delayed release(DR/EC) 20 mg PO DAILY Discharge Orders: Discharge Order (Routine); Ordered 03/22/24 Ordered By: Diogo Sanchez Referrals: Freddy Pugh MD [Primary Care Provider] - Discharge Diet: Cardiac Discharge Activity: Resume usual activity Patient Instructions: Pain Management Discharge Attestations Time Spent in Discharge Care*: greater than 30 min Quality Metrics Clinical Quality Measures [ No reported AMI, CVA or VTE this stay] Coding Level of Care Code 97961 Total time (in minutes) for Discharge: 45 Diagnoses AMS (altered mental status) R41.82 Hyperlipidemia E78.5 Hypothyroidism E03.9 Hypokalemia E87.6 Urinary tract infection N39.0
== END 2024-03-22 15:28 | disposition home or self-care (01) ==
LOC: ER 14:25 → MEDSURG 16:34
PROVIDERS: Admitting Provider Family Medicine; Emergency Provider Emergency Medicine; PCP Internal Medicine; Visit Provider Family Medicine
DX: N39.0 Urinary tract infection, site not specified (principal); E78.5 Hyperlipidemia, unspecified; E03.9 Hypothyroidism, unspecified; E87.6 Hypokalemia; F03.90 Unspecified dementia, unspecified severity, without behavioral disturbance, psychotic disturbance, mood disturbance, and anxiety
CPT/HCPCS: 36415; 70450; 74018; 80048; 80053; 80061; 81001; 83036; 83605; 83690; 83735; 84100; 84443; 85025; 85730; 86140; 87040; 87077; 87086; 87186; 94664; 96372; 96374; 96375; 99285; G0378; J0696; J1630; J1650; J2470; J3475; J3490

== ENCOUNTER 2024-04-18 15:44 | Outpatient (CLI) | payer MEDICARE, OTHER, SELFPAY | END 2024-04-18 15:45 | disposition home or self-care (01) | PROVIDERS: PCP Internal Medicine; Visit Provider Family Medicine | DX: N39.0 Urinary tract infection, site not specified (principal) | CPT/HCPCS: 81001 ==

== ENCOUNTER 2024-04-20 11:56 | Outpatient (CLI) | payer MEDICARE, OTHER, SELFPAY ==
[2024-04-20 12:09] LABS: Bilirubin Urine Negative (Negative); Blood Urine Negative (Negative); Glucose Urine UA Negative (Normal); Ketones Urine Negative (Negative); Leukocyte Esterase Urine 3+ (Negative); Nitrate Urine Positive (Negative); Protein Urine Negative (Negative); Specific Gravity, Urine 1.009 (1.005-1.030); Urine Appearance Cloudy (CLEAR); Urine Color Yellow (Yellow); pH Urine 6.5 (5-7)
[2024-04-20 12:12] LABS: Add Urine Microscopic? YES; Bacteria Urine 4+ /hpf; Hyaline Casts Urine 1.21 /lpf; RBC Urine 0-2 /hpf (0-2); Squamous Epithelial Cell Urine 0-5 /hpf (0-5); WBC Urine >100 /hpf (0-5)
== END 2024-04-20 11:57 | disposition home or self-care (01) ==
LOC: LAB 11:57
PROVIDERS: PCP Internal Medicine; Visit Provider Family Medicine
DX: N39.0 Urinary tract infection, site not specified (principal)
CPT/HCPCS: 81001; 87077; 87086; 87186

== ENCOUNTER 2024-07-23 08:43 | Outpatient (CLI) | payer MEDICARE, OTHER, SELFPAY ==
[2024-07-23 09:03] LABS: Bilirubin Urine Negative (Negative); Blood Urine Trace (Negative); Glucose Urine UA Negative (Normal); Ketones Urine Trace (Negative); Leukocyte Esterase Urine 2+ (Negative); Nitrate Urine Positive (Negative); Protein Urine 1+ (Negative); Specific Gravity, Urine 1.017 (1.005-1.030); Urine Appearance Turbid (CLEAR); Urine Color Yellow (Yellow); Urobilinogen Urine 0.2 mg/dL (Negative)
[2024-07-23 09:09] LABS: Add Urine Microscopic? YES; Bacteria Urine 4+ /hpf; Hyaline Casts Urine 10.58 /lpf; WBC Urine >100 /hpf (0-5)
[2024-07-23 09:28] LABS: UA Slide Review UA Slide Review Perf
== END 2024-07-23 08:44 | disposition home or self-care (01) ==
PROVIDERS: PCP Internal Medicine; Visit Provider Family Medicine
DX: N39.0 Urinary tract infection, site not specified (principal)
CPT/HCPCS: 81001; 87086

== ENCOUNTER 2024-08-10 09:22 | Outpatient (CLI) | payer MEDICARE, OTHER, SELFPAY ==
[2024-08-10 09:36] LABS: Basophils # 0.1 10^3/uL (0.0-0.1); Eosinophils # 0.3 10^3/uL (0.0-0.8); Eosinophils % 5.1 %; Hematocrit 39.4 % (36-47); Lymphocytes # 1.7 10^3/uL (0.8-4.8); Lymphocytes % 27.8 %; Mean Corpuscular HGB Conc 32.2 g/dL (30-55); Mean Corpuscular Hemoglobin 30.5 pg (27-33); Mean Corpuscular Volume 94.7 fl (85-98); Monocytes # 0.5 10^3/uL (0.2-0.9); Monocytes % 7.9 %; Neutrophils # 3.61 10^3/uL (1.8-7.7); Neutrophils % 57.9 %; Nucleated Red Blood Cells % 0 %; Platelet Count 233 10^3/cmm (157-399); Red Blood Count 4.16 10^6/uL (3.85-5.65); Red Cell Distribution Width 14.2 % (12.1-15.1); White Blood Count 6.23 10^3/uL (3.29-11.43)
[2024-08-10 09:48] LABS: Estmated Average Glucose 126
[2024-08-10 09:53] LABS: Alanine Aminotransferase 6 U/L (0-33); Albumin Level 3.6 g/dL (3.5-5.2); Alkaline Phosphatase 87 U/L (35-105); Anion Gap 14.6 (5-19); Aspartate Amino Transferase 14 U/L (0-32); Blood Urea Nitrogen 5 mg/dL (8-23); Carbon Dioxide 31 mmol/L (22-29); Chloride 104 mmol/L (98-107); Chol HDL Ratio 2.74 mg/dL (0.0-4.40); Cholesterol 197 mg/dL (0-200); Glucose 116 mg/dL (65-115); HDL Cholesterol 72 mg/dL (60-100); LDL Cholesterol Calculated 92 mg/dL (50-129); LDL HDL Ratio 1.28 RATIO (0.00-3.22); Osmolality Calculated 298 mOsm/kg (285-295); Potassium 4.6 mmol/L (3.5-5.1); Sodium 145 mmol/L (136-145); Total Bilirubin 0.4 mg/dL (0.15-1.2); Total Protein 6.6 g/dL (6.6-8.7); Triglycerides 165 mg/dL (0-150)
[2024-08-10 10:18] LABS: NT Pro B Type Natriuretic Pept 165 pg/mL (0-450); Thyroid Stimulating Hormone 16.94 uIU/mL (0.27-4.20)
== END 2024-08-10 09:23 | disposition home or self-care (01) ==
PROVIDERS: PCP Internal Medicine; Visit Provider Family Medicine
DX: I10 Essential (primary) hypertension (principal); R73.09 Other abnormal glucose; R06.00 Dyspnea, unspecified
CPT/HCPCS: 80053; 80061; 83036; 83880; 84443; 85025

== ENCOUNTER 2024-12-28 10:47 | Outpatient (CLI) | payer MEDICARE, OTHER, SELFPAY ==
[2024-12-28 13:04] LABS: Free T4 Free Thyroxine 1.25 ng/dL (0.82-1.77); Thyroid Stimulating Hormone 5.38 uIU/mL (0.27-4.20)
== END 2024-12-28 10:48 | disposition home or self-care (01) ==
LOC: LAB 10:51
PROVIDERS: PCP Internal Medicine; Visit Provider Family Medicine
DX: E11.9 Type 2 diabetes mellitus without complications (principal)
CPT/HCPCS: 84439; 84443

== ENCOUNTER 2025-02-25 11:12 | Outpatient (CLI) | payer MEDICARE, OTHER, SELFPAY ==
[2025-02-25 11:24] LABS: Glucose Urine UA Negative (Normal); Nitrate Urine Positive (Negative); Specific Gravity, Urine 1.005 (1.005-1.030)
[2025-02-25 11:27] LABS: Add Urine Microscopic? YES
== END 2025-02-25 11:13 | disposition home or self-care (01) ==
PROVIDERS: PCP Internal Medicine; Visit Provider Family Medicine
DX: N39.0 Urinary tract infection, site not specified (principal)
CPT/HCPCS: 81001; 87077; 87086; 87186

== ENCOUNTER 2025-04-07 08:44 | Emergency (ER) | payer MEDICARE, OTHER, SELFPAY ==
[2025-04-07 08:45] VITALS: BP 126/65; PULSE 78; RESP 16; TEMP 36.6; O2SAT 93; BMI 27.3
--- NOTE | 2025-04-07 08:48 | XR_ITS ---
WS: [id number] Exam: XR chest 1V portable [id number] Date/Time of Exam: 04/07/2025 8:50 AM Reason For Exam: ams Comparison 03/11/2024. The lungs are fully inflated and clear. Normal cardiomediastinal silhouette and regional bony elements. No pleural effusion. XR/XR chest 1V portable [id number] IMPRESSION: 1. No acute cardiopulmonary finding.
--- NOTE | 2025-04-07 08:48 | CT_ITS ---
WS: [id number] CT HEAD NONCONTRAST HISTORY: fall TECHNIQUE: Contiguous axial imaging performed through the brain. Bone and soft tissue windows. Sagittal and coronal reformats reviewed. All CT scans at [facility] use at least one of these dose optimization techniques: automated exposure control; mA and/or kV adjustment per patient size (includes targeted exams where dose is matched to clinical indication); or iterative reconstruction. DLP: 1788.24 mGy.cm COMPARISON: 03/21/2024 Motion artifact on several images. No acute intracranial hemorrhage, midline shift or mass effect. Moderate atrophy and advanced small vessel changes. Motion artifact is obscuring fine detail. Small areas of hemorrhage or extra-axial blood would be difficult to exclude. Ventricles: Mildly prominent ventricles and extra-axial spaces on the basis of atrophy. No inferior displacement of the cerebellar tonsils. Paranasal sinuses: Complete opacification of the maxillary and anterior ethmoid air cells and frontal sinuses. Similar to the prior study. Improved aeration of the sphenoid sinuses. Mastoid air cells: Well pneumatized. Calvarium and scalp: No displaced skull fracture. There is significant motion artifact decreasing sensitivity for subtle fractures. Small contusion centered over the RIGHT frontal bone. CT/CT head wo con* [id number] IMPRESSION: 1. Examination is compromised by motion artifact. 2. No large areas of hemorrhage or edema. 3. Moderate atrophy with advanced small vessel changes. 4. Small soft tissue contusion centered over the RIGHT frontal bone.
--- NOTE | 2025-04-07 08:48 | CT_ITS ---
WS: [id number] CT FACIAL BONES HISTORY: fall TECHNIQUE: Images obtained from the supraorbital location through the mandible. Soft tissue and bone windows are reviewed. Coronal and sagittal reformats have also been submitted. DLP: 1788.[address] scans at [facility] use at least one of these dose optimization techniques: automated exposure control; mA and/or kV adjustment per patient size (includes targeted exams where dose is matched to clinical indication); or iterative reconstruction. COMPARISON: None available. No nasal bone or zygomatic arch fracture. Orbits are intact. No facial bone fractures are identified. There is complete opacification of the frontal, anterior ethmoid and maxillary sinuses. Better aeration of the sphenoid sinuses and the posterior ethmoid air cells. These changes were present on the prior CT from 03/21/2024. Craniocervical junction and the visualized upper cervical spine are negative. Mandible and the mandibular condyles are intact. Mild soft tissue contusion centered over the RIGHT frontal bone. CT/CT facial bones wo con* [id number] IMPRESSION: 1. No acute facial bone fractures. 2. Chronic opacifications of the frontal, anterior ethmoid and maxillary sinus es. May be due to chronic sinus disease or polyposis. 3. Mild soft tissue contusion centered over the RIGHT frontal bone.
--- NOTE | 2025-04-07 08:48 | CT_ITS ---
WS: [id number] CT CERVICAL SPINE HISTORY: fall TECHNIQUE: Contiguous 2.0 mm axial imaging performed through the entire cervical spine. Sagittal and coronal reformats also performed. All CT scans at [facility] use at least one of these dose optimization techniques: automated exposure control; mA and/or kV adjustment per patient size (includes targeted exams where dose is matched to clinical indication); or iterative reconstruction. DLP: 1788.24 mGy.cm COMPARISON: None available. Mild straightening and scoliosis of the cervical spine. Craniocervical junction is intact. Odontoid is intact. Lateral masses are aligned. Moderate degenerative disc space narrowing at C5-C6. Mild loss of height involving the superior endplate of T1. Age-indeterminate finding, new since 2008. Seen on the axial imaging is slight buckling of the RIGHT lateral T1 thoracic vertebral body. C2-C3: Small central disc protrusion. Mild facet arthritis. C3-C4: Small central disc protrusion. C4-C5: Normal. C5-C6: Osteophytic ridging with facet joint arthritis. Moderate central and bilateral foraminal stenosis. C6-C7: Diffuse disc bulging asymmetric to the RIGHT. Moderate central and foraminal stenosis. C7-T1: Normal. Lung apices are clear. No prevertebral soft tissue edema. CT/CT cervical spin wo con* [id number] IMPRESSION: 1. No acute cervical spine fracture identified. 2. Very slight age-indeterminate anterior wedging of the T1 vertebral body. Po ssible small buckle fracture along the RIGHT lateral T1 vertebral body seen on the axial imaging. Correlate with area of tenderness to T1. CT findings can be correlated by MRI. 3. Disc protrusions and stenosis as above.
--- NOTE | 2025-04-07 08:58 | W.ED.AMS ---
HPI - Altered Mental Status General: Chief Complaint: Altered Mental Status Stated Complaint: ams Source: patient and EMS Mode of arrival: EMS Limitations: altered mental status History of Present Illness: 74-year-old female is here from assisted living. Patient has a history of dementia and per EMS has had multiple falls over the last 2 days. Per EMS patient's been a little more confused than her baseline here she is able to tell me her name answer some questions but is just oriented time and place. She does complain of a headache has bruising to head and face she denies any pain in her extremities. Related Data Home Medications ?Medication ?Instructions ?Recorded ?Confirmed atorvastatin 40 mg tablet 40 mg PO QPM 03/16/23 04/07/25 conjugated estrogens 0.3 mg tablet 0.3 mg PO QAM 03/16/23 04/07/25 (Premarin) levothyroxine 100 mcg tablet 100 mcg PO QAM 03/16/23 04/07/25 propranolol 20 mg tablet 20 mg PO BID 03/21/24 04/07/25 acetaminophen 500 mg tablet 500 - 1,000 mg PO Q6H PRN 04/07/25 04/07/25 pain/fever brexpiprazole 0.5 mg tablet 0.5 mg PO DAILY 04/07/25 04/07/25 (Rexulti) duloxetine 30 mg capsule,delayed 30 mg PO DAILY 04/07/25 04/07/25 release folic acid 1 mg tablet 1 mg PO DAILY 04/07/25 04/07/25 memantine 5 mg tablet 5 mg PO BID 04/07/25 04/07/25 olanzapine 5 mg tablet 5 mg PO DAILY 04/07/25 04/07/25 pantoprazole 40 mg tablet,delayed 40 mg PO DAILY 04/07/25 04/07/25 release Previous Rx's ?Medication ?Instructions ?Recorded ferrous gluconate 324 mg (38 mg 324 mg PO BID #60 tabs 02/15/24 iron) tablet cephalexin 500 mg capsule 500 mg PO TID 7 days #21 caps 04/07/25 Allergies Allergy/AdvReac Type Severity Reaction Status Date / Time No Known Allergies Allergy Verified 03/21/24 12:40 Review of Systems General: Reports: ROS unobtainable due to mental status PFS ED PFSH: Medical History Hyperlipidemia Hypothyroidism History of hypothyroidism History of hyperlipidemia Subtrochanteric fracture of right femur Closed fracture of right hip Avulsion fracture of medial malleolus of right tibia Surgical History History of hysterectomy Family History Other Cancer Diabetes Social History Smoking and tobacco/nicotine status: never used tobacco/nicotine Alcohol intake: never Caregiver/support person: No Lives independently: Yes Household members: none Marital status: / Number of children: 1 service: No Current occupational status: retired Physical Exam Const: COMMON NORMALS: no acute distress, healthy appearing and alert ORIENTATION/CONSCIOUSNESS: Yes oriented to person; not oriented to place and not oriented to time HENMT: COMMON NORMALS: normocephalic HEAD & SCALP: normocephalic OTHER: Bruising to right eye and right forehead Eye: COMMON NORMALS: Equal, round and reactive pupils present and EOMs intact bilaterally PUPIL: Yes Equal, round and reactive pupils present Neck/C-Spine: COMMON NORMALS: full ROM and supple Chest: COMMONS NORMALS: normal inspection of the chest and normal palpation of entire chest wall Resp: COMMON NORMALS: normal respiratory effort, No retractions, No use of accessory muscles and clear to auscultation bilaterally AUSCULTATION: clear to auscultation bilaterally Cardio: COMMON NORMALS: regular rate, regular rhythm and No murmurs present (Cardio) RATE: regular rate RHYTHM: regular rhythm GI: COMMON NORMALS: Normal to inspection, nondistended, normoactive bowel sounds present, Soft to palpation, non-tender and no masses PALPATION: Yes Soft to palpation Extremity: COMMON NORMALS: normal to inspection and full ROM Neuro: COMMON NORMALS: moves all extremities and no focal motor deficits SENSORIUM/ORIENTATION: Yes alert, Yes oriented to person, No oriented to place and No oriented to time Psych: COMMON NORMALS: Normal thought process present and cooperative THOUGHT PROCESS: Normal thought process present Skin: COMMON NORMALS: no rashes or lesions noted and no wounds GENERAL SKIN EXAM: no rashes or lesions noted Course Vital Signs: Vital signs: Vital Signs Temperature 97.9 F 04/07/25 08:45 Pulse Rate 82 04/07/25 10:04 Respiratory Rate 16 04/07/25 08:45 Blood Pressure 126/65 04/07/25 08:45 Pulse Oximetry 92 04/07/25 10:04 Oxygen Delivery Me thod Room Air 04/07/25 10:04 MDM - Altered Mental Status Medical Decision Making Patient presents after fall from assisted living does have a history of dementia. Patient is been at her baseline here. Her EKG showed normal sinus rhythm heart rate [address] elevation QRS 97 QTc 428. Patient's imaging here shows no signs of intracerebral hemorrhage she has no sign of a stroke here. Patient's blood work including white count is normal no signs of sepsis her vitals here been normal patient does have a UTI. Did give her IV Rocephin here we will prescribe her Keflex. She is stable for discharge back to assisted living she is to return if worsening. Medical Records I reviewed the patient's medical records. Lab Data I reviewed the patient's lab results. 04/07/25 09:31 04/07/25 09:31 Radiology Impressions Cervical Spine CT 04/07/25 08:48 IMPRESSION: 1. No acute cervical spine fracture identified. 2. Very slight age-indeterminate anterior wedging of the T1 vertebral body. Possible small buckle fracture along the RIGHT lateral T1 vertebral body seen on the axial imaging. Correlate with area of tenderness to T1. CT findings can be correlated by MRI. 3. Disc protrusions and stenosis as above. Chest X-Ray 04/07/25 08:48 IMPRESSION: 1. No acute cardiopulmonary finding. Face CT 04/07/25 08:48 IMPRESSION: 1. No acute facial bone fractures. 2. Chronic opacifications of the frontal, anterior ethmoid and maxillary sinuses. May be due to chronic sinus disease or polyposis. 3. Mild soft tissue contusion centered over the RIGHT frontal bone. Head CT 04/07/25 08:48 IMPRESSION: 1. Examination is compromised by motion artifact. 2. No large areas of hemorrhage or edema. 3. Moderate atrophy with advanced small vessel changes. 4. Small soft tissue contusion centered over the RIGHT frontal bone. Laboratory Results WBC 8.69 10^3/uL (3.29-11.43) 04/07/25 09:31 RBC 4.76 10^6/uL (3.85-5.65) 04/07/25 09:31 Hgb 14.80 g/dL (11.27-16.99) 04/07/25 09: Hct 44.2 % (36-47) 04/07/25 09: MCV 92.9 fl (85-98) 04/07/25 09: MCH 31.1 pg (27-33) 04/07/25: MCHC 33.5 g/dL (30-55) 04/07/25 09: RDW 12.9 % (12.1-15.1) 04/07/25 09: Plt Count 247 10^3/cmm (157-399) 04/07/25 09: MPV 12.1 fL (7.4-10.4) H 04/07/25: Neut % (Auto) 65.4 % 04/07/25 09: Lymph % (Auto) 23.6 % 04/07/25: [place] % (Auto) 8.1 % 04/07/25: Eos % (Auto) 2.1 % 04/07/25 09: Baso % (Auto) 0.5 % 04/07/25: Neut # (Auto) 5.69 10^3/uL (1.8-7.7) 04/07/25 09: Lymph # (Auto) 2.1 10^3/uL (0.8-4.8) 04/07/25 09: [place] # (Auto) 0.7 10^3/uL (0.2-0.9) 04/07/25: Eos # (Auto) 0.2 10^3/uL (0.0-0.8) 04/07/25 09: Baso # (Auto) 0.0 10^3/uL (0.0-0.1) 04/07/25: Nucleated RBC % (auto) 0 % 04/07/25: Nucleated RBCs # 0.0 /100WBC 04/07/25 09: Sodium 143 mmol/L (136-145) 04/07/25 09: Potassium 3.1 mmol/L (3.5-5.1) L 04/07/25: Chloride 101 mmol/L (98-107) 04/07/25 09:31 Carbon Dioxide 30 mmol/L (22-29) H 04/07/25 09:31 Anion Gap 15.1 (5-19) 04/07/25 09:31 BUN 7 mg/dL (8-23) L 04/07/25 09:31 Creatinine 0.7 mg/dL (0.5-0.9) 04/07/25 09:31 GFR Calculation Not Reportable 04/07/25 09: Glucose 118 mg/dL (65-115) H 04/07/25 09:31 Calculated Osmolality 295 mOsm/kg (285-295) 04/07/25 09:31 Calcium 9.5 mg/dL (8.5-10.5) 04/07/25 09:31 Total Bilirubin 0.4 mg/dL (0.15-1.2) 04/07/25 09:31 AST 15 U/L (0-32) 04/07/25 09:31 ALT 13 U/L (0-33) 04/07/25 09:31 Alkaline Phosphatase 90 U/L (35-105) 04/07/25 09:31 Total Protein 7.3 g/dL (6.6-8.7) 04/07/25 09:31 Albumin 4.0 g/dL (3.5-5.2) 04/07/25 09:31 Globulin 3.3 g/dL (1.3-4.6) 04/07/25 09:31 TSH 4.45 uIU/mL (0.27-4.20) H 04/07/25 09:31 Urine Color Yellow (Yellow) 04/07/25 09:20 Urine Appearance Cloudy (CLEAR) A 04/07/25 09:20 Urine pH 6.5 (5-7) 04/07/25 09:20 Ur Specific [place] 1.007 (1.005-1.030) 04/07/25 09:20 Urine Protein Negative (Negative) 04/07/25 09:20 Urine Glucose (UA) Negative (Normal) 04/07/25 09:20 Urine Ketones Negative (Negative) 04/07/25 09:20 Urine Blood Non-haemolysed trace (Negative) 04/07/25 09:20 Urine Nitrate Negative (Negative) 04/07/25 09:20 Urine Bilirubin Negative (Negative) 04/07/25 09:20 Urine Urobilinogen 1.0 mg/dL (Negative) 04/07/25 09:20 Ur Leukocyte Esterase 3+ (Negative) A 04/07/25 09:20 Urine RBC 3-5 /hpf (0-2) 04/07/25 09:20 Urine WBC >100 /hpf (0-5) H 04/07/25 09:20 Ur Squamous Epith Cells 0-5 /hpf (0-5) 04/07/25 09:20 Amorphous Sediment Not Reportable 04/07/25 09:20 Urine Bacteria 4+ /hpf (NONE) H 04/07/25 09:20 Hyaline Casts 0-4 /lpf H 04/07/25 09:20 All radiology interpretation(s) finalized by discharge EKG Data EKG 1: I personally reviewed and interpreted this EKG as follows: EKG interpretation date: 04/07/25 EKG interpretation time: 10:34 Interpretation: nsr hr [address] elevation qrs 97 qtc 428 Discharge Plan Discharge Patient Disposition: Home Clinical Impression: Acute cystitis Qualifiers: Hematuria presence: without hematuria Qualified Code(s): N30.00 - Acute cystitis without hematuria Fall Qualifiers: Encounter type: initial encounter Qualified Code(s): W19.XXXA - Unspecified fall, initial encounter CHI (closed head injury) Qualifiers: Encounter type: initial encounter Qualified Code(s): S09.90XA - Unspecified injury of head, initial encounter Condition: Stable Prescriptions: New cephalexin 500 mg capsule 500 mg PO TID 7 Days Qty: 21 0RF No Action ferrous gluconate 324 mg (38 mg iron) tablet 324 mg PO BID Qty: 60 0RF atorvastatin 40 mg Tablet 40 mg PO QPM levothyroxine 100 mcg Tablet 100 mcg PO QAM Premarin 0.3 mg Tablet 0.3 mg PO QAM propranolol 20 mg tablet 20 mg PO BID olanzapine 5 mg Tablet 5 mg PO DAILY acetaminophen 500 mg Tablet 500 - 1,000 mg PO Q6H PRN (Reason: pain/fever) pantoprazole 40 mg Tablet,Delayed Release (Dr/Ec) 40 mg PO DAILY folic acid 1 mg Tablet 1 mg PO DAILY memantine 5 mg Tablet 5 mg PO BID duloxetine 30 mg Capsule,Delayed Release(Dr/Ec) 30 mg PO DAILY Rexulti 0.5 mg Tablet 0.5 mg PO DAILY Discharge Orders: Discharge ED (Routine); Ordered 04/07/25 Ordered By: Dell Steele Referrals: Freddy Pugh MD [Primary Care Provider, Internal Medicine] - 4-7 days Discharge Diet: Advance as tolerated Discharge Activity: Resume usual activity Patient Instructions: Altered Mental Status (ED), Opioid Safety, Pain Management, Patient Portal & [facility]ke Instructions Print Language: Yakut Coding Level of Care Code ED Chairman President And Chief Executive Officer for Juliana Romero
--- OUTSIDE RECORDS SUMMARY | 2025-04-07 09:10 | XMS_ITS | Encounter Summary ---
Author Organization [facility] Address [address] [facility] [place] [address] Care Team Providers Care Progress Clerk Name Role Phone Unavailable Primary Care Provider Unavailabl e Encounter Details Date Type Department Care Team (Late st Contact Info) Description 09/14/2000 Outpatient Historical [facility] [place] [facility] [place] [address] [place] [address] Clair Shah MD [address] [facility] [place] [id number] Benign danitza ovary (Primary Dx); Submucous leiomyoma Social History Tobacco Use Types Packs/Day Years Used Date Smoking Tobacco: Never Assessed Comments Unknown Sex and Gender Information Value Date Recorded Sex Assigned at Not on file Legal Sex Female 3:02 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
--- OUTSIDE RECORDS SUMMARY | 2025-04-07 09:10 | XMS_ITS | Encounter Summary ---
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
--- OUTSIDE RECORDS SUMMARY | 2025-04-07 09:10 | XMS_ITS | Data Portability ---
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 [email or web address] Not available 08/11/2024 11:14:11 03/28/2025 03/28/2025 74-year-old female with history of stable vital signs, presenting for a routine checkup. She is doing well on her current medications, with no new issues reported. There are no active concerns affecting her health at this time. [email or web address] Not available 03/28/2025 12:17:55 Plan of Treatment Reminders Order Date Submit Date Provider Last Modified By Organization Details Last Modified Time Details Appointments None recorded. Lab None recorded. Referral None recorded. Procedures None recorded. Surgeries None recorded. Imaging None recorded. Medication Orders zaleplon 5 mg capsule 2023 024 [email or web address] [employer], [place], [address], 5 10:59:03 Rexulti 0.5 mg tablet 2023 024 [facility] [employer], [employer], [place], [address], 4 14:08:02 escitalopr am 10 mg tablet 2023 024 [email or web address] [facility], [address] [facility], [place], [address], 5 10:55:31 Patient TargetsNo targets recorded. Patient Instructions Encounter Date Encounter Id Patient Instructions Last Modified By Organization Details Last Modified Time 03/28/2025 [id number] - Continue with your current medications as directed. - Continue any wellness practices that are working well for you. - Schedule your next routine checkup in three months. - Contact us if you have any concerns or changes in your health before then. [email or web address] Not available 03/28/2025 12:17:58 I discussed with the patient her stable health condition and absence of new concerns or symptoms. She confirmed doing well on her medications, and her current health status is satisfactory. We covered the routine nature of this visit, and no immediate diagnostic studies or treatments were deemed necessary at this time. I advised her to continue her current medications and ensure ongoing wellness practices. We agreed to a follow-up routine checkup in three months unless concerns arise before then. [email or web address] Not available 03/28/2025 12:17:58 Reason for Referral None Reported. Results Created Date Observation Date Name Description Value Unit Range Abnormal Flag Note LastModifiedBy Organization Detail LastModifiedTime Result Notes None recorded. Problems Name Problem SNOMED Code Status Onset Date Resolution Date Notes Provider Name and Address Organization Details Recorded Time Herpes zoster 2765962 Active 2021 Shingles; Date: 03/2022; 2 1:34PM by Jonathan Yang RN, Office Visit; Promoted; acuity set as *; Not Available [facility] 3 03:08:54 section Active 2021 Section; x1- 1969; 2 1:33PM by Jonathan Yang RN, Office Visit; Promoted; acuity set as *; Not Available [facility] 3 03:08:53 History of hysterect elena 365111630 Active 2021 Hysterect elena; Abdominal ; 2 1:33PM by Jonathan Yang RN, Office Visit; Promoted; acuity set as *; Not Available [facility] 3 03:08:54 Appendect elena Active 2021 Appendect elena; 2 1:33PM by Jonathan Yang RN, Office Visit; Promoted; acuity set as *; Not Available [facility] 3 03:08:54 Mixed anxiety and depressiv e disorder 315981915 Active 2022 JONATHAN blackwell, [facility] 3 10:31:38 Hypothyro idism 33847012 Active 2022 JONATHAN YANG [facility], [facility] 3 10:34:39 Osteoporo sis 28423881 Active 2022 JONATHAN YANG [facility], [facility] 3 10:35:25 Hyperchol esterolem ia 34658080 Active 2022 JONATHAN YANG [facility], [facility] 3 10:36:05 Essential tremor 759398321 Active 2022 JONATHAN YANG [facility], [facility] 3 10:36:34 Heartburn 59566902 Active 2022 JONATHAN YANG [facility], [facility] 3 10:38:24 Memory impairmen t 721839768 Active 2022 JONATHAN YANG [facility], [facility] 3 10:40:11 Pain of multiple joints 88250513 Active 2022 JONATHAN YANG [facility], [facility] 3 10:40:54 Hormone replaceme nt therapy Active 2022 JONATHAN blackwell, [facility] 3 10:42:29 Bilateral lower leg edema 974850781 Active 2022 Deandre Bay DO [address] [place] [address], [phone] , [facility] 3 17:37:53 Systolic murmur 95054534 Active 2022 Deandre Bay DO [address] [place] [address], [phone] , [facility] 3 17:37:53 Pain in limb 71919767 Active 2023 JONATHAN blackwell [facility] 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 4 13:58:56 Insomnia 169728053 Active 2023 Tone Colorado MD [address] [place], [place] [id number] , [facility] 4 14:08:59 Localized swelling of right lower leg 58833479770 128043 Active 2024 Tone Colorado MD [address] [place], [place] [id number] , [facility] 5 14:53:44 Acute urinary tract infection 836032400 Active 2024 Tone Colorado MD [address] [place], [place] [id number] , [facility] 5 16:53:59 Problem Notes None recorded. Procedures Surgical History Date Name Laterality Status Provider Name and Address Organization Details Recorded Time [facility]aract [facility] 16:07:31 Imaging Results None recorded. Procedure Notes None recorded. Medical Equipment None Reported. Allergies No known drug allergies Medications Name Sig Start Date Stop Date Status Note LastModified by Organization Details LastModified Time atorvasta tin 40 mg tablet TAKE ONE TABLET BY MOUTH EVERY DAY active Not Available Not Available No t Available venlafaxi ne ER 37.5 mg capsule,e xtended release 24 hr TAKE ONE CAPSULE BY MOUTH EVERY DAY 10/03 completed Not Available Not Available Not Available venlafaxi ne ER 75 mg capsule,e xtended release 24 hr Take 1 capsule every day by oral route. 10/03 completed VO JR/bh pt needs labs and appt prior to more refills Not Available Not Available Not Available aspirin 325 mg tablet TAKE ONE TABLET BY MOUTH TWICE DAILY 05/08 completed Not Available Not Available Not Available hydrocodo ne 5 mg-acetam inophen 325 mg tablet TAKE ONE TABLET BY MOUTH EVERY 6 HOURS NEEDED FOR PAIN FOR 5 DAYS 05/08 completed Not Available Not Available Not Available donepezil 10 mg tablet TAKE ONE TABLET BY MOUTH EVERY DAY 09/27 completed Not Available Not Available Not Available meloxicam 15 mg tablet Take 1 tablet every day by oral route as needed. 05/08 completed Not Available Not Available Not Available prednison e 20 mg tablet TAKE ONE TABLET BY MOUTH TWICE DAILY 04/14 completed Not Available Not Available Not Available alendrona te 70 mg tablet Take 1 tablet every week by oral route. 05/08 completed Not Available Not Available Not Available ciproflox acin 500 mg tablet TAKE ONE TABLET BY MOUTH TWICE DAILY 10/26 completed Not Available Not Available Not Available folic acid 400 mcg tablet TAKE 2 AND 1/2 TABLETS BY MOUTH DAILY active Not Available Not Available No t Available sulfameth oxazole 800 mg-trimet hoprim 160 mg tablet TAKE 1 TABLET BY MOUTH EVERY TWELVE HOURS for 7 days 09/27 completed Not Available Not Available Not Available triamcino lone acetonide 0.1 % topical cream USE ONE APPLICAT ION TOPICALL Y THREE TIMES DAILY 01/23 completed Not Available Not Available Not Available pantopraz ole 20 mg tablet,de layed release TAKE ONE TABLET BY MOUTH TWICE DAILY 05/08 completed Not Available Not Available Not Available levothyro xine 75 mcg tablet Take 1 tablet every day by oral route. 07/17 completed VO JR/bh Not Available Not Available Not Available prednison e 10 mg tablets in a dose pack TAKE DIRECTED ON PACKAGE 10/26 completed Not Available Not Available Not Available Macrobid 100 mg capsule Take 1 capsule every 12 hours by oral route for 5 days. 03/11 completed Not Available Not Available Not Available levothyro xine 100 mcg tablet TAKE ONE TABLET BY MOUTH EVERY DAY active Not Available Not Available No t Available potassium chloride ER 20 mEq tablet,ex tended release(p art/cryst ) TAKE ONE TABLET BY MOUTH TWICE DAILY FOR THREE DAYS, THEN ONCE DAILY 09/27 completed Not Available Not Available Not Available famciclov ir 500 mg tablet TAKE ONE TABLET BY MOUTH THREE TIMES DAILY FOR 7 DAYS 10/26 completed Not Available Not Available Not Available Tylenol 500 mg tablet Take 2 tablets every 6 hours by oral route. active Not Available Not Available No t Available Lasix 20 mg tablet Take 1 tablet every day by oral route. 2024 active Not Available Not Available Not Avai lable cephalexi n 500 mg capsule TAKE ONE CAPSULE BY MOUTH THREE TIMES DAILY 04/14 completed Not Available Not Available Not Available pantopraz ole 40 mg tablet,de layed release Take 1 tablet twice a day by oral route. active Not Available Not Available No t Available levothyro xine 125 mcg tablet Take 1 tablet every day by oral route. 09/27 completed Not Available Not Available Not Available docusate sodium 100 mg capsule TAKE ONE CAPSULE BY MOUTH TWICE DAILY 05/08 completed Not Available Not Available Not Available gabapenti n 300 mg capsule TAKE ONE CAPSULE BY MOUTH TWICE DAILY 05/08 completed Not Available Not Available Not Available omeprazol e 20 mg capsule,d elayed release TAKE ONE CAPSULE BY MOUTH TWICE DAILY 04/14 completed Not Available Not Available Not Available mupirocin 2 % topical ointment APPLY TOPICALL Y TO THE AFFECTED AREA TWICE DAILY 10/26 completed Not Available Not Available Not Available zaleplon 5 mg capsule Take 1 capsule every day by oral route. 09/27 completed Not Available Not Available Not Available levofloxa luis 750 mg tablet TAKE ONE TABLET BY MOUTH DAILY FOR 5 DAYS 04/14 completed Not Available Not Available Not Available albuterol sulfate HFA 90 mcg/actua tion aerosol inhaler INHALE 2 PUFFS INTO LUNGS FOUR TIMES DAILY NEEDED FOR SHORTNES S OF BREATH OR WHEEZING 09/27 completed Not Available Not Available Not Available propranol ol 20 mg tablet TAKE ONE TABLET BY MOUTH TWICE DAILY active Not Available Not Available No t Available ondansetr on 4 mg disintegr ating tablet DISSOLVE ONE TABLET BY MOUTH EVERY 6 HOURS NEEDED FOR NAUSEA AND VOMITING 09/27 completed Not Available Not Available Not Available fluticaso ne propionat e 50 mcg/actua tion nasal spray,jg pension USE 1 SPRAY IN LEFT NOSTRIL (CONGEST ED NOSTRIL) TWICE DAILY 09/27 completed Not Available Not Available Not Available amoxicill in 875 mg-potass ium clavulana te 125 mg tablet TAKE ONE TABLET BY MOUTH TWICE DAILY 04/14 completed Not Available Not Available Not Available oxycodone 5 mg tablet TAKE ONE TABLET BY MOUTH EVERY 6 HOURS NEEDED FOR MODERATE TO SEVERE PAIN, (2ND LINE) FOR 7 DAYS 05/08 completed Not Available Not Available Not Available olanzapin e 5 mg disintegr ating tablet DISSOLVE ONE TABLET UNDER THE TONGUE at bedtime active Not Available Not Available No t Available hydroxyzi ne pamoate 25 mg capsule TAKE ONE CAPSULE BY MOUTH TWICE DAILY NEEDED FOR ITCHING 09/27 completed Not Available Not Available Not Available enoxapari n 30 mg/0.3 mL subcutane ous syringe INJECT CONTENTS OF ONE PEN (0.3 ML) UNDER SKIN DAILY FOR BLOOD CLOT PREVENTI ON FOR 35 DAYS 05/08 completed Not Available Not Available Not Available escitalop glenny 10 mg tablet TAKE ONE TABLET BY MOUTH DAILY 09/27 completed Not Available Not Available Not Available Premarin 0.3 mg tablet TAKE ONE TABLET BY MOUTH DAILY active Not Available Not Available No t Available memantine 5 mg tablet Take 1 tablet twice a day by oral route. active Not Available Not Available No t Available escitalop glenny 5 mg tablet TAKE ONE TABLET BY MOUTH EVERY DAY 11/15 completed Not Available Not Available Not Available metoprolo l tartrate 25 mg tablet TAKE ONE TABLET BY MOUTH TWICE DAILY 05/08 completed Not Available Not Available Not Available duloxetin e 20 mg capsule,d elayed release TAKE ONE CAPSULE BY MOUTH ONCE DAILY active Not Available Not Available No t Available meloxicam QD 01/23 completed 173; Recorded 12/31/19 22 5:03PM by Jonathan Yang RN (Authori yennid through Sarahy Kemp MD), Refill Request; Mail Order Quantity : 100 Tablet; Refill Quantity : 0; Not Available Not Available Not Available Fosamax Qweek 01/23 completed 173; Recorded 12/31/19 5:03PM by Jonathan Yang RN (Authori rakel through Sarahy Kemp MD), Refill Request; Mail Order Quantity : 12 Tablet; Refill Quantity : 0; Not Available Not Available Not Available Flonase bID in affect nostril. 01/23 completed Recorded 10/20/19 9:53AM by Niraj morris, Office Visit; Refill Quantity : 1; Each; Not Available Not Available Not Available Aricept QD 01/23 completed 173; Recorded 12/31/19 22 5:02PM by Jonathan Yang RN (Authori rakel through Sarahy Kemp MD), Refill Request; Mail Order Quantity : 100 Tablet; Refill Quantity : 0; Not Available Not Available Not Available Calcium Plus BID 01/23 completed 0; Recorded 04/25/20 22 1:33PM by Jonathan Yang RN, Office Visit; Not Available Not Available Not Available Premarin QD 01/23 completed 173; Recorded 12/31/19 22 5:04PM by Jonathan Yang RN (Authori rakel through Sarahy Kemp MD), Refill Request; Mail Order Quantity : 100 Tablet; Refill Quantity : 0; Not Available Not Available Not Available ferrous gluconate 324 mg (38 mg iron) tablet TAKE ONE TABLET BY MOUTH TWICE DAILY active Not Available Not Available No t Available calcium 600 mg (as carbonate )-vitamin D3 10 mcg (400 unit) tablet TAKE ONE TABLET BY MOUTH TWICE DAILY 09/27 completed Not Available Not Available Not Available omeprazol e 20 mg tablet,de layed release Take 1 tablet twice a day by oral route. 09/27 completed Not Available Not Available Not Available lidocaine 5 % topical ointment USE ONE APPLICAT ION TOPICALL Y THREE TIMES DAILY NEEDED FOR PAIN 09/27 completed Not Available Not Available Not Available Stimulant Laxative Plus 8.6 mg-50 mg tablet TAKE ONE TABLET BY MOUTH DAILY 05/08 completed Not Available Not Available Not Available potassium chloride ER 20 mEq tablet,ex tended release Take 1 tablet every day by oral route. 12/31 completed Not Available Not Available Not Available Rexulti 0.5 mg tablet Take 1 tablet every day by oral route. 2023 active Not Available Not Available Not Avai lable Vitals Date Recorded Body height Body mass index (BMI) Body weight Oxygen saturation Oxygen saturation in Arterial blood by Pulse oximetry Heart rate Respiratory rate Body temperature Systolic And Diastolic Provider Name and Address Organization Details Last Updated DateTime 5 156.85 cm 30.8 kg/m2 97565.9 3 g 95 % 95 % 65 /min 18 /min 99.6 [degF] 128/88 mm[Hg] Tone Colorado MD [address] [place] [address], [phone], [facility] 5 11:15:08 Date Recorded Body height Body mass index (BMI) Body weight Respiratory rate Oxygen saturation Oxygen saturation in Arterial blood by Pulse oximetry Heart rate Body temperature Systolic And Diastolic Provider Name and Address Organization Details Last Updated DateTime 4 156.85 cm 30.8 kg/m2 83592.9 3 g 20 /min 97 % 97 % 80 /min 98.8 [degF] 128/68 mm[Hg] JONATHAN YANG [facility] 4 16:17:46 Date Recorded Body height Oxygen saturation Oxygen saturation in Arterial blood by Pulse oximetry Heart rate Body temperature Systolic And Diastolic Provider Name and Address Organization Details Last Updated DateTime 5 156.85 cm 95 % 95 % 72 /min 97.4 [degF] 112/72 mm[Hg] Amanda [facility] 5 18:24:34 Date Recorded Body height Body mass index (BMI) Body weight Oxygen saturation Oxygen saturation in Arterial blood by Pulse oximetry Heart rate Respiratory rate Body temperature Systolic And Diastolic Provider Name and Address Organization Details Last Updated DateTime 5 156.85 cm 29.9 kg/m2 86201.9 6 g 95 % 95 % 76 /min 17 /min 96.8 [degF] 114/63 mm[Hg] Tone Colorado MD [address] [place], [address] [place] [address], L[facility] 5 08:16:06 Date Recorded Body height Oxygen saturation Oxygen saturation in Arterial blood by Pulse oximetry Heart rate Respiratory rate Body temperature Systolic And Diastolic Provider Name and Address Organization Details Last Updated DateTime 4 156.85 cm 95 % 95 % 125 /min 20 /min 97.8 [degF] 142/84 mm[Hg] Tone Colorado MD [address] [place] [address], [phone] [place] [address], L[facility] 4 09:55:59 Social History None recorded. Functional Status Question Answer Note LastModified by Organizat ion Details LastModified Time Do you use any illicit or recreational drugs? No [email or web address] Information not available 01/23/2023 What is your level of alcohol consumption? None [email or web address] Information not available 10/26/2022 Mental Status None recorded. Family History Nothing Reported. Medical History No medical history recorded. Gynecological HistoryNo gynecological history recorded. Obstetrics History GPAL:G 0 P 0 0 0 0 Immunizations Vaccine Type Date Status Note Provider Nam e and Address Organization Details Recorded Time Influenza, split virus, trivalent, preservative 2 completed Not Available [facility] 07/12/2023 14:53:58 zoster live 2 completed Not Available [facility] 07/12/2023 14:53:58 Influenza, split virus, trivalent, preservative 0 completed Not Available [facility] 07/12/2023 14:53:58 Influenza, split virus, trivalent, preservative 1 completed Not Available [facility] 07/12/2023 14:53:58 Influenza, split virus, trivalent, preservative 2 completed Not Available [facility] 07/12/2023 14:53:58 Influenza, split virus, trivalent, preservative 5 completed Not Available [facility] 07/12/2023 14:53:58 pneumococcal polysaccharide PPV23 5 completed Not Available [facility] 07/12/2023 14:53:58 Influenza, split virus, quadrivalent, PF 3 [facility] 05/08/2023 13:57:22 Influenza, split virus, trivalent, PF 0 completed Not Available [facility] 03/28/2025 08:43:36 Influenza, split virus, trivalent, PF 4 completed Not Available [facility] 03/28/2025 08:43:36 zoster recombinant 3 completed JONATHAN blackwell, [facility] 10/26/2022 11:03:49 zoster recombinant 3 [facility] 10/26/2022 11:03:49 COVID-19, mRNA, LNP-S, PF, 100 mcg/0.5mL dose or 50 mcg/0.25mL dose 1 completed JONATHAN blackwell [facility] 10/26/2022 11:03:49 COVID-19, mRNA, LNP-S, PF, 100 mcg/0.5mL dose or 50 mcg/0.25mL dose 1 completed JONATHAN blackwell, [facility] 10/26/2022 11:03:49 COVID-19, mRNA, LNP-S, PF, 100 mcg/0.5mL dose or 50 mcg/0.25mL dose 1 completed JONATHAN MIXY rosalva [facility] 10/26/2022 11:03:49 COVID-19, mRNA, LNP-S, bivalent, PF, 50 mcg/0.5 mL or 25mcg/0.25 mL dose 2 completed JONATHAN blackwell [facility] 10/26/2022 11:03:49 pneumococcal polysaccharide PPV23 5 completed JONATHAN SADIA blackwell [facility] 10/26/2022 11:03:49 Tdap 0 completed [facility]DRA [facility] 10/26/2022 11:03:49 Pneumococcal conjugate PCV 13 6 completed [facility] 10/26/2022 11:03:49 Past Encounters Encounter ID Performer Location Encounter Start Date Encounter Closed Date Diagnosis/Indication Diagnosis SNOMED-CT Code Diagnosis ICD10 Code Diagnosis IMO Codes Diagnosis Note [id number] Sarahy Kemp MD [facility] ([facility]) [address] [place] [phone] 10/26/2022 10:56:56 10/26/2022 13:13:14 Hypothyroidism 82070952 E03.9 Mixed anxi ety and depressive disorder 886815024 F41.8 Hypercholesterolemia 136 26632 E78.00 Glucose le serena outside reference range 603935952 R73.09 [id number] Deandre Bay DO [facility] ([facility]) [address] [place] [address] 01/23/2023 16:22:54 01/23/2023 19:15:02 Bilateral lower leg edema 540653642 R60.0 As below. Systolic murmur 31530355 R01.1 This appears to be new. With bilateral leg edema. Will obtain echo and labs to rule out possible congestive heart failure. Patient is to continue her Lasix every morning for now. Follow-up with PCP after testing. Hypothyroidism 38140006 E03.9 We will repeat thyroid labs and get a BNP due to concern for possible heart failure. We will have patient follow-up with PCP after testing. [id number] Sarahy Kemp MD [facility] ([facility]) [address] [place] [phone] 05/08/2023 13:20:39 05/09/2023 15:08:49 Anxiety 45001873 F41.9 Hypothyroidism 51716651 E03.9 Hyperglycemia 74891340 R 73.9 [id number] Sarahy Kemp MD [facility] ([facility]) [address] [place] [phone] 07/12/2023 14:53:28 07/12/2023 18:13:44 Hypercholesterolemia 80868576 E78.00 Heartburn 21071841 R12 Mixed anxi ety and depressive disorder 839348102 F41.8 Memory impairment 196752 006 R41.3 Essential tremor 3832355 09 G25.0 Hypothyroidism 38856829 E03.9 Pain in limb 91439971 M7 9.044 [id number] Sarahy Kemp MD [facility] ([facility]) [address] [place] [phone] 10/04/2023 15:20:14 10/04/2023 16:52:53 Hypothyroidism 54516564 E03.9 Memory impairment 826611 006 R41.3 Mixed anxi ety and depressive disorder 916894738 F41.8 Anxiety 14189106 F41.9 [id number] Tone Colorado MD [facility] ([facility]) [address] [place] [phone] 04/12/2024 13:27:44 04/16/2024 10:13:14 Mixed anxiety and depressive disorder 752929626 F41.8 Tolerating duloxetine . Dementia o f the Alzheimer type with behavioral disturbance 3037532440 101 G30.1 Concerned about agitation secondary to dementia. The patient did get agitated when the nurse looked at a mole on her arm during exam today. We will try to see if her insurance will cover Rexulti as it is indicated for agitation and Alzheimer' s. Otherwise, I would recommend redirectio n and other modalities to alter her behavior and try to minimize additional medication especially sedating medication s. Insomnia 596458389 G47.0 0 Continue zaleplon Essential tremor 8785055 09 G25.0 Continue propranolo l. Hypercholesterolemia 136 38740 E78.00 Continue statin. Hypothyroidism 10459693 E03.9 Continue levothyrox ine. [id number] Tone Colorado MD [facility]) [address] [place], [place] [phone] 08/09/2024 13:29:05 08/13/2024 15:13:19 Localized swelling of right lower leg 6089772982 1173663 R22.41 Recommend that we proceed with venous Doppler for further evaluation . Bilateral lower leg edema 249116201 R60.0 We will check labs as discussed above. Recommend feet elevation and conservati ve measures. [id number] Tone Colorado MD [facility]) [address] [place] [phone] 12/27/2024 09:56:13 12/31/2024 11:16:23 Bilateral lower leg edema 816639742 R60.0 Recommend feet elevation and conservati ve measures. Dementia o f the Alzheimer type with behavioral disturbance 6510817666 101 G30.1 Concerned about agitation secondary to dementia. The patient did get agitated when the nurse looked at a mole on her arm during exam today. We will try to see if her insurance will cover Rexulti as it is indicated for agitation and Alzheimer' s. Otherwise, I would recommend redirectio n and other modalities to alter her behavior and try to minimize additional medication especially sedating medication s. Hypercholesterolemia [id number] E78.00 Continue statin. Hypothyroidism 23188847 E03.9 Continue levothyrox ine. Insomnia [id number] G47.0 0 Continue zaleplon [id number] Tone Colorado MD [facility] ([facility]) [address] [place] [phone] 03/28/2025 08:43:22 03/31/2025 12:52:24 Mixed anxiety and depressive disorder [id number] F41.8 Tolerating duloxetine . Hypothyroidism 29651249 E03.9 Continue levothyrox ine. Osteoporosis 07814286 M8 1.0 Dementia o f the Alzheimer type with behavioral disturbance [id number] 101 G30.1 Concerned about agitation secondary to dementia. The patient did get agitated when the nurse looked at a mole on her arm during exam today. We will try to see if her insurance will cover Rexulti as it is indicated for agitation and Alzheimer' s. Otherwise, I would recommend redirectio n and other modalities to alter her behavior and try to minimize additional medication especially sedating medication s. Essential tremor 0774063 09 G25.0 Continue propranolo l. Insomnia [id number] G47.0 0 Continue zaleplon Health Concerns Section Related Observation LastModified by Organization Detai ls LastModified Time None Recorded Concern Status LastModified by Organization Details LastModified Time None Recorded Advance Directives Directive None Recorded Payers Insurance Date Sequence Insurance Name Policy Number Policy Restrepo Covered Member ID Restrepo Member ID Guarantor Name 03/27/2025 [place] - MEDICARE-[place] - PART A - [facility] (MEDICARE) Venita Oconnell [id number] Venita Oconnell 03/27/2025 2 () Venita Oconnell [id number] Venita Oconnell 03/27/2025 1 [place] Venita Oconnell [id number] Venita Oconnell Notes Date Note Type Note Provider Name and Address Organization Details Recorded Time 10/04/19 24 text/htm l Generalized Anxiety DisorderReported by PatientHPIFor associated symptoms, patient reportsrestlessnessandsleep disturbancesbut reportsno difficulty concentratingandno difficulty controlling worry. For onset/timing, patient reports___ years. For severity, patient reportsmoderate. HypothyroidReported by PatientHPIFor reason for visit, patient reportsmedication adjustmentandgeneral check-up. For duration, patient reports>12 months. For associated symptoms, patient reportsno weakness,no fatigue, andno chest pain. For treatment, patient reportstaking medication as prescribed. pts grand daughter wrote a note for pt to bring in to visit today, she feels that her Lexapro is not helping, she often feels nervous Memory she having trouble with names, feels like she knows what she wants to say, but can't form the words she wants . She has increased humming SHe is doing PT twice per week for her legs and walking Sarahy Kemp MD [address] [place] [address], [phone], [facility] 10/04/2023 16:39:38 04/12/20 24 text/htm l This is a 73-year-old female that was seen as a new patient at her apartment in memory care at [facility]. The patient was previously in other facilities today and it was recommended that she be in a lockdown unit. The patient has eloped at least twice at previous facilities. The patient reports that the patient is having significant memory issues and has had some activities that poses a danger to herself such as leaving the stove on at home and other concerns. The patient does have several chronic medical issues that has been stable on current medications. The biggest concern the nursing staff has now is aggressive behavior. The patient will get very agitated at times. The patient also attempts to escape and when she is redirected she will get violent at this time. Most of the time the patient is calm and easily redirectable. The patient continues to express desire to leave the facility. The patient needs a refill on her zaleplon for her insomnia. This. The patient appears to be working well for her. Tone Colorado MD [address] [place] [address], [phone], [facility] 04/14/2024 10:02:13 08/09/19 25 text/htm l This is a 74-year-old female that was seen at her apartment in assisted living. The patient has been having increasing lower leg swelling with her right leg greater than her left. Patient has had some mild erythema, however this is improved slightly today. The patient denies any recent falls or injury. Tone Colorado MD [address] [place] [address], [phone], [facility] 08/11/2024 11:15:44 12/28/19 25 text/htm l Pt seen today as a 4 month follow up the patient denies any concerns. There is no staff or nursing concerns. Patient appears to be doing well on her current medications and there is no notable side effects. Follow up thyroid lab ordered TSH, FREE A8Ptxcb written and given to Alexander RICH at [facility]. Tone Colorado MD [address] [place] [address], [phone], [facility] 12/29/2024 22:26:32 03/28/20 25 text/htm l The patient is a 74-year-old female presenting for a routine checkup. She has reported doing well on her medications and her vital signs have been stable. There are no concerns from her or her family, and no new symptoms or conditions have arisen since her last visit. Patient was seen at their apartment in assisted living. Tone Colorado MD [address] [place] [address], [phone], [facility] 03/29/2025 08:17:15 OBGyn Episode No OBEpisode recorded.
--- OUTSIDE RECORDS SUMMARY | 2025-04-07 09:10 | XMS_ITS | Encounter Summary ---
Author Organization [facility] Address [address] [facility] [place] [address] Care Team Providers Care Supervisor Game Farm Name Role Phone Unavailable Primary Care Provider Unavailabl e Encounter Details Date Type Department Care Team (Late st Contact Info) Description 09/08/2000 Outpatient Historical [facility] Imaging Services-[facility] [place] [address] [place] [address] Clair Shah MD [address] [facility] [place] [phone] Abdominal or pelvic swelling, mass or lump, unspecified site (Primary Dx) Social History Tobacco Use Types Packs/Day Years Used Date Smoking Tobacco: Never Assessed Comments Unknown Sex and Gender Information Value Date Recorded Sex Assigned at Not on file 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
--- OUTSIDE RECORDS SUMMARY | 2025-04-07 09:10 | XMS_ITS | Encounter Summary ---
Author Organization [facility] Address [address] [place] [address] Care Team Providers Care Welfare Manager Name Role Phone Unavailable Primary Care Provider Unavailabl e Encounter Details Date Type Department Care Team (Late st Contact Info) Description 08/23/2002 Outpatient Historical [address] [place] [phone] Clair Shah MD [address] [facility] [place] [address] Routine medical exam (Primary Dx); Gynecologic examination; SYMPTOMATIC FEMALE CLIMACTERIC STATE; SCREENING MAL NEOP-RECTUM Social History Tobacco Use Types Packs/Day Years Used Date Smoking Tobacco: Never Assessed Comments Unknown Sex and Gender Information Value Date Recorded Sex Assigned at Not on file 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
--- OUTSIDE RECORDS SUMMARY | 2025-04-07 09:10 | XMS_ITS | Encounter Summary ---
Author Organization [facility] Address [address] 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
--- OUTSIDE RECORDS SUMMARY | 2025-04-07 09:10 | XMS_ITS | Patient Health Record ---
Author Organization [facility] Address [address] [place] [address] Care Team Providers Care Data Processing Manager Name Role Phone Fan Pugh Primary Care Provider Allergies No Known Allergies Reason For Referral No Information Medications Medication SIG (Take, Route, Frequency, Duration) Notes Start Date End Date Status Estrogens Conjugated 0.3 MG Tablet 1 tablet Orally Once a day; Duration: 90 days Active Atorvastatin Calcium 40 MG Tablet TAKE ONE TABLET BY MOUTH EVERY DAY Orally Once a day; Duration: 90 days Active Donepezil HCl 10 MG Tablet TAKE ONE TABLET BY MOUTH EVERY DAY Orally Once a day; Duration: 90 days Not-Taking DULoxetine HCl 40 MG Capsule Delayed Release Particles 1 capsule Orally Once a day; Duration: 90 days 12/04/2023 Active Omeprazole 20 MG Capsule Delayed Release TAKE ONE CAPSULE BY MOUTH TWICE DAILY Orally twice a day; Duration: 90 days Active Levothyroxine Sodium 100 MCG Capsule TAKE ONE TABLET BY MOUTH EVERY DAY Orally Once a day; Duration: 90 days Active Propranolol HCl 20 MG Tablet TAKE ONE TABLET BY MOUTH TWICE DAILY Orally Twice a day; Duration: 90 days Active Injectafer 750 MG/15ML Solution 750MG/15 mL for 2 doses Intravenous Weekly; Duration: 30 days INJECTAFER 750ML/15ML WEEKLY 03/07/2024 Active Social History Tobacco Use: Social History Observation Description Date Details (start date - stop date) Former Smoker NA - NA Social History Depression Screening Social Info Question Answer Notes depression screening findings Findings Positive (5+ without suicidality) Completed 03/06/24 PHQ-9 Little interest or pleasure in doing things Not at all Feeling down, depressed, or hopeless Not at all Trouble falling or staying asleep, or sleeping t oo much Not at all Feeling tired or having little energy More than half the days Poor appetite or overeating Nearly every day Feeling bad about yourself, or that you are a failure, or have let yourself or your family down Not at all Trouble concentrating on thi ngs, such as reading the newspaper or watching television Not at all Moving or speaking so slowly that other people could have noticed. Or the opposite ? being so fidgety or restless that you have been moving around a lot more than usual Not at all Thoughts that you would be b jayne off , or of hurting yourself in some way Not at all Total Score 5 Interpretation Mild Depression Drugs/Alcohol: Social Info Question Answer Notes Drugs Have you used drugs other than those for medical reasons in the past 12 months? No Drug/Alcohol: Social Info Question Answer Notes AUDIT-C (Standard) Did you have a drink containing alcohol in the past year? No Points 0 Interpretation Negative Tobacco Use: Social Info Question Answer Notes Tobacco Control (Standard) Tobacco use: Former smoker How long has it been since you last smoked? Greater than 10 years Problems Problem Type SNOMED Code ICD Code Onset Dates Problem Status W/U Status Risk Notes Problem Mixed hyperlipidemia (840551507) Mixed hyperlipidemia (E78.2) Active confirmed Problem Adjustment disorder with mixed disturbance of emotions AND conduct (20805880) Adjustment disorder with mixed disturbance of emotions and conduct (F43.25) Active confirmed Problem Insomnia (087438584) Insomnia (G47.00) Active confirmed Problem Obstructive sleep apnea syndrome (74911195) GILES (obstructive sleep apnea) (G47.33) Active confirmed Problem Adult failure to thrive syndrome (412008599) Failure to thrive in adult (R62.7) Active confirmed Problem Daytime somnolence (122765255472) Daytime somnolence (R40.0) Active confirmed Problem Memory loss (97091804) Memory loss (R41.3) Active confirmed Problem Cerebrovascular disease (90003592) Cerebral microvascular disease (I67.9) Active confirmed Problem Abnormal feces (895391970) Heme positive stool (R19.5) Active confirmed Problem Microcytic anemia (114255142) Microcytic anemia (D50.9) Active confirmed Problem 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) Brain atrophy (G31.9) Active confirmed Problem Vascular dementia, severe, with other behavioral disturbance (F01.C18) Active confirmed Problem Vascular dementia, severe, with psychotic disturbance (F01.C2) Active confirmed Plan Of Treatment No Information Insurance Providers Payer Name Payer Address Payer Phone Subscriber Number Group Number Insured Name Patient Relationship to Insured Coverage Start Date Coverage End Date [place] [address] [address] [place] [address] [id number] Venita Oconnell Self - patient is the insured [facility] [address] [address] [place] [phone] [id number] Venita Oconnell Self - patient is the insured Medical (General) History Medical History History ICD Code Hypothyroidism high cholesertol Essential tremors GERD Depression memory loss Surgical History Surgery Date(Month/Year) R hip surgery cataract removal hysterectomy
--- OUTSIDE RECORDS SUMMARY | 2025-04-07 09:10 | XMS_ITS | Clinical Summary ---
Author Organization [facility] Address [address] 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
--- OUTSIDE RECORDS SUMMARY | 2025-04-07 09:10 | XMS_ITS | Encounter Summary ---
Author Organization [facility] Address [address] [facility] [facility] [place] [address] Care Team Providers Care Drop Forger Name Role Phone Unavailable Primary Care Provider Unavailabl e Encounter Details Date Type Department Care Team (Late st Contact Info) Description 09/08/2000 Outpatient Historical [facility] Imaging Services-See [place] [address] [place] [address] Clair Shah MD [address] [facility] [address] [place] [address] Other specified pre-operative examination (Primary Dx) Social History Tobacco Use Types Packs/Day Years Used Date Smoking Tobacco: Never Assessed Comments Unknown Sex and Gender Information Value Date Recorded Sex Assigned at Not on file Legal Sex Female 3:02 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
--- OUTSIDE RECORDS SUMMARY | 2025-04-07 09:10 | XMS_ITS | Encounter Summary ---
Author Organization 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
--- OUTSIDE RECORDS SUMMARY | 2025-04-07 09:10 | XMS_ITS | Encounter Summary ---
Author Organization [employer] [facility] Address [address] [place] [address] Care Team Providers Care Agate Setter Name Role Phone Unavailable Primary Care Provider Unavailabl e Encounter Details Date Type Department Care Team (Latest Contact Info) Description 12/18/2000 Outpatient Historical [facility] Noah Warner MD NO ADDRESS ON FILE Other specified disorders of liver (Primary Dx) Social History Tobacco Use Types Packs/Day Years Used Date Smoking Tobacco: Never Assessed Comments Unknown Sex and Gender Information Value Date Recorded Sex Assigned at Not on file Legal Sex Female 3:02 AM PIGMENT MIXER Gender Identity Not on file Sexual Orientation Not on file documented as of this encounter Plan of Treatment Not on file documented as of this encounter Visit Diagnoses Diagnosis Other specified disorders of liver- Primary documented in this encounter
--- OUTSIDE RECORDS SUMMARY | 2025-04-07 09:10 | XMS_ITS | Encounter Summary ---
Author Organization [facility] Address [address] [place] [address] Care Team Providers Care Paint Tinter Name Role Phone Unavailable Primary Care Provider Unavailabl e Encounter Details Date Type Department Care Team (Late st Contact Info) Description 09/21/2000 Outpatient Historical [facility]ERRIN-[facility] [place] [address] [place] [address] Clair Shah MD [address] [facility] [place] [phone] Follow-up examination, following unspecified surgery (Primary Dx) Social History Tobacco Use Types Packs/Day Years Used Date Smoking Tobacco: Never Assessed Comments Unknown Sex and Gender Information Value Date Recorded Sex Assigned at Not on file Legal Sex Female 3:02 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
--- OUTSIDE RECORDS SUMMARY | 2025-04-07 09:10 | XMS_ITS | Encounter Summary ---
Author Organization [facility] Address [address] [facility] [place] [address] Care Team Providers Care Member Services Coordinator Name Role Phone Unavailable Primary Care Provider Unavailabl e Encounter Details Date Type Department Care Team (Late st Contact Info) Description 08/14/2001 Outpatient Historical [facility] OBS[facility]ERRIN-See [place] [address] [place] [address] Clair Shah MD [address] [facility] [place] [phone] Routine medical exam (Primary Dx); Gynecologic examination; SCREENING MAL NEOP-RECTUM Social History Tobacco Use Types Packs/Day Years Used Date Smoking Tobacco: Never Assessed Comments Unknown Sex and Gender Information Value Date Recorded Sex Assigned at Not on file Legal Sex Female 3:02 AM 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
--- OUTSIDE RECORDS SUMMARY | 2025-04-07 09:10 | XMS_ITS | Encounter Summary ---
Author Organization [employer] [facility] Address [address] [facility] [place] [address] Care Team Providers Care Vp Construction Name Role Phone Unavailable Primary Care Provider Unavailabl e Encounter Details Date Type Department Care Team (Late st Contact Info) Description 09/08/2000 Outpatient Historical [facility] Clair Shah MD [address] [facility] [place] [phone] Abdominal or pelvic swelling, mass or lump, unspecified site (Primary Dx) Social History Tobacco Use Types Packs/Day Years Used Date Smoking Tobacco: Never Assessed Comments Unknown Sex and Gender Information Value Date Recorded Sex Assigned at Not on file 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
--- OUTSIDE RECORDS SUMMARY | 2025-04-07 09:10 | XMS_ITS | Encounter Summary ---
Author Organization [facility] Address [address] [place] [address] Care Team Providers Care Chute Tender Name Role Phone Unavailable Primary Care Provider Unavailabl e Encounter Details Date Type Department Care Team (Late st Contact Info) Description 10/24/2000 Outpatient Historical [facility] [place] [address] [place] [address] Clair Shah MD [address] [facility] [place] [address] [place] [phone] Follow-up examination, following unspecified surgery (Primary Dx); Benign danitza ovary Social History Tobacco Use Types Packs/Day Years Used Date Smoking Tobacco: Never Assessed Comments Unknown Sex and Gender Information Value Date Recorded Sex Assigned at Not on file 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
--- OUTSIDE RECORDS SUMMARY | 2025-04-07 09:10 | XMS_ITS | Encounter Summary ---
Author Organization [facility] Address [address] [place] [address] Care Team Providers Care Director Packaging Name Role Phone Unavailable Primary Care Provider Unavailabl e Encounter Details Date Type Department Care Team (Late st Contact Info) Description 09/08/2000 Outpatient Historical [facility]-See Cononr Johnson [address] [place] [address] Clair Shah MD [address] [facility] [place] [phone] Gynecologic examination (Primary Dx); Abdominal or pelvic swelling, mass or lump, unspecified site Social History Tobacco Use Types Packs/Day Years Used Date Smoking Tobacco: Never Assessed Comments Unknown Sex and Gender Information Value Date Recorded Sex Assigned at Not on file 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
[2025-04-07 09:32] LABS: Glucose Urine UA Negative (Normal); Nitrate Urine Negative (Negative); Specific Gravity, Urine 1.007 (1.005-1.030)
[2025-04-07 09:37] LABS: Add Urine Microscopic? YES
[2025-04-07 09:49] LABS: Hematocrit 44.2 % (36-47); Hemoglobin 14.80 g/dL (11.27-16.99); Mean Corpuscular HGB Conc 33.5 g/dL (30-55); Mean Corpuscular Hemoglobin 31.1 pg (27-33); Mean Corpuscular Volume 92.9 fl (85-98); Nucleated Red Blood Cells % 0 %; Platelet Count 247 10^3/cmm (157-399); Red Blood Count 4.76 10^6/uL (3.85-5.65); White Blood Count 8.69 10^3/uL (3.29-11.43)
[2025-04-07 10:04] VITALS: PULSE 82; O2SAT 92
[2025-04-07 10:21] LABS: Alanine Aminotransferase 13 U/L (0-33); Albumin Level 4.0 g/dL (3.5-5.2); Alkaline Phosphatase 90 U/L (35-105); Anion Gap 15.1 (5-19); Aspartate Amino Transferase 15 U/L (0-32); Blood Urea Nitrogen 7 mg/dL (8-23); Calcium 9.5 mg/dL (8.5-10.5); Carbon Dioxide 30 mmol/L (22-29); Chloride 101 mmol/L (98-107); Creatinine Clr Calc Pharmacy 50.5511; Globulin 3.3 g/dL (1.3-4.6); Glucose 118 mg/dL (65-115); Osmolality Calculated 295 mOsm/kg (285-295); Potassium 3.1 mmol/L (3.5-5.1); Sodium 143 mmol/L (136-145); Thyroid Stimulating Hormone 4.45 uIU/mL (0.27-4.20); Total Protein 7.3 g/dL (6.6-8.7)
[2025-04-07] MEDS: cefTRIAXone 1,000 mg SDV 1000 MG IVP (10:27)
--- NOTE | 2025-04-07 10:34 | ECG_ITS ---
[facility]: 2025-04-07 Pat Name: Venita Oconnell Department: Room: Gender: Female Sales Supervisor: : 1950 Requested By: Dell Steele Order Number: [id number] Reading MD: Measurements Intervals [place] Rate: 75 P: 66 [place]: 198 QRS: 50 QRSD: 97 T: 80 QT: 398 QTc: 447 Interpretive Statements SINUS RHYTHM MINIMAL ST DEPRESSION [0.025+ mV ST DEPRESSION] [email or web address]
== END 2025-04-07 11:33 | disposition home or self-care (01) ==
PROVIDERS: Emergency Provider Emergency Medicine; PCP Internal Medicine
DX: N30.00 Acute cystitis without hematuria (principal); S09.8XXA Other specified injuries of head, initial encounter; W19.XXXA Unspecified fall, initial encounter; E78.5 Hyperlipidemia, unspecified
CPT/HCPCS: 36415; 70450; 70486; 71045; 72125; 80053; 81001; 84443; 85025; 87077; 87086; 87186; 93005; 96374; 99285; J0696

== ENCOUNTER 2025-04-14 20:55 | Inpatient (IN) | payer MEDICARE, OTHER, SELFPAY ==
[2025-04-14 20:55] VITALS: BP 140/78; PULSE 77; RESP 14; TEMP 36.7; O2SAT 94; BMI 31.6
--- NOTE | 2025-04-14 21:03 | W.ED.GENADLT ---
HPI - General Adult General: Chief complaint: Altered Mental Status Stated complaint: Altered Mental Status Time Seen by Provider: 04/14/25 21:00 History of Present Illness: 74yo F w/pmhx of acute change in mental status. Patient is not responsive to verbal stimuli and does not follow commands. Per granddaughter at bedside, patient suffered a fall last Monday, was evaluated w/CT imaging of head/neck at our facility on 04/07: CT head: 1. No acute facial bone fractures. 2. Chronic opacifications of the frontal, anterior ethmoid and maxillary sinuses. May be due to chronic sinus disease or polyposis. 3. Mild soft tissue contusion centered over the RIGHT frontal bone. CT C spine: IMPRESSION: 1. No acute cervical spine fracture identified. 2. Very slight age-indeterminate anterior wedging of the T1 vertebral body. Possible small buckle fracture along the RIGHT lateral T1 vertebral body seen on the axial imaging. Correlate with area of tenderness to T1. CT findings can be correlated by MRI. 3. Disc protrusions and stenosis as above. On Monday, granddaughter saw her at the senior care and patient was well at that time. Today, she received a phone call that patient has not been herself today. Per report, she was agressive and not herself this morning. She did not eat her lunch like normal. Around 16:30 it appeared that patient may have had some difficulty with swallowing. No known new falls since previous evaluation. She's been treated w/abx for UTI but no fever reported. No URI sx, difficulty w/breathing. Patient has not been vomiting. Aside from not eating normally today, she's not had difficulty w/PO intake. No noted deformities or injures on extremities. Related Data Home Medications ?Medication ?Instructions ?Recorded ?Confirmed atorvastatin 40 mg tablet 40 mg PO QPM 03/16/23 04/07/25 conjugated estrogens 0.3 mg tablet 0.3 mg PO QAM 03/16/23 04/07/25 (Premarin) levothyroxine 100 mcg tablet 100 mcg PO QAM 03/16/23 04/07/25 propranolol 20 mg tablet 20 mg PO BID 03/21/24 04/07/25 acetaminophen 500 mg tablet 500 - 1,000 mg PO Q6H PRN 04/07/25 04/07/25 pain/fever brexpiprazole 0.5 mg tablet 0.5 mg PO DAILY 04/07/25 04/07/25 (Rexulti) duloxetine 30 mg capsule,delayed 30 mg PO DAILY 04/07/25 04/07/25 release folic acid 1 mg tablet 1 mg PO DAILY 04/07/25 04/07/25 memantine 5 mg tablet 5 mg PO BID 04/07/25 04/07/25 olanzapine 5 mg tablet 5 mg PO DAILY 04/07/25 04/07/25 pantoprazole 40 mg tablet,delayed 40 mg PO DAILY 04/07/25 04/07/25 release Previous Rx's ?Medication ?Instructions ?Recorded ferrous gluconate 324 mg (38 mg 324 mg PO BID #60 tabs 02/15/24 iron) tablet Allergies Allergy/AdvReac Type Severity Reaction Status Date / Time No Known Allergies Allergy Verified 03/21/24 12:40 [facility] PFSH: Medical History (Updated 04/15/25 @ 00:39 by Verna Hull MD) Hyperlipidemia Hypothyroidism History of hypothyroidism History of hyperlipidemia Subtrochanteric fracture of right femur Closed fracture of right hip Avulsion fracture of medial malleolus of right tibia Surgical History History of hysterectomy Family History Other Cancer Diabetes Social History Smoking and tobacco/nicotine status: never used tobacco/nicotine Alcohol intake: never Caregiver/support person: No Lives independently: Yes Household members: none Marital status: / Number of children: 1 service: No Current occupational status: retired Physical Exam Narrative: EXAM NARRATIVE: Vitals were reviewed. On exam, patient is not responsive to voice. PERRL. No eye deviation but patient does not folllow commands to test extraoccular movements. Healing R forehead swelling/hematoma, +R periorbital ecchymosis, most likely subacute. No increased work of breathing. Patient has SpO2 of 94% on room air. No hypotension or tachycardia. Abdomen is soft, nondistended and nontender. Patient does not appear to have any pain with palpation of bilateral shoulder, elbow, wrist, hip, knee joints and I do not appreciate any obvious deformity or injury. Patient withdraws to pain in all extremities. Course Vital Signs: Vital signs: Vital Signs Temperature 98.1 F 04/15/25 03:57 Pulse Rate 91 04/15/25 03:57 Respiratory Rate 17 04/15/25 03:57 Blood Pressure 110/68 04/15/25 03:57 Pulse Oximetry 92 04/15/25 03:57 Oxygen Delivery Me thod Room Air 04/15/25 03:57 MDM - General Adult Medical Decision Making 74-year-old female with a history of Alzheimer's dementia, high cholesterol, cerebrovascular disease, thyroid disease, presents w/AMS, decreased responsiveness, reported difficulty swallowing earlier in the day. No clear last known well time. Differential diagnosis includes but is not limited to, new fall/traumatic injury, ICH, CVA, MN, underlying infectious cause such as UTI, pna, endocrine abnormality, syncope, seizure, other. On exam, she's HDS but unresponsive to voice, does not open eyes on command or sternal rub, does not follow any commands. Withdraws to pain. Patient was evaluated with fingerstick blood glucose, CBC, CMP, procalcitonin, lactic acid, troponin, TSH, UA, blood culture, EKG, chest x-ray, CT head, CTA head and neck. Aside from mild hypokalemia, there is no significant electrolyte abnormalities. Troponin is mildly elevated but she has a negative delta. UA does not demonstrate infection. CT negative is negative for acute ICH, CVA or large vessel occlusion/stenosis. On reassessment, patient appears to be interactive again. Due to acute alteration in mental status and reported difficulty with swallowing, patient still may have suffered from a CVA. She may benefit from observation and further workup with MRI on inpatient basis. Patient was admitted for observation and further treatment. Lab Data 04/15/25 04:37 04/14/25 22:22 Radiology Impressions Chest X-Ray 04/14/25 21:12 IMPRESSION: No acute findings. Head CT 04/14/25 21:12 IMPRESSION: No acute intracranial abnormality. Senescent changes. Head/Neck CTA 04/14/25 21:12 IMPRESSION: No large vessel stenosis or occlusion. IMPRESSION: No stenosis or occlusion. REFERENCES: NASCET CRITERIA. The degree of stenosis in the cervical segment of the internal carotid artery is based on NASCET criteria. Normal is no stenosis. Mild is less than 50% stenosis. Moderate is 50-69% stenosis. Severe is 70% to 99% stenosis. Total occlusion is no detectable patent lumen. Laboratory Results WBC 8.29 10^3/uL (3.29-11.43) 04/14/25 22: RBC 4.57 10^6/uL (3.85-5.65) 04/14/25 22: Hgb 14.30 g/dL (11.27-16.99) 04/14/25 22:22 Hct 42.5 % (36-47) 04/14/25 22: MCV 93.0 fl (85-98) 04/14/25: MCH 31.3 pg (27-33) 04/14/25: MCHC 33.6 g/dL (30-55) 04/14/25: RDW 13.2 % (12.1-15.1) 04/14/25: Plt Count 237 10^3/cmm (157-399) 04/14/25 22: MPV 12.1 fL (7.4-10.4) H 04/14/25 22: Neut % (Auto) 58.1 % 04/14/25: Lymph % (Auto) 29.9 % 04/14/25 22:22 [place] % (Auto) 8.8 % 04/14/25: Eos % (Auto) 2.5 % 04/14/25: Baso % (Auto) 0.5 % 04/14/25: Neut # (Auto) 4.81 10^3/uL (1.8-7.7) 04/14/25: Lymph # (Auto) 2.5 10^3/uL (0.8-4.8) 04/14/25: [place] # (Auto) 0.7 10^3/uL (0.2-0.9) 04/14/25 22: Eos # (Auto) 0.2 10^3/uL (0.0-0.8) 04/14/25: Baso # (Auto) 0.0 10^3/uL (0.0-0.1) 04/14/25 22:22 Nucleated RBC % (auto) 0 % 04/14/25 22:22 Nucleated RBCs # 0.0 /100WBC 04/14/25 22:22 Sodium 140 mmol/L (136-145) 04/14/25 22:22 Potassium 3.0 mmol/L (3.5-5.1) L 04/14/25 22:22 Chloride 98 mmol/L (98-107) 04/14/25 22:22 Carbon Dioxide 30 mmol/L (22-29) H 04/14/25 22:22 Anion Gap 15.0 (5-19) 04/14/25 22:22 BUN 7 mg/dL (8-23) L 04/14/25 22:22 Creatinine 0.6 mg/dL (0.5-0.9) 04/14/25 22:22 GFR Calculation Not Reportable 04/14/25 22:22 Glucose 109 mg/dL (65-115) 04/14/25 22:22 Calculated Osmolality 289 mOsm/kg (285-295) 04/14/25 22:22 Lactic Acid 1.3 mmol/L (0.5-2.2) 04/14/25 22:22 Calcium 9.3 mg/dL (8.5-10.5) 04/14/25 22:22 Total Bilirubin 0.3 mg/dL (0.15-1.2) 04/14/25 22:22 AST 18 U/L (0-32) 04/14/25 22:22 ALT 14 U/L (0-33) 04/14/25 22:22 Alkaline Phosphatase 87 U/L (35-105) 04/14/25 22:22 Troponin T Baseline 17 ng/L (0-10) H 04/14/25 22:22 Total Protein 6.6 g/dL (6.6-8.7) 04/14/25 22:22 Albumin 4.1 g/dL (3.5-5.2) 04/14/25 22:22 Globulin 2.5 g/dL (1.3-4.6) 04/14/25 22:22 Procalcitonin 0.03 ng/mL (0-0.5) 04/14/25 22:22 TSH 5.58 uIU/mL (0.27-4.20) H 04/14/25 22:22 Urine Color Yellow (Yellow) 04/14/25 22:19 Urine Appearance Clear (CLEAR) 04/14/25 22:19 Urine pH 7.0 (5-7) 04/14/25 22:19 Ur Specific [place] 1.038 (1.005-1.030) H 04/14/25 22:19 Urine Protein Negative (Negative) 04/14/25 22:19 Urine Glucose (UA) Negative (Normal) 04/14/25 22:19 Urine Ketones Negative (Negative) 04/14/25 22:19 Urine Blood Negative (Negative) 04/14/25 22:19 Urine Nitrate Negative (Negative) 04/14/25 22:19 Urine Bilirubin Negative (Negative) 04/14/25 22:19 Urine Urobilinogen 0.2 mg/dL (Negative) 04/14/25 22:19 Ur Leukocyte Esterase Negative (Negative) 04/14/25 22:19 Urine RBC 0-2 /hpf (0-2) 04/14/25 22:19 Urine WBC 0-5 /hpf (0-5) 04/14/25 22:19 Ur Squamous Epith Cells 0-5 /hpf (0-5) 04/14/25 22:19 Amorphous Sediment Not Reportable 04/14/25 22:19 Urine Bacteria None seen /hpf (NONE) 04/14/25 22:19 Hyaline Casts 0-4 /lpf H 04/14/25 22:19 All radiology interpretation(s) finalized by discharge Discharge Plan Discharge Patient Disposition: Admitted As Inpatient Admit Provider: Roz Ivey Clinical Impression: Acute alteration in mental status, Difficulty in swallowing Condition: Stable Coding Level of Care Code ED Livestock Rancher for Juliana Romero
--- NOTE | 2025-04-14 21:04 | PC.NURSE ---
Pt unable to answer suicide assessment questions due to altered mental status.
--- OUTSIDE RECORDS SUMMARY | 2025-04-14 21:07 | XMS_ITS | Patient Health Record ---
Author Organization [facility] Address [address] [place] [address] Care Team Providers Care Band Director Name Role Phone Fan Pugh Primary Care Provider [phone] Allergies No Known Allergies Reason For Referral [...] W/U Status Risk Notes Problem Mixed hyperlipidemia (919021562) Mixed hyperlipidemia (E78.2) Active confirmed Problem Adjustment disorder with mixed disturbance of emotions AND conduct (58560706) Adjustment disorder with mixed disturbance of emotions and conduct (F43.25) Active confirmed Problem Insomnia (350573734) Insomnia (G47.00) Active confirmed Problem Obstructive sleep apnea syndrome (70536985) GILES (obstructive sleep apnea) (G47.33) Active confirmed Problem Adult failure to thrive syndrome (485160466) Failure to thrive in adult (R62.7) Active confirmed Problem Daytime somnolence (822904933235) Daytime somnolence (R40.0) Active confirmed Problem Memory loss (76588519) Memory loss (R41.3) Active confirmed Problem Cerebrovascular disease (33091241) Cerebral microvascular disease (I67.9) Active confirmed Problem Abnormal feces (720640666) Heme positive stool (R19.5) Active confirmed Problem Microcytic anemia (844059856) Microcytic anemia (D50.9) Active confirmed Problem 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) Brain atrophy (G31.9) Active confirmed Problem Vascular dementia, severe, with other behavioral disturbance (F01.C18) Active confirmed Problem Vascular dementia, severe, with psychotic disturbance (F01.C2) Active confirmed Plan Of Treatment No Information Insurance Providers Payer Name Payer Address Payer Phone Subscriber Number Group Number Insured Name Patient Relationship to Insured Coverage Start Date Coverage End Date [place] [address] [address] [place] [address] [id number] Venita Oconnell Self - patient is the insured [facility] [address] [address] [place] [address] [phone] [id number] Venita Oconnell Self - patient is the insured Medical (General) History Medical History History ICD Code Hypothyroidism high cholesertol Essential tremors GERD Depression memory loss Surgical History Surgery Date(Month/Year) cataract removal hysterectomy R hip surgery
--- OUTSIDE RECORDS SUMMARY | 2025-04-14 21:07 | XMS_ITS | Data Portability ---
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, [place], [address], 5 10:55:31 Patient TargetsNo targets recorded. Patient Instructions Encounter Date Encounter Id Patient Instructions Last Modified By Organization Details Last Modified Time 03/28/2025 [id number] - Continue with your current medications as [...] Address Organization Details Recorded Time Herpes zoster [id number] Active 2021 Shingles; Date: 03/2022; 2 1:34PM by Jonathan Yang RN, Office Visit; Promoted; acuity set as *; Not Available [facility] 3 03:08:54 section Active 2021 Section; x1- 1969; 2 1:33PM by Jonathan Yang RN, Office Visit; Promoted; acuity set as *; Not [facility] 3 03:08:53 History of hysterect elena 079117582 Active 2021 Hysterect elena; Abdominal ; 2 1:33PM by Jonathan Yang RN, Office Visit; Promoted; acuity set as *; Not Available [facility] 3 03:08:54 Appendect elena Active 2021 Appendect elena; 2 1:33PM by Jonathan Yang RN, Office Visit; Promoted; acuity set as *; Not Available [facility] 3 03:08:54 Mixed anxiety and depressiv e disorder 629912651 Active 2022 JONATHAN blackwell, [facility] 3 10:31:38 Hypothyro idism 32896101 Active 2022 JONATHAN YANG [facility], [facility] 3 10:34:39 Osteoporo sis 91928890 Active 2022 JONATHAN YANG [facility], [facility] 3 10:35:25 Hyperchol esterolem ia 09672154 Active 2022 JONATHAN YANG [facility], [facility] 3 10:36:05 Essential tremor 006026659 Active 2022 JONATHAN YANG [facility], [facility] 3 10:36:34 Heartburn 88301523 Active 2022 JONATHAN YANG [facility], [facility] 3 10:38:24 Memory impairmen t 669484165 Active 2022 JONATHAN YANG [facility], [facility] 3 10:40:11 Pain of multiple joints 81916647 Active 2022 JONATHAN YANG [facility], [facility] 3 10:40:54 Hormone replaceme nt therapy Active 2022 JONATHAN blackwell, [facility] 3 10:42:29 Bilateral lower leg edema 731341149 Active 2022 Deandre Bay DO [address] [place] [address], [phone] , [facility] 3 17:37:53 Systolic murmur 17688227 Active 2022 Deandre Bay DO [address] [place] [address], [phone] , [facility] 3 17:37:53 Pain in limb 56254955 Active 2023 JONATHAN blackwell [facility] 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 4 13:58:56 Insomnia 852825081 Active 2023 Tone Colorado MD [address] [place], [place] [id number] , [facility] 4 14:08:59 Localized swelling of right lower leg 68590001236 290548 Active 2024 Tone Colorado MD [address] [place], [place] [id number] , [facility] 5 14:53:44 Acute urinary tract infection 728055143 Active 2024 Tone Colorado MD [address] [place], [place] [id number] , [facility] 5 16:53:59 Problem Notes None recorded. Procedures Surgical History Date Name Laterality Status Provider Name and Address Organization Details Recorded Time [facility]ar[facility] 16:07:31 Imaging Results None recorded. Procedure [...] Updated DateTime 5 156.85 cm 30.8 kg/m2 98095.9 3 g 95 % 95 % 65 /min 18 /min 99.6 [degF] 128/88 mm[Hg] Tone Colorado MD [address] [place] [address], [phone], [facility], L.L[facility]CC[facility]vin 5 11:15:08 Date Recorded Body height Body mass index (BMI) Body weight Respiratory rate Oxygen saturation Oxygen saturation in Arterial blood by Pulse oximetry Heart rate Body temperature Systolic And Diastolic Provider Name and Address Organization Details Last Updated DateTime 4 156.85 cm 30.8 kg/m2 64556.9 3 g 20 /min 97 % 97 % 80 /min 98.8 [degF] 128/68 mm[Hg] JONATHAN YANG [facility] 4 16:17:46 Date Recorded Body height Oxygen saturation Oxygen saturation in Arterial blood by Pulse oximetry Heart rate Body temperature Systolic And Diastolic Provider Name and Address Organization Details Last Updated DateTime 5 156.85 cm 95 % 95 % 72 /min 97.4 [degF] 112/72 mm[Hg] Amanda [facility] 5 18:24:34 Date Recorded Body height Body mass index (BMI) Body weight Oxygen saturation Oxygen saturation in Arterial blood by Pulse oximetry Heart rate Respiratory rate Body temperature Systolic And Diastolic Provider Name and Address Organization Details Last Updated DateTime 5 156.85 cm 29.9 kg/m2 34014.9 6 g 95 % 95 % 76 /min 17 /min 96.8 [degF] 114/63 mm[Hg] Tone Colorado MD [address] [place], [address] [place] [address], L.L.C. 5 08:16:06 Date Recorded Body height Oxygen saturation Oxygen saturation in Arterial blood by Pulse oximetry Heart rate Respiratory rate Body temperature Systolic And Diastolic Provider Name and Address Organization Details Last Updated DateTime 4 156.85 cm 95 % 95 % 125 /min 20 /min 97.8 [degF] 142/84 mm[Hg] Tone Colorado MD [address] [place] [address], [phone] [place] [address], L.L.C. 4 09:55:59 Social History None recorded. Functional Status Question Answer Note LastModified by Organizat ion Details LastModified Time Do you use any illicit or recreational drugs? No Information not available 01/23/2023 What is your [...] 14:53:58 zoster live 2 completed Not Available [facility] 07/12/2023 14:53:58 Influenza, split virus, trivalent, preservative 0 completed Not Available [facility] 07/12/2023 14:53:58 Influenza, split virus, trivalent, preservative 1 completed Not Available [facility] 07/12/2023 14:53:58 Influenza, split virus, trivalent, preservative 2 completed Not Available [facility] 07/12/2023 14:53:58 Influenza, split virus, trivalent, preservative 5 completed Not Available [facility] 07/12/2023 14:53:58 pneumococcal polysaccharide PPV23 5 completed Not Available [facility] 07/12/2023 14:53:58 Influenza, split virus, quadrivalent, PF 3 [facility] 05/08/2023 13:57:22 Influenza, split virus, trivalent, PF 0 completed Not Available [facility] 03/28/2025 08:43:36 Influenza, split virus, trivalent, PF 4 completed Not Available [facility] 03/28/2025 08:43:36 zoster recombinant 3 completed JONATHAN blackwell, [facility] 10/26/2022 11:03:49 zoster recombinant 3 [facility] 10/26/2022 11:03:49 COVID-19, mRNA, LNP-S, PF, 100 mcg/0.5mL dose or 50 mcg/0.25mL dose 1 completed JONATHAN blackwell [facility] 10/26/2022 11:03:49 COVID-19, mRNA, LNP-S, PF, 100 mcg/0.5mL dose or 50 mcg/0.25mL dose 1 completed JONATHAN blackwell, [facility] 10/26/2022 11:03:49 COVID-19, mRNA, LNP-S, PF, 100 mcg/0.5mL dose or 50 mcg/0.25mL dose 1 completed JONATHAN MIXY rosalva [facility] 10/26/2022 11:03:49 COVID-19, mRNA, LNP-S, bivalent, PF, 50 mcg/0.5 mL or 25mcg/0.25 mL dose 2 completed JONATHAN blackwell [facility] 10/26/2022 11:03:49 pneumococcal polysaccharide PPV23 5 completed JONATHAN SADIA blackwell [facility] 10/26/2022 11:03:49 Tdap 0 completed [facility] 10/26/2022 11:03:49 Pneumococcal conjugate PCV 13 6 completed [facility] 10/26/2022 11:03:49 Past Encounters Encounter ID Performer Location Encounter Start Date Encounter Closed Date Diagnosis/Indication Diagnosis SNOMED-CT Code Diagnosis ICD10 Code Diagnosis IMO Codes Diagnosis Note [id number] Sarahy Kemp MD [facility] ([facility]) [address] [place] [phone] 10/26/2022 10:56:56 10/26/2022 13:13:14 Hypothyroidism 27519594 E03.9 Mixed anxi ety and depressive disorder 804398400 F41.8 Hypercholesterolemia 136 97097 E78.00 Glucose le serena outside reference range 953780106 R73.09 [id number] Deandre Bay DO [facility] ([facility]) [address] [place] [address] 01/23/2023 16:22:54 01/23/2023 19:15:02 Bilateral lower leg edema 466344184 R60.0 As below. Systolic murmur 24658106 R01.1 This appears to be new. With bilateral leg edema. Will obtain echo and labs to rule out possible congestive heart failure. Patient is to continue her Lasix every morning for now. Follow-up with PCP after testing. Hypothyroidism 17814920 E03.9 We will repeat thyroid labs and get a BNP due to concern for possible heart failure. We will have patient follow-up with PCP after testing. [id number] Sarahy Kemp MD [facility] ([facility]) [address] [place] [phone] 05/08/2023 13:20:39 05/09/2023 15:08:49 Anxiety 68821290 F41.9 Hypothyroidism 26820652 E03.9 Hyperglycemia 59227515 R 73.9 [id number] Sarahy Kemp MD [facility] ([facility]) [address] [place] [phone] 07/12/2023 14:53:28 07/12/2023 18:13:44 Hypercholesterolemia 54805077 E78.00 Heartburn 61558704 R12 Mixed anxi ety and depressive disorder 387626376 F41.8 Memory impairment 330730 006 R41.3 Essential tremor 2976569 09 G25.0 Hypothyroidism 23429565 E03.9 Pain in limb 65068177 M7 9.410 [id number] Sarahy Kemp MD [facility] ([facility]) [address] [place] [phone] 10/04/2023 15:20:14 10/04/2023 16:52:53 Hypothyroidism 66648416 E03.9 Memory impairment 818828 006 R41.3 Mixed anxi ety and depressive disorder 592181128 F41.8 Anxiety 45951302 F41.9 [id number] Tone Colorado MD [facility] ([facility]) [address] [place] [phone] 04/12/2024 13:27:44 04/16/2024 10:13:14 Mixed anxiety and depressive disorder 651567589 F41.8 Tolerating duloxetine . Dementia o f the Alzheimer type with behavioral disturbance 6628028538 101 G30.1 Concerned about agitation secondary to [...] additional medication especially sedating medication s. Insomnia 595854354 G47.0 0 Continue zaleplon Essential tremor 2241789 09 G25.0 Continue propranolo l. Hypercholesterolemia 136 89033 E78.00 Continue statin. Hypothyroidism 41495182 E03.9 Continue levothyrox ine. [id number] Tone Colorado MD [facility]) [address] [place], [place] [phone] 08/09/2024 13:29:05 08/13/2024 15:13:19 Localized swelling of right lower leg 4079888182 6748318 R22.41 Recommend that we proceed with venous Doppler for further evaluation . Bilateral lower leg edema 663029506 R60.0 We will check labs as discussed above. Recommend feet elevation and conservati ve measures. [id number] Tone Colorado MD [facility]) [address] [place] [phone] 12/27/2024 09:56:13 12/31/2024 11:16:23 Bilateral lower leg edema 057419609 R60.0 Recommend feet elevation and conservati ve measures. Dementia o f the Alzheimer type with behavioral disturbance 6082889802 101 G30.1 Concerned about agitation secondary to [...] medication especially sedating medication s. Hypercholesterolemia 136 11854 E78.00 Continue statin. Hypothyroidism 26937824 E03.9 Continue levothyrox ine. Insomnia 411355418 G47.0 0 Continue zaleplon [id number] Tone Colorado MD [facility] ([facility]) [address] [place] [phone] 03/28/2025 08:43:22 03/31/2025 12:52:24 Mixed anxiety and depressive disorder 514337906 F41.8 Tolerating duloxetine . Hypothyroidism 66649262 E03.9 Continue levothyrox ine. Osteoporosis 79627363 M8 1.0 Dementia o f the Alzheimer type with behavioral disturbance 6434162357 101 G30.1 Concerned about agitation secondary to [...] medication especially sedating medication s. Essential tremor 8417669 09 G25.0 Continue propranolo l. Insomnia 159335920 G47.0 0 Continue zaleplon Health Concerns Section Related Observation LastModified by Organization Detai ls LastModified Time None Recorded Concern Status LastModified by Organization Details LastModified Time None Recorded Advance Directives Directive None Recorded Payers Insurance Date Sequence Insurance Name Policy Number Policy Restrepo Covered Member ID Restrepo Member ID Guarantor Name 03/27/2025 [place] - [facility] (MEDICARE) Venita Oconnell [id number] Venita Oconnell 03/27/2025 2 () Venita Oconnell [id number] Venita Oconnell 03/27/2025 1 [place] Venita Oconnell [id number] Venita Oconnell Notes Date Note Type Note [...] her legs and walking Sarahy Kemp MD [address] [place] [address], [phone], [facility] 10/04/2023 16:39:38 04/12/20 24 text/htm l This is a 73-year-old female that was seen as a new patient at her apartment in memory care at [facility]. The patient was previously in other facilities [...] working well for her. Tone Colorado MD [address] [place] [address], [phone], [facility] 04/14/2024 10:02:13 08/09/19 25 text/htm l This is a 74-year-old female that was seen at her apartment in assisted living. The patient has been having increasing lower leg swelling with her right leg greater than her left. Patient has had some mild erythema, however this is improved slightly today. The patient denies any recent falls or injury. Tone Colorado MD [address] [place] [address], [phone], [facility] 08/11/2024 11:15:44 12/28/19 25 text/htm l Pt seen today as a 4 month follow up the patient denies any concerns. There is no staff or nursing concerns. Patient appears to be doing well on her current medications and there is no notable side effects. Follow up thyroid lab ordered TSH, FREE S9Sfhoc written and given to Alexander RICH at [facility]. Tone Colorado MD [address] [place] [address], [phone], [facility]. 12/29/2024 22:26:32 03/28/20 25 text/htm l The [...] apartment in assisted living. Tone Colorado MD [address] [place] [address], [phone], [facility] 03/29/2025 08:17:15 OBGyn Episode No OBEpisode recorded.
--- NOTE | 2025-04-14 21:12 | CTR_ITS ---
PROCEDURE INFORMATION: Exam: CT Head Without Contrast Exam date and time: 04/14/2025 9:36 PM Age: 74 years old Clinical indication: Altered mental status/memory loss; Additional info: Acute ams/difficulty swallowing TECHNIQUE: Imaging protocol: Computed tomography of the head without contrast. Radiation optimization: All CT scans at this facility use at least one of these dose optimization techniques: automated exposure control; mA and/or kV adjustment per patient size (includes targeted exams where dose is matched to clinical indication); or iterative reconstruction. COMPARISON: CT head wo con* [id number] 04/07/2025 8:56 AM RADIATION DOSE METRICS: Total DLP (mGy-cm): 987.24 FINDINGS: Brain: Age-related brain parenchymal atrophy. Areas of hypoattenuation in the periventricular and subcortical deep white matter likely on the basis of chronic microvascular ischemic changes. No acute intra cranial hemorrhage. No mass effect or midline shift. No definitive CT evidence of acute territorial infarction. Cerebral ventricles: Prominence of the lateral ventricular system likely on the basis of parenchymal volume loss. Paranasal sinuses: Ethmoidal sinus mucosal thickening Mastoid air cells: Visualized mastoid air cells are well aerated. Bones: Intact calvarium. Soft tissues: Right frontal scalp swelling. CT/CT head wo con* [id number] IMPRESSION: No acute intracranial abnormality. Senescent changes.
--- NOTE | 2025-04-14 21:12 | CTR_ITS ---
PROCEDURE INFORMATION: Exam: CTA Head With Contrast, Arteriography Exam date and time: 04/14/2025 9:39 PM Age: 74 years old Clinical indication: Drowsiness or somnolence; Additional info: Acute AMS, difficulty w/swallowing TECHNIQUE: Imaging protocol: Computed tomographic angiography of the head with contrast. Exam focused on the arteries. 3D rendering (Not supervised by radiologist): MIP and/or 3D reconstructed images were created by the technologist. Radiation optimization: All CT scans at this facility use at least one of these dose optimization techniques: automated exposure control; mA and/or kV adjustment per patient size (includes targeted exams where dose is matched to clinical indication); or iterative reconstruction. Contrast material: OMNI 350; Contrast volume: 100 ml; Contrast route: INTRAVENOUS (IV); COMPARISON: CT head wo con* [id number] 04/14/2025 9:36 PM RADIATION DOSE METRICS: Total DLP (mGy-cm): 422.52 FINDINGS: ANTERIOR CIRCULATION: Right internal carotid artery: Intracranial segment is patent with no significant stenosis. No aneurysm. Right middle cerebral artery: No occlusion or significant stenosis. No aneurysm. Right anterior cerebral artery: No occlusion or significant stenosis. No aneurysm. Left internal carotid artery: Intracranial segment is patent with no significant stenosis. No aneurysm. Left middle cerebral artery: No occlusion or significant stenosis. No aneurysm. Left anterior cerebral artery: No occlusion or significant stenosis. No aneurysm. POSTERIOR CIRCULATION: Right vertebral artery: No occlusion or significant stenosis. No aneurysm. Left vertebral artery: No occlusion or significant stenosis. No aneurysm. Basilar artery: No occlusion or significant stenosis. No aneurysm. Right posterior cerebral artery: No occlusion or significant stenosis. No aneurysm. Left posterior cerebral artery: No occlusion or significant stenosis. No aneurysm. Brain: No definite mass, mass effect, or midline shift. Senescent changes. Cerebral ventricles: No ventriculomegaly. Bones/joints: Pansinus mucosal thickening. No acute fracture. Soft tissues: Unremarkable. PROCEDURE INFORMATION: Exam: CTA Neck With Contrast Exam date and time: 04/14/2025 9:39 PM Age: 74 years old Clinical indication: Drowsiness or somnolence; Additional info: Acute AMS, difficulty w/swallowing TECHNIQUE: Imaging protocol: Computed tomographic angiography of the neck with contrast. Exam focused on the cervical segments of the vasculature. 3D rendering (Not supervised by radiologist): MIP and/or 3D reconstructed images were created by the technologist. Radiation optimization: All CT scans at this facility use at least one of these dose optimization techniques: automated exposure control; mA and/or kV adjustment per patient size (includes targeted exams where dose is matched to clinical indication); or iterative reconstruction. Contrast material: OMNI 350; Contrast volume: 100 ml; Contrast route: INTRAVENOUS (IV); COMPARISON: CT head wo con* [id number] 04/14/2025 9:36 PM RADIATION DOSE METRICS: Total DLP (mGy-cm): 422.52 FINDINGS: Right common carotid artery: No stenosis. No dissection or occlusion. Right internal carotid artery: No stenosis of the extracranial segment. No dissection or occlusion. Right external carotid artery: No occlusion or stenosis of the origin. Left common carotid artery: No stenosis. No dissection or occlusion. Left internal carotid artery: No stenosis of the extracranial segment. No dissection or occlusion. Left external carotid artery: No occlusion or stenosis of the origin. Right vertebral artery: No stenosis. No dissection or occlusion. Left vertebral artery: No stenosis. No dissection or occlusion. Soft tissues: Normal. No significant soft tissue swelling. Bones/joints: No acute fracture. CT/CT angio headneck* [id number] IMPRESSION: No large vessel stenosis or occlusion. IMPRESSION: No stenosis or occlusion. REFERENCES: NASCET CRITERIA. The degree of stenosis in the cervical segment of the internal carotid artery is based on NASCET criteria. Normal is no stenosis. Mild is less than 50% stenosis. Moderate is 50-69% stenosis. Severe is 70% to 99% stenosis. Total occlusion is no detectable patent lumen.
--- NOTE | 2025-04-14 21:12 | XRR_ITS ---
PROCEDURE INFORMATION: Exam: XR Chest Exam date and time: 04/14/2025 9:15 PM Age: 74 years old Clinical indication: Other: AMS TECHNIQUE: Imaging protocol: Radiologic exam of the chest. Views: 1 view. COMPARISON: CR XR chest 1V portable [id number] 04/07/2025 9:06 AM FINDINGS: Lungs: Unremarkable. No consolidation. Pleural spaces: Unremarkable. No pleural effusion. No pneumothorax. Heart/Mediastinum: Unremarkable. No cardiomegaly. Bones/joints: Unremarkable. XR/XR chest 1V portable [id number] IMPRESSION: No acute findings.
[2025-04-14] MEDS: iohexol 350 mg/mL 500 mL Btl (per mL) IV (21:43)
[2025-04-14 21:55] VITALS: BP 140/78; PULSE 90; RESP 18; O2SAT 92
--- NOTE | 2025-04-14 22:01 | ECG_ITS ---
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 Measurements Intervals [place] Rate: 89 P: 57 LA: 233 QRS: 78 QRSD: 86 T: 91 QT: 371 QTc: 453 Interpretive Statements Regular supraventricular rhythm possibly sinus Further interpretation is not possible Heavy baseline artifacts; Need to repeat the study. Electronically Signed On 04-15-2025 21:58:05 STONEMASON APPRENTICE by Jorge Yanes M.D. [email or web address]
[2025-04-14 22:37] LABS: Hematocrit 42.5 % (36-47); Hemoglobin 14.30 g/dL (11.27-16.99); Mean Corpuscular HGB Conc 33.6 g/dL (30-55); Mean Corpuscular Hemoglobin 31.3 pg (27-33); Mean Corpuscular Volume 93.0 fl (85-98); Nucleated Red Blood Cells % 0 %; Platelet Count 237 10^3/cmm (157-399); Red Blood Count 4.57 10^6/uL (3.85-5.65); White Blood Count 8.29 10^3/uL (3.29-11.43)
[2025-04-14 22:42] LABS: Glucose Urine UA Negative (Normal); Nitrate Urine Negative (Negative)
[2025-04-14 22:44] LABS: Add Urine Microscopic? YES
[2025-04-14 22:57] LABS: Lactic Sepsis W/Reflex 1.3 mmol/L (0.5-2.2)
[2025-04-14 22:58] LABS: Troponin(5th) Baseline 17 ng/L (0-10)
[2025-04-14 22:59] LABS: Specific Gravity, Urine 1.038 (1.005-1.030)
[2025-04-14 23:08] LABS: Procalcitonin 0.03 ng/mL (0-0.5); Thyroid Stimulating Hormone 5.58 uIU/mL (0.27-4.20)
[2025-04-14 23:19] LABS: Alanine Aminotransferase 14 U/L (0-33); Albumin Level 4.1 g/dL (3.5-5.2); Alkaline Phosphatase 87 U/L (35-105); Anion Gap 15.0 (5-19); Aspartate Amino Transferase 18 U/L (0-32); Blood Urea Nitrogen 7 mg/dL (8-23); Calcium 9.3 mg/dL (8.5-10.5); Carbon Dioxide 30 mmol/L (22-29); Chloride 98 mmol/L (98-107); Creatinine Clr Calc Pharmacy 54.3798; Globulin 2.5 g/dL (1.3-4.6); Glucose 109 mg/dL (65-115); Osmolality Calculated 289 mOsm/kg (285-295); Potassium 3.0 mmol/L (3.5-5.1); Sodium 140 mmol/L (136-145); Total Protein 6.6 g/dL (6.6-8.7)
[2025-04-15] VITALS (8 sets, daily range): BP systolic 108–161; BP diastolic 68–90; PULSE 65–101; RESP 14–20; TEMP 36.4–36.7; O2SAT 91–94
[2025-04-15 01:40] LABS: Troponin 5 2HR 14.74 ng/L (0-10)
[2025-04-15 01:42] LABS: Troponin 5 2HR Delta -2.26 ABS# (0-10)
--- NOTE | 2025-04-15 01:42 | PM.HP ---
Providers/Chief Complaint Admitting Physician: Roz Ivey MD--- admitted after 12 midnight Primary Care Provider: Tone Colorado MD Chief Complaint: Altered Mental Status History of Present Illness Venita Oconnell is a 74 year old female who was status post fall last 1 day 04/07/2025 patient was evaluated did okay and was sent back to the detention. Granddaughter visited patient at the detention and they evaluated that the patient was not herself. Patient had to be presented to the emergency room unresponsive and finally was admitted to [facility] as patient become more responsive and able to relate patient had been noted to have concussion from this fall. CT done was unremarkable there is no neck injuries. Patient was recently treated for UTI. Monitor and manage close head injury CT unremarkable of the head neck with no fractures Review of Systems Narrative: System review upon 10 organ reviewed is limited patient cannot contribute Medications/Allergies Home Medications ?Medication ?Instructions ?Recorded ?Confirmed ?Last Taken ?Type atorvastatin 40 mg tablet 40 mg PO QPM 03/16/23 04/07/25 03/20/24 History conjugated estrogens 0.3 mg tablet 0.3 mg PO QAM 03/16/23 04/07/25 03/21/24 History (Premarin) levothyroxine 100 mcg tablet 100 mcg PO QAM 03/16/23 04/07/25 03/21/24 History ferrous gluconate 324 mg (38 mg 324 mg PO BID #60 tabs 02/15/24 04/07/25 03/21/24 Rx iron) tablet propranolol 20 mg tablet 20 mg PO BID 03/21/24 04/07/25 03/20/24 History acetaminophen 500 mg tablet 500 - 1,000 mg PO Q6H PRN 04/07/25 04/07/25 Unknown History pain/fever brexpiprazole 0.5 mg tablet 0.5 mg PO DAILY 04/07/25 04/07/25 Unknown History (Rexulti) duloxetine 30 mg capsule,delayed 30 mg PO DAILY 04/07/25 04/07/25 Unknown History release folic acid 1 mg tablet 1 mg PO DAILY 04/07/25 04/07/25 Unknown History memantine 5 mg tablet 5 mg PO BID 04/07/25 04/07/25 Unknown History olanzapine 5 mg tablet 5 mg PO DAILY 04/07/25 04/07/25 Unknown History pantoprazole 40 mg tablet,delayed 40 mg PO DAILY 04/07/25 04/07/25 Unknown History release Allergies Allergy/AdvReac Type Severity Reaction Status Date / Time No Known Allergies Allergy Verified 03/21/24 12:40 PFSH Acute PFSH: Medical History Hyperlipidemia Hypothyroidism History of hypothyroidism History of hyperlipidemia Subtrochanteric fracture of right femur Closed fracture of right hip Avulsion fracture of medial malleolus of right tibia Surgical History History of hysterectomy Family History Other Cancer Diabetes Social History Smoking and tobacco/nicotine status: never used tobacco/nicotine Alcohol intake: never Caregiver/support person: No Lives independently: Yes Household members: none Marital status: / Number of children: 1 service: No Current occupational status: retired Vitals/I&O/Wt Last Vital Signs Temp 98.0 F 04/14/25 20:55 Pulse 65 04/15/25 01:25 Resp 16 04/15/25 01:25 BP 134/68 04/15/25 01:25 Pulse Ox 93 04/15/25 01:25 O2 Del Method Room Air 04/15/25 01:25 Weight last 48 hrs Weight 73.482 kg Physical Exam Narrative: Generally patient is doing better and reactive compared to the time she was in the emergency room. Patient is in here with change in mental status that had been there by since fall on 04/07/2025. HEENT normocephalic/atraumatic neck neck is supple cardiovascular heart is regular lungs are pretty much clear abdomen soft nontender nondistended unremarkable extremities intact no edema has good pulses neurology has no focality lab studies lab studies reviewed and noted. Data 04/15/25 04:37 04/14/25 22:22 Micro: Microbiology 04/14/25 22:27 Blood Culture - Preliminary Blood SPECIMEN COLLECTED 04/14/25 22:22 Blood Culture - Preliminary Blood SPECIMEN COLLECTED A&P Assessment and plan 1. Difficulty in swallowin. Acute alteration in mental status: 3. Hyperlipidemia: 4. Hypothyroidism: 5. Hypokalemia: 6. Status post fall: 7. Fall: Plan: Change in mental status - Patient admitted on [facility] floor with telemetry reference change in mental status - Change in mental status labile status post a fall 04 07 2025 - Patient had been evaluated and treated on prior hospitalization and now presenting with change in mental status that has since improved from the ED - CT repeated with no acute process - Much better and improved - No infectious etiology PDMP PDMP Reviewed: Not Reviewed Attestations Medical Necessity Statement*: System review significant for change in mental status patient knows her name but does not know where she is will need at least 2 midnights to optimize prior to discharge. Coding Level of Care Code Acute Code for Chg Fwd Diagnoses Difficulty in swallowing R13.10 Acute alteration in mental status R41.82 Hyperlipidemia E78.5 Hypothyroidism E03.9 Hypokalemia E87.6 Status post fall Z91.81 Fall W19.XXXA Time Spent (min) 60
[2025-04-15] MEDS: heparin 5,000 unit/mL INJ 1 mL 5000 UNIT SUBCUT ×2 (02:44→13:53)
[2025-04-15] MEDS: pantoprazole 40 mg SDV IVP (02:44)
[2025-04-15 05:23] LABS: Hematocrit 43.2 % (36-47); Hemoglobin 13.90 g/dL (11.27-16.99); Mean Corpuscular HGB Conc 32.2 g/dL (30-55); Mean Corpuscular Hemoglobin 30.4 pg (27-33); Mean Corpuscular Volume 94.5 fl (85-98); Nucleated Red Blood Cells % 0 %; Platelet Count 227 10^3/cmm (157-399); Red Blood Count 4.57 10^6/uL (3.85-5.65); White Blood Count 7.87 10^3/uL (3.29-11.43)
--- NOTE | 2025-04-15 10:04 | PC.PHAR ---
[facility] Patient did not have evening meds .
--- NOTE | 2025-04-15 11:32 | USCV_ITS ---
Venita Oconnell Age: 74 Gender: F : 1950 Exam Date: 04/15/2025 14:01 Ordering Phys: Diogo Sanchez MD Technologist: LINDA Exam Location: [facility] – [place] Indication: SoB BP: 117 / 74 HR: 84 Rhythm: Sinus Technical Quality: Adequate MEASUREMENTS (Male / Female) Normal Values 2D ECHO LV Diastolic Diameter PLAX 4.6 cm 4.2 - 5.9 / 3.9 - 5.3 cm IVS Diastolic Thickness 0.6 cm 0.6 - 1.0 / 0.6 - 0.9 cm IVS Systolic Thickness 0.9 cm LVPW Diastolic Thickness 0.8 cm 0.6 - 1.0 / 0.6 - 0.9 cm LVPW Systolic Thickness 0.8 cm LVOT Diameter 2.0 cm LV Ejection Fraction 2D Teich 22.4 % LV Ejection Fraction MOD 4C 59.8 % LV Ejection Fraction MOD 2C 62.3 % LV Ejection Fraction 2C AL 64.2 % LA Diameter 2.4 cm RA Systolic Volume 4C AL 23.4 ml RA Systolic Volume 4C MOD 22.0 ml LA Sys Volume AL 37.0 cm cubed LA Sys Volume Index AL 20.7 cm cubed/m squared Aorta at Sinotubular Diameter 1.7 cm IVC Diameter 1.8 cm M-MODE LA Ao Ratio MM 1.3 AV Cusp Separation MM 1.4 cm DOPPLER AV Peak Velocity 172.7 cm/s LVOT Peak Velocity 113.0 cm/s AV Area Cont Eq vti 2.1 cm squared AV Area Cont Eq pk 2.0 cm squared MV Peak Velocity 127.0 cm/s MV Area PHT 5.9 cm squared Mitral E to A Ratio 0.8 TR Peak Velocity 82.0 cm/s TR Peak Gradient 2.7 mmHg TV Peak E Velocity 66.0 cm/s PV Peak Velocity 95.0 cm/s FINDINGS Left Ventricle Normal left ventricular size and systolic function, EF 64%. Mild left ventricular hypertrophy. No regional wall motion abnormalities. Grade I/IV diastolic dysfunction (abnormal relaxation filling pattern), normal to mildly elevated filling pressures. Right Ventricle Normal right ventricular size and systolic function. Right Atrium Normal right atrial size. Left Atrium Normal left atrial size. IA Septum Appears to be intact Mitral Valve No gross abnormalities noted Aortic Valve Thickened aortic valve. Tricuspid Valve No gross abnormalities noted Pulmonic Valve Pulmonic valve not well visualized. Pericardium No pericardial effusion. Aorta Normal diameter of the aortic root and ascending thoracic aorta. IVC Inferior vena cava not visualized. CONCLUSIONS Normal left ventricular size and systolic function, EF 64%. Mild left ventricular hypertrophy. No regional wall motion abnormalities. Grade I/IV diastolic dysfunction (abnormal relaxation filling pattern), normal to mildly elevated filling pressures. Thickened aortic valve. There is no pericardial effusion. There are no intracardiac masses. Compared to the study from 02/21/2023, there may not be a significant change Dr Jorge Yanes MD FACC (Electronically Signed) Final Date: 16 April 2025 08:28 S
--- NOTE | 2025-04-15 14:50 | P.PN_ITS ---
Subjective 2 Subjective: Patient was seen this morning, currently alert oriented x 2, following all commands, denies any fevers, chills, no cough, no lightheadedness, dizziness, she has had a few falls, but denies falling this time, she was found slumped over in a chair by [facility] staff at the [facility], she denies any pain complaints, no headache, no blurry vision, no nausea, no vomiting, no abdominal pain, no flank pain no chest pain Vitals/I&O/Wt Last Vital Signs Temp 97.9 F 04/15/25 11:39 Pulse 88 04/15/25 11:39 Resp 16 04/15/25 11:39 BP 117/74 04/15/25 11:39 Pulse Ox 91 04/15/25 11:39 O2 Del Method Room Air 04/15/25 11:39 04/14/25 04/15/25 04/15/25 22:59 06:59 14:59 Intake Total 1480.00 / 1480.00 Balance 1480.00 / 1480.00 Weight last 48 hrs Weight 73.227 kg Weight 73.227 kg Weight 73.482 kg Physical Exam 2 Const: COMMON NORMALS: no acute distress ORIENTATION/CONSCIOUSNESS: Yes awake, Yes oriented to person and Yes oriented to place; not oriented to time Eye: COMMON NORMALS: Equal, round and reactive pupils present PUPIL: Yes Equal, round and reactive pupils present Resp: COMMON NORMALS: normal respiratory effort, No retractions, No use of accessory muscles and clear to auscultation bilaterally AUSCULTATION: clear to auscultation bilaterally Cardio: COMMON NORMALS: regular rate, regular rhythm, S1 normal heart sound present and S2 normal heart sound present RATE: regular rate RHYTHM: r egular rhythm HEART SOUNDS: S1 normal heart sound present and S2 normal heart sound present GI: COMMON NORMALS: Normal to inspection, nondistended, normoactive bowel sounds present and non-tender Back/Pelvis: OTHER: No CVA tenderness Extremity: COMMON NORMALS: no calf tenderness and no pedal edema Neuro: SENSORIUM/ORIENTATION: Yes oriented to person, Yes oriented to place and No oriented to time Psych: COMMON NORMALS: mental status grossly normal Data 04/15/25 04:37 04/14/25 22:22 Micro: Microbiology 04/14/25 22:27 Blood Culture - Preliminary Blood SPECIMEN COLLECTED 04/14/25 22:22 Blood Culture - Preliminary Blood SPECIMEN COLLECTED A&P Assessment and plan 1. Difficulty in swallowin. Acute alteration in mental status: 3. Hyperlipidemia: 4. Hypothyroidism: 5. Hypokalemia: 6. Status post fall: 7. Fall: Plan: Altered mental status -Etiology unclear - CT/CT head wo con* [id number] IMPRESSION: No acute intracranial abnormality. Senescent changes. - CT/CT angio headneck* [id number] IMPRESSION: No large vessel stenosis or occlusion. IMPRESSION: No stenosis or occlusion. - Urinalysis within normal limits - Chest x-ray no focal pneumonia - Cardiac echo - Telemetry monitoring - Neurochecks - NIH stroke scale -full code - Heparin for DVT prophylaxis PDMP PDMP Reviewed: Not Reviewed Attestations 2 Medical Necessity Statement*: Patient requires hospitalization for altered mental status Diagnoses Difficulty in swallowing R13.10 Acute alteration in mental status R41.82 Hyperlipidemia E78.5 Hypothyroidism E03.9 Hypokalemia E87.6 Status post fall Z91.81 Fall W19.XXXA
[2025-04-16] VITALS: BP 155/87; PULSE 82; RESP 16; TEMP 36.6; O2SAT 94
[2025-04-16] MEDS: pantoprazole 40 mg SDV IVP (02:43)
[2025-04-16 04:00] VITALS: BP 149/78; PULSE 83; RESP 17; TEMP 36.4; O2SAT 95
[2025-04-16 05:18] LABS: Alanine Aminotransferase 12 U/L (0-33); Albumin Level 3.8 g/dL (3.5-5.2); Alkaline Phosphatase 81 U/L (35-105); Anion Gap 15.2 (5-19); Aspartate Amino Transferase 18 U/L (0-32); Blood Urea Nitrogen 4 mg/dL (8-23); Calcium 9.5 mg/dL (8.5-10.5); Carbon Dioxide 29 mmol/L (22-29); Chloride 103 mmol/L (98-107); Creatinine Clr Calc Pharmacy 54.2820; Globulin 3.2 g/dL (1.3-4.6); Glucose 115 mg/dL (65-115); Magnesium 1.6 mg/dL (1.7-2.3); Osmolality Calculated 296 mOsm/kg (285-295); Potassium 3.2 mmol/L (3.5-5.1); Sodium 144 mmol/L (136-145); Total Protein 7.0 g/dL (6.6-8.7)
[2025-04-16 05:19] LABS: Lactic Sepsis W/Reflex 1.0 mmol/L (0.5-2.2)
[2025-04-16 08:12] VITALS: BP 139/72; BP 154/85; BP 159/74; PULSE 83; PULSE 88; PULSE 92
[2025-04-16 08:19] VITALS: BP 177/88; PULSE 101; RESP 17; TEMP 36.6; O2SAT 90
[2025-04-16 08:29] LABS: Hematocrit 43.6 % (36-47); Hemoglobin 14.70 g/dL (11.27-16.99); Mean Corpuscular HGB Conc 33.7 g/dL (30-55); Mean Corpuscular Hemoglobin 31.2 pg (27-33); Mean Corpuscular Volume 92.6 fl (85-98); Nucleated Red Blood Cells % 0 %; Platelet Count 245 10^3/cmm (157-399); Red Blood Count 4.71 10^6/uL (3.85-5.65); White Blood Count 7.86 10^3/uL (3.29-11.43)
[2025-04-16] MEDS: ondansetron 2 mg/ML SDV 2 mL 4 MG IVP (08:33)
[2025-04-16 09:25] LABS: Slide Review Slide Review Perform
--- NOTE | 2025-04-16 09:27 | PC.CHAP ---
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 tool trouble shooter visit [] Patient/Family/Request visit [] Outpatient visit [] Follow-up visit [] Physician referral [] Code/Alert [x] Routine visit [] Staff referral [] Actively dying [] Patient sleeping [] Family support [] [] Out of room [] Palliative care [] [] Receiving care in room [] Pre-surgical visit [] Trauma [] Long length of stay [] ICU visit [] Other: Relational/Emotional Strength [x] Patient feels connected with others/family/visitors/staff [] Distress [] Loneliness/isolation [] Abandonment Spirituality of Patient [x] Person of Maureen [] Attends Episcopal of their Maureen [x] Believes in Prayer [] Reads Bible or Zoroastrian materials [] There are Spiritual issues to be addressed Process Checker Interventions [x] Prayer [] Active listening [x] Non-anxious presence [x] Spiritual/emotional support [] Crisis/trauma care [] Spiritual counseling [] Bereavement support [] Provided bereavement packet [] Provided Bible/devotional materials [] Provided toy/stuffed animal, coloring book to patient or family member [] Provided Communion [] Anointing/Tim[place]lake [] Salvation [x] Completed spiritual assessment [] Other: Impact on Illness or Injury [] Angry [] Fearful [] Anxious [] Often cries [] Exhaustion [] Unable to work [] Unable to attend evangelical [] Unable to walk/stand [] Unable to read [] Unable to drive [] Unable to eat/drink [] Unable to sleep [] Unable to be with family [] Patient intubated [] Other: Summary Time spent with patient 5 min
--- NOTE | 2025-04-16 09:42 | CT_ITS ---
WS: [id number] CT CHEST, ABDOMEN, AND PELVIS TECHNIQUE: Noncontrast CT of the chest, abdomen, and pelvis with coronal and sagittal reformatted images. CLINICAL INFORMATION: weakness, DLP: 788.[address] scans at [facility] use at least one of these dose optimization techniques: automated exposure control; mA and/or kV adjustment per patient size (includes targeted exams where dose is matched to clinical indication); or iterative reconstruction. CT CHEST: Aortic calcification. Coronary calcification. No mediastinal or hilar lymphadenopathy. No axillary lymphadenopathy. Lungs are well aerated. No acute pulmonary infiltrates. CT ABDOMEN AND PELVIS: Incidental hepatic cysts. Vicarious excretion of contrast in gallbladder. Small esophageal hiatal hernia. Normal noncontrast spleen. Splenic granulomas. Adrenal glands are normal. No hydronephrosis. Normal noncontrast pancreas. Normal caliber abdominal aorta. Aortic calcification. No evidence of high-grade small or large bowel obstruction. Tiny fat-containing umbilical hernia.No free fluid in the abdomen or pelvis. Screw and noel fixation RIGHT hip. CT/[place] [id number] IMPRESSION: 1. Lungs are well aerated. No acute pulmonary infiltrates. 2. No hydronephrosis in either kidney. Vicarious excretion of contrast in the gallbladder. 3. A few incidental hepatic cysts. 4. Small esophageal hiatal hernia. No hydronephrosis in either kidney. 5. No other acute findings
[2025-04-16 11:14] VITALS: BP 173/92; PULSE 83; RESP 17; TEMP 36.7; O2SAT 92
--- NOTE | 2025-04-16 13:26 | P.PN_ITS ---
Subjective 2 Subjective: Patient was seen this, she is alert to person, not to place, to time, she is confused this morning, does not know why she is in the hospital she tells me that she does not feel well, denies feeling nauseous, no chest pain, shortness of breath, no abdominal pain, no diarrhea she tells me she does not feel well, but has no localized pain, no fevers Vitals/I&O/Wt Last Vital Signs Temp 98.0 F 04/16/25 11:14 Pulse 83 04/16/25 11:14 Resp 17 04/16/25 11:14 BP 173/92 04/16/25 11:14 Pulse Ox 92 04/16/25 11:14 O2 Del Method Room Air 04/16/25 11:14 04/15/25 04/16/25 04/16/25 22:59 06:59 14:59 Intake Total 120 / 1600.00 240 / 240 Output Total 400 / 400 100 / 500 400 / 400 Balance -280 / 1200.00 -100 / 1100.00 -160 / -160 Weight last 48 hrs Weight 72.121 kg Weight 73.227 kg Weight 73.227 kg Weight 73.482 kg Physical Exam 2 Const: COMMON NORMALS: no acute distress ORIENTATION/CONSCIOUSNESS: Yes awake and Yes oriented to person; not oriented to place and not oriented to time Eye: COMMON NORMALS: Equal, round and reactive pupils present PUPIL: Yes Equal, round and reactive pupils present Neck/C-Spine: COMMON NORMALS: no JVD Resp: COMMON NORMALS: normal respiratory effort, No retractions, No use of accessory muscles and clear to auscultation bilaterally AUSCULTATION: clear to auscultation bilaterally Cardio: COMMON NORMALS: no JVD, regular rate, regular rhythm, S1 normal heart sound present and S2 normal heart sound present RATE: regular rate RHYTHM: regular rhythm HEART SOUNDS: S1 normal heart sound present and S2 normal heart sound present GI: COMMON NORMALS: Normal to inspection, nondistended, normoactive bowel sounds present and non-tender Extremity: COMMON NORMALS: no pedal edema Neuro: SENSORIUM/ORIENTATION: Yes oriented to person, No oriented to place and No oriented to time OTHER: Can do neurologic testing, she has a slight left facial droop family members have told me that this is chronic She has equal medical director occupational health strength bilateral upper and lower extremities, [id number] is intact Does have a resting tremor Psych: COMMON NORMALS: mental status grossly normal Data 04/16/25 04:50 04/16/25 04:50 Micro: Microbiology 04/14/25 22:27 Blood Culture - Preliminary Blood NEGATIVE TO DATE 04/14/25 22:22 Blood Culture - Preliminary Blood NEGATIVE TO DATE A&P Assessment and plan 1. Difficulty in swallowin. Acute alteration in mental status: 3. Hyperlipidemia: 4. Hypothyroidism: 5. Hypokalemia: 6. Status post fall: 7. Fall: Plan: Altered mental status -Etiology unclear - CT/CT head wo con* [id number] IMPRESSION: No acute intracranial abnormality. Senescent changes. - CT/CT angio headneck* [id number] IMPRESSION: No large vessel stenosis or occlusion. IMPRESSION: No stenosis or occlusion. - Urinalysis within normal limits - Chest x-ray no focal pneumonia - Cardiac echo pending -She does not feel well, she feels sick she tells me will do CT chest Abdo pelvis to rule out infectious etiology -Due to persistent encephalopathy, will do MRI brain -Does have abnormal left facial droop which family members yesterday told me that is chronic, no other focal neurologic deficits, no word finding difficulty, slurring her words, she is able to follow commands a stroke scale 0 - Telemetry monitoring - Neurochecks - NIH stroke scale -full code - Heparin for DVT prophylaxis PDMP PDMP Reviewed: Not Reviewed Attestations 2 Medical Necessity Statement*: Patient requires multiple history for altered mental status Diagnoses Difficulty in swallowing R13.10 Acute alteration in mental status R41.82 Hyperlipidemia E78.5 Hypothyroidism E03.9 Hypokalemia E87.6 Status post fall Z91.81 Fall W19.XXXA
[2025-04-16] MEDS: heparin 5,000 unit/mL INJ 1 mL 5000 UNIT SUBCUT (14:04)
--- NOTE | 2025-04-16 15:05 | MRR_ITS ---
PROCEDURE INFORMATION: Exam: MR Head Without Contrast Exam date and time: 04/16/2025 3:49 PM Age: 74 years old Clinical indication: Altered mental status/memory loss; Confusion or disorientation; Additional info: AMS TECHNIQUE: Imaging protocol: Magnetic resonance imaging of the head without contrast. COMPARISON: 1. CT angio headneck* [id number] 04/14/2025 9:[address] head wo con* [id number] 04/14/2025 9:36 PM FINDINGS: Brain: No territorial diffusion restriction. No acute intracranial hemorrhage. No extra-axial collections. No midline shift or significant mass effect. [id number] involutional white matter changes with mild volume loss of the brain similar to the comparison noncontrast CT. The major intracranial arterial flow voids are maintained. Cerebral ventricles: Ventricular size is unchanged. No significant interval enlargement. Bones: No acute osseous abnormality. Paranasal sinuses: There is opacification of the ethmoid air cells and maxillary sinuses with T2 hypointense secretions suggesting chronicity. Mastoid air cells: Mastoid air cells are well-aerated. Orbital cavities: Bilateral lens replacements. Soft tissues: No acute soft tissue findings. MR/MR head wo con* [id number] IMPRESSION: 1. No acute intracranial abnormality. 2. Chronic appearing ethmoid and maxillary sinus inflammation possibly related to chronic allergic fungal sinusitis similar to previous.
--- NOTE | 2025-04-16 16:29 | PC.OT ---
OT EVALUATION ATTEMPTED. FIRST ATTEMPT, PATIENT IN VIDALES WITH [employer]ORATORY TECHNICIAN AND CHARGE NURSE AND CHARGE NURSE WAS ATTEMPTING TO REDIRECT THE PATIENT SHE APPEARED UPSET. AT SECOND ATTEMPT, THE PATIENT WAS OFF OF FLOOR TO MRI
[2025-04-16 16:57] VITALS: BP 173/92; PULSE 83; RESP 16; TEMP 36.7; O2SAT 92
--- NOTE | 2025-04-17 15:01 | P.DS_ITS ---
Discharge Providers Date of Admission: 04/15/25 00:38 Date of Discharge: April 17, 2025 Attending Provider at Admission: Roz Ivey MD Attending Provider at Discharge: Diogo Sanchez MD Primary Care Provider: Tone Colorado MD Diagnoses at Discharge Discharge Diagnosis 1. Difficulty in swallowin. Acute alteration in mental status: 3. Hyperlipidemia: 4. Hypothyroidism: 5. Hypokalemia: 6. Status post fall: 7. Fall: Reason for Visit Reason for Visit: Altered Mental Status Hospital Course Hospital Course This is a 74-year-old female with past medical history of hypothyroidism, hyperlipidemia, who presents [facility] for altered mental status Altered mental status -Patient presented to [facility] due to altered mental status, recently treated for UTI -Etiology likely associated with fall, concussion, with underlying dementia - CT/CT head wo con* [id number] IMPRESSION: No acute intracranial abnormality. Senescent changes. - CT/CT angio headneck* [id number] IMPRESSION: No large vessel stenosis or occlusion. IMPRESSION: No stenosis or occlusion. -MRI brain - MR/MR head wo con* [id number] IMPRESSION: 1. No acute intracranial abnormality. 2. Chronic appearing ethmoid and maxillary sinus inflammation possibly related to chronic allergic fungal sinusitis similar to previous. - Urinalysis within normal limits - Chest x-ray no focal pneumonia -CT chest abdomen pelvis no acute findings - Cardiac echo CONCLUSIONS Normal left ventricular size and systolic function, EF 64%. Mild left ventricular hypertrophy. No regional wall motion abnormalities. Grade I/IV diastolic dysfunction (abnormal relaxation filling pattern), normal to mildly elevated filling pressures. Thickened aortic valve. There is no pericardial effusion. There are no intracardiac masses. Compared to the study from 02/21/2023, there may not be a significant change -On discharge patient is alert oriented x 2, following all commands, no focal neurologic deficits, no slurring of her words, no focal weakness -She does have some bruising, around her right orbit, but no pain complaints -She does have a slight left facial droop but family reports that this is chronic, NIH stroke scale is 0 - She was monitored - She remains alert oriented x 2, following all commands no focal large deficits continues to have slight left facial droop no word finding difficulty no slurring words - No acute findings as above - I suspect some of patient's altered mental status on admission was secondary to her fall, concussion, with underlying dementia - Nonetheless discharged on aspirin with close follow-up with neurology - Discussed with patient to avoid screen time as there is concerns for concussion, - Will also order event monitor on discharge Physical Exam Const: COMMON NORMALS: no acute distress ORIENTATION/CONSCIOUSNESS: Yes awake, Yes oriented to person and Yes oriented to place; not oriented to time Resp: COMMON NORMALS: normal respiratory effort, No retractions, No use of accessory muscles and clear to auscultation bilaterally AUSCULTATION: clear to auscultation bilaterally Cardio: COMMON NORMALS: regular rate, regular rhythm, S1 normal heart sound present and S2 normal heart sound present RATE: regular rate RHYTHM: regular rhythm HEART SOUNDS: S1 normal heart sound present and S2 normal heart sound present GI: COMMON NORMALS: Normal to inspection, nondistended, normoactive bowel sounds present and non-tender Extremity: COMMON NORMALS: no pedal edema Neuro: COMMON NORMALS: CN's II-XII intact bilaterally, moves all extremities and no focal motor deficits SENSORIUM/ORIENTATION: Yes oriented to person, Yes oriented to place and No oriented to time Psych: COMMON NORMALS: mental status grossly normal Discharge Data Studies Completed and Pending Completed Studies During Hospitalization Category Date Time Status CT angio head neck [CT angio headneck* [id number]] Cat Scan 04/14/25 21:[address] chest abdomen pelvis [[place] [id number] Cat Scan 04/16/25 09:42 Completed ] Routine CT head wo con* [id number] Stat Cat Scan 04/14/25 21:12 Completed XR chest 1V portable [id number] Stat Exams 04/14/25 21:12 Completed MR head wo con* [id number] Stat MRI 04/16/25 15:05 Completed CV. echo complete* [id number] Routine Ultrasound 04/15/25 11:32 Completed Pending at discharge Category Date Time Status Blood Culture Stat Lab 04/14/25 22:27 Results Radiology Impressions Chest X-Ray 04/14/25 21:12 IMPRESSION: No acute findings. Head CT 04/14/25 21:12 IMPRESSION: No acute intracranial abnormality. Senescent changes. Head/Neck CTA 04/14/25 21:12 IMPRESSION: No large vessel stenosis or occlusion. IMPRESSION: No stenosis or occlusion. REFERENCES: NASCET CRITERIA. The degree of stenosis in the cervical segment of the internal carotid artery is based on NASCET criteria. Normal is no stenosis. Mild is less than 50% stenosis. Moderate is 50-69% stenosis. Severe is 70% to 99% stenosis. Total occlusion is no detectable patent lumen. Chest/Abdomen/Pelvis CT 04/16/25 09:42 IMPRESSION: 1. Lungs are well aerated. No acute pulmonary infiltrates. 2. No hydronephrosis in either kidney. Vicarious excretion of contrast in the gallbladder. 3. A few incidental hepatic cysts. 4. Small esophageal hiatal hernia. No hydronephrosis in either kidney. 5. No other acute findings Head MRI 04/16/25 15:05 IMPRESSION: 1. No acute intracranial abnormality. 2. Chronic appearing ethmoid and maxillary sinus inflammation possibly related to chronic allergic fungal sinusitis similar to previous. Laboratory Results WBC 7.86 10^3/uL (3.29-11.43) 04/16/25 04:50 RBC 4.71 10^6/uL (3.85-5.65) 04/16/25 04:50 Hgb 14.70 g/dL (11.27-16.99) 04/16/25 04:50 Hct 43.6 % (36-47) 04/16/25 04:50 MCV 92.6 fl (85-98) 04/16/25 04:50 MCH 31.2 pg (27-33) 04/16/25 04:50 MCHC 33.7 g/dL (30-55) 04/16/25 04:50 RDW 13.0 % (12.1-15.1) 04/16/25 04:50 Plt Count 245 10^3/cmm (157-399) 04/16/25 04:50 MPV 13.2 fL (7.4-10.4) H 04/16/25 04:50 Neut % (Auto) 63.4 % 04/16/25 04:50 Lymph % (Auto) 25.2 % 04/16/25 04:50 [place]aca % (Auto) 7.8 % 04/16/25 04:50 Eos % (Auto) 2.8 % 04/16/25 04:50 Baso % (Auto) 0.5 % 04/16/25 04:50 Neut # (Auto) 4.99 10^3/uL (1.8-7.7) 04/16/25 04:50 Lymph # (Auto) 2.0 10^3/uL (0.8-4.8) 04/16/25 04:50 [place]aca # (Auto) 0.6 10^3/uL (0.2-0.9) 04/16/25 04:50 Eos # (Auto) 0.2 10^3/uL (0.0-0.8) 04/16/25 04:50 Baso # (Auto) 0.0 10^3/uL (0.0-0.1) 04/16/25 04:50 Nucleated RBC % (auto) 0 % 04/16/25 04:50 Nucleated RBCs # 0.0 /100WBC 04/16/25 04:50 Sodium 144 mmol/L (136-145) 04/16/25 04:50 Potassium 3.2 mmol/L (3.5-5.1) L 04/16/25 04:50 Chloride 103 mmol/L (98-107) 04/16/25 04:50 Carbon Dioxide 29 mmol/L (22-29) 04/16/25 04:50 Anion Gap 15.2 (5-19) 04/16/25 04:50 BUN 4 mg/dL (8-23) L 04/16/25 04:50 Creatinine 0.5 mg/dL (0.5-0.9) 04/16/25 04:50 GFR Calculation Not Reportable 04/16/25 04:50 Glucose 115 mg/dL (65-115) 04/16/25 04:50 POC Glucose 118 mg/dL (70-110) H 04/16/25 06:00 Calculated Osmolality 296 mOsm/kg (285-295) H 04/16/25 04:50 Lactic Acid 1.0 mmol/L (0.5-2.2) 04/16/25 04:50 Calcium 9.5 mg/dL (8.5-10.5) 04/16/25 04:50 Phosphorus 3.0 mg/dL (2.5-4.5) 04/16/25 04:50 Magnesium 1.6 mg/dL (1.7-2.3) L 04/16/25 04:50 Total Bilirubin 0.4 mg/dL (0.15-1.2) 04/16/25 04:50 AST 18 U/L (0-32) 04/16/25 04:50 ALT 12 U/L (0-33) 04/16/25 04:50 Alkaline Phosphatase 81 U/L (35-105) 04/16/25 04:50 Troponin T Baseline 17 ng/L (0-10) H 04/14/25 22:22 Troponin T 120 Minute 14.74 ng/L (0-10) H 04/15/25 01:10 Delta Troponin T -2.26 ABS# (0-10) L 04/15/25 01:10 Total Protein 7.0 g/dL (6.6-8.7) 04/16/25 04:50 Albumin 3.8 g/dL (3.5-5.2) 04/16/25 04:50 Globulin 3.2 g/dL (1.3-4.6) 04/16/25 04:50 Procalcitonin 0.03 ng/mL (0-0.5) 04/14/25 22:22 TSH 5.58 uIU/mL (0.27-4.20) H 04/14/25 22:22 Urine Color Yellow (Yellow) 04/14/25 22:19 Urine Appearance Clear (CLEAR) 04/14/25 22:19 Urine pH 7.0 (5-7) 04/14/25 22:19 Ur Specific [place] 1.038 (1.005-1.030) H 04/14/25 22:19 Urine Protein Negative (Negative) 04/14/25 22:19 Urine Glucose (UA) Negative (Normal) 04/14/25 22:19 Urine Ketones Negative (Negative) 04/14/25 22:19 Urine Blood Negative (Negative) 04/14/25 22:19 Urine Nitrate Negative (Negative) 04/14/25 22:19 Urine Bilirubin Negative (Negative) 04/14/25 22: Urine Urobilinogen 0.2 mg/dL (Negative) 04/14/25 22:19 Ur Leukocyte Esterase Negative (Negative) 04/14/25 22:19 Urine RBC 0-2 /hpf (0-2) 04/14/25 22:19 Urine WBC 0-5 /hpf (0-5) 04/14/25 22:19 Ur Squamous Epith Cells 0-5 /hpf (0-5) 04/14/25 22:19 Amorphous Sediment Not Reportable 04/14/25 22:19 Urine Bacteria None seen /hpf (NONE) 04/14/25 22:19 Hyaline Casts 0-4 /lpf H 04/14/25 22:19 Vitals Last Vital Signs Temp 98.0 F 04/16/25 16:57 Pulse 83 04/16/25 16:57 Resp 16 04/16/25 16:57 BP 173/92 04/16/25 16:57 Pulse Ox 92 04/16/25 16:57 O2 Del Method Room Air 04/16/25 11:14 Discharge Plan Discharge Patient Disposition: Home Condition: Stable Prescriptions: New aspirin 81 mg tablet 81 mg PO DAILY 30 Days Qty: 30 0RF Continued ferrous gluconate 324 mg (38 mg iron) tablet 324 mg PO BID Qty: 60 0RF atorvastatin 40 mg Tablet 40 mg PO QPM levothyroxine 100 mcg Tablet 100 mcg PO QAM Premarin 0.3 mg Tablet 0.3 mg PO QAM propranolol 20 mg tablet 20 mg PO BID olanzapine 5 mg Tablet 5 mg PO DAILY acetaminophen 500 mg Tablet 500 - 1,000 mg PO Q6H PRN (Reason: pain/fever) pantoprazole 40 mg Tablet,Delayed Release (Dr/Ec) 40 mg PO DAILY folic acid 1 mg Tablet 1 mg PO DAILY memantine 5 mg Tablet 5 mg PO BID duloxetine 30 mg Capsule,Delayed Release(Dr/Ec) 30 mg PO DAILY Rexulti 0.5 mg Tablet 0.5 mg PO DAILY Discharge Order = DC NOW: Discharge Order (Routine); Ordered 04/16/25 Ordered By: Diogo Sanchez Other Ambulatory Orders: MCT/Event Monitor 30 Days (Routine) Timeframe: 1 Day Facility: [facility] - Location: Radiology Ordered By: Diogo Sanchez Referrals: [facility] [Outside] Keshia Esquivel MD [Physician, Neurology] - 2 weeks Freddy Pugh MD [Physician, Internal Medicine] Discharge Diet: Cardiac Discharge Activity: Resume usual activity Patient Instructions: Altered Mental Status (ED), Opioid Safety, Patient Portal & [facility]ke Instructions Discharge Attestations Time Spent in Discharge Care*: greater than 30 min Quality Metrics Clinical Quality Measures [ No reported AMI, CVA or VTE this stay] Coding Level of Care Code 71843 Total time (in minutes) for Discharge: 45 Diagnoses Difficulty in swallowing R13.10 Dysphagia type: unspecified Acute alteration in mental status R41.82 Hyperlipidemia E78.5 Hypothyroidism E03.9 Hypokalemia E87.6 Status post fall Z91.81 Fall [id number].XXXA Encounter type: initial encounter
== END 2025-04-16 17:05 | disposition intermediate care facility (04) | DRG 948 ==
LOC: ER 04-15 00:55 → MEDSURG 04-15 01:40
PROVIDERS: Admitting Provider Internal Medicine; Emergency Provider Emergency Medicine; PCP Family Medicine; Visit Provider Family Medicine
DX: R41.82 Altered mental status, unspecified (principal); R13.10 Dysphagia, unspecified; E78.5 Hyperlipidemia, unspecified; E03.9 Hypothyroidism, unspecified; E87.6 Hypokalemia; W01.0XXA Fall on same level from slipping, tripping and stumbling without subsequent striking against object, initial encounter; F03.90 Unspecified dementia, unspecified severity, without behavioral disturbance, psychotic disturbance, mood disturbance, and anxiety; R29.810 Facial weakness; Z79.82 Long term (current) use of aspirin; Z87.440 Personal history of urinary (tract) infections
CPT/HCPCS: 36415; 36416; 70450; 70496; 70498; 70551; 71045; 71250; 74176; 80053; 81001; 82962; 83605; 83735; 84100; 84145; 84443; 84484; 85025; 87040; 93005; 93306; 96372; 97116; 97162; 99285; J1644; J2405; J2470; J7030; J9999

== ENCOUNTER 2025-05-22 14:13 | Outpatient (CLI) | payer MEDICARE, OTHER, SELFPAY ==
[2025-05-22 14:36] LABS: Glucose Urine UA Negative (Normal); Nitrate Urine Negative (Negative); Specific Gravity, Urine 1.010 (1.005-1.030)
[2025-05-22 14:41] LABS: Add Urine Microscopic? YES; Universal Test for UA Present (0)
[2025-05-22 15:46] LABS: UA Slide Review UA Slide Review Perf
== END 2025-05-22 14:14 | disposition home or self-care (01) ==
PROVIDERS: PCP Family Medicine; Visit Provider Family Medicine
DX: N39.0 Urinary tract infection, site not specified (principal)
CPT/HCPCS: 81001; 87086

== ENCOUNTER 2025-06-08 11:19 | Outpatient (CLI) | payer MEDICARE, OTHER, SELFPAY ==
[2025-06-08 11:42] LABS: Glucose Urine UA Negative (Normal); Nitrate Urine Negative (Negative); Specific Gravity, Urine 1.007 (1.005-1.030)
[2025-06-08 11:51] LABS: Add Urine Microscopic? YES
[2025-06-08 12:02] LABS: UA Slide Review UA Slide Review Perf
== END 2025-06-08 11:20 | disposition home or self-care (01) ==
PROVIDERS: PCP Family Medicine; Visit Provider Family Medicine
DX: N39.0 Urinary tract infection, site not specified (principal)
CPT/HCPCS: 81001; 87086